=== PATIENT | male | born 1955 | race Caucasian/White ===

== ENCOUNTER 2018-09-27 06:50 | Outpatient (CLI) | payer MEDICARE, OTHER ==
--- NOTE | 2018-09-27 08:05 | ULT ---
BILATERAL RENAL ULTRASOUND: Date: 09/27/18 INDICATION: Right-sided flank pain and abdominal pain. FINDINGS: Right kidney measures 10.3 x 7.5 x 6.2 cm. There is mildly prominent extrarenal pelvis involving the right kidney. Left kidney measures 13.3 x 8.0 x 6.0 cm. There is a 3.0 cm cyst seen involving the lateral aspect of the inferior pole of left kidney. No hydronephrosis or solid renal lesion is evident. The pre-void bladder volume is 168 mL. IMPRESSION: 1. Left renal cyst. 2. Extrarenal pelvis of right kidney. POS: [facility]
== END 2018-09-27 06:51 | disposition home or self-care (01) ==
LOC: ULT 06:50
PROVIDERS: ATTEND Internal Medicine Endocrinology, Diabetes & Metabolism
DX: R10.9 Unspecified abdominal pain (principal); N28.1 Cyst of kidney, acquired
CPT/HCPCS: 76770

== ENCOUNTER 2018-10-12 14:29 | Emergency (ER) | payer MEDICARE, OTHER ==
[2018-10-12] MEDS ORDERED: Ondansetron PF 4 MG/2 ML Vial ONE (15:53)
[2018-10-12] MEDS ORDERED: Ketorolac Tromethamine 30 MG/ML VIAL ONE (15:53)
[2018-10-12 16:15] LABS: #Basophils 0.1 thou/uL (0.0-0.2); #Eosinphils 0.1 thou/uL (0.0-0.7); #Lymphocytes 1.6 thou/uL (1.20-3.40); #Monocytes 0.8 thou/uL (0.11-0.59); #Neutrophils 9.2 thou/uL (1.40-6.50); %Basophils 0.5 % (0.0-1.0); %Eosinophils 0.7 % (0.0-10.0); %Lymphocytes 13.9 % (21.0-51.0); %Monocytes 6.7 % (0.0-10.0); %Neutrophils 78.1 % (42.0-75.0); Hemoglobin 18.2 g/dL (14.0-18.0); Mean Corpuscular HGB CONC 34.5 g/dL (32.0-36.0); Mean Corpuscular Hemoglobin 33.1 pg (27.0-31.0); Mean Corpuscular Volume 95.8 fL (78.0-98.0); Mean Platelet Volume 9.2 fL (7.4-10.4); Platelet Count 270 thou/uL (130-400); RBC Distribution Width 11.7 % (11.5-14.5); Red Blood Cell (RBC) Count 5.52 mill/uL (4.70-6.10); White Blood Cell (WBC) Count 11.7 thou/uL (4.8-10.8)
[2018-10-12 17:01] LABS: Bilirubin Negative (Negative); Blood, Urine Negative (Negative); Clarity CLEAR (Clear); Glucose, Urine (Dipstick) 500 mg/dL (Negative); Leukocyte Negative (Negative); Nitrite Negative (Negative); Protein, Urine (Dipstick) Negative (Neg-Trace); Specific Gravity, Urine 1.035 (1.002-1.036); Urobilinogen 0.2 mg/dL (0.2-1.0); pH, Urine 5.5 (5.0-9.0)
[2018-10-12] MEDS ORDERED: Morphine 4 MG/ML VIAL ONE (17:09)
[2018-10-12 17:21] LABS: Calcium 9.7 mg/dL (7.8-10.44); Chloride 99 mmol/L (98-107); Potassium 4.1 mmol/L (3.5-5.1); Sodium 135 mmol/L (136-145)
[2018-10-12 17:22] LABS: Globulin 2.4 g/dL (2.4-3.5); Glucose 156 mg/dL (80-115); Protein, Total 6.4 g/dL (5.8-8.1)
[2018-10-12 17:23] LABS: Anion Gap 13 mmol/L (10-20); Carbon Dioxide 27 mmol/L (23-31)
[2018-10-12 17:24] LABS: Bilirubin, Total 1.1 mg/dL (0.2-1.2)
[2018-10-12 17:25] LABS: Alkaline Phosphatase 66 U/L (40-150); Calc. Creatinine Clearance 0 mL/min (70-130); Estimated GFR-MDRD Greater than 90
[2018-10-12 17:26] LABS: BUN (Urea Nitrogen) 16 mg/dL (8.4-25.7)
[2018-10-12 17:27] LABS: AST (SGOT) 14 U/L (5-34)
[2018-10-12 17:28] LABS: ALT (SGPT) 18 U/L (8-55); Lipase 12 U/L (8-78)
--- NOTE | 2018-10-12 17:32 | CT ---
CT ABDOMEN AND PELVIS WITHOUT CONTRAST 10/12/18 HISTORY: Back pain. FINDINGS: Absence of oral and IV contrast reduces the sensitivity of the exam particularly for evaluation of so lid organs and bowel. There is a 4 mm peripheral nodule at the right lung base. There is irregularity of the liver surface suspicious for cirrhosis. Heterogeneous lesions are seen in the liver, largest is in the left lobe measuring about 3.4 cm. There are adjacent 19 mm similar lesion is seen in the le ft lobe of the liver. No calcified gallstones are seen. No free air or free fluid is noted in the abd omen or pelvis. No calculi is seen in the kidneys, ureters or the urinary bladder. No hydroureteronephrosis seen. The prostate is enlarged. There is a 3.5 cm exophytic cyst arising from the left kidney. There is colonic diverticulosis. There is osteoarthritic lesions in the thoracolumbar spine and the p сергей. A soft tissue mass is seen in association with the destruction of the right transverse process extending to pedicle and body of L3 vertebra. A 4.5 cm soft tissue mass is seen along with destructi on of the posterior aspect of the right 9th rib. There is a fat containing right inguinal hernia. A n ormal appearing appendix is present. IMPRESSION: 1. No CT evidence of urinary tract calculi or obstruction. 2. Left renal cyst. 3. Colonic diverticulosis. 4. Prostatic enlargement. 5. Findings suspicious for metastatic disease involving the bones, liver, and lung. 6. Small hiatal hernia. POS: [facility]
== END 2018-10-12 18:14 | disposition home or self-care (01) ==
LOC: ERS 14:29
DX: M89.9 Disorder of bone, unspecified (principal); E11.9 Type 2 diabetes mellitus without complications; I10 Essential (primary) hypertension
CPT/HCPCS: 74176; 80053; 81003; 83690; 85025; 96361; 96374; 96375; J1885; J2270; J2405

== ENCOUNTER 2018-10-14 21:36 | Inpatient (IN) | payer MEDICARE, OTHER ==
[2018-10-14 23:07] LABS: #Eosinphils 0.1 thou/uL (0.0-0.7); #Lymphocytes 1.3 thou/uL (1.20-3.40); #Monocytes 0.9 thou/uL (0.11-0.59); #Neutrophils 10.3 thou/uL (1.40-6.50); %Basophils 0.3 % (0.0-1.0); %Eosinophils 0.6 % (0.0-10.0); %Monocytes 7.4 % (0.0-10.0); %Neutrophils 81.7 % (42.0-75.0); Mean Corpuscular HGB CONC 34.8 g/dL (32.0-36.0); Mean Corpuscular Hemoglobin 33.6 pg (27.0-31.0); Mean Corpuscular Volume 96.5 fL (78.0-98.0); Platelet Count 236 thou/uL (130-400); RBC Distribution Width 11.6 % (11.5-14.5); Red Blood Cell (RBC) Count 5.05 mill/uL (4.70-6.10); White Blood Cell (WBC) Count 12.6 thou/uL (4.8-10.8)
[2018-10-14] MEDS ORDERED: Morphine 2 MG/ML SYRINGE ONE (23:09)
[2018-10-14] MEDS ORDERED: Ketorolac Tromethamine 30 MG/ML VIAL ONE (23:10)
[2018-10-14] MEDS ORDERED: Ondansetron PF 4 MG/2 ML Vial ONE (23:10)
[2018-10-14 23:28] LABS: ALT (SGPT) 14 U/L (8-55); AST (SGOT) 15 U/L (5-34); Albumin 4.2 g/dL (3.4-4.8); Alkaline Phosphatase 70 U/L (40-150); Anion Gap 18 mmol/L (10-20); BUN (Urea Nitrogen) 16 mg/dL (8.4-25.7); Bilirubin, Total 1.2 mg/dL (0.2-1.2); Calc. Creatinine Clearance 0 mL/min (70-130); Calcium 10.5 mg/dL (7.8-10.44); Carbon Dioxide 23 mmol/L (23-31); Chloride 96 mmol/L (98-107); Estimated GFR-MDRD Greater than 90; Glucose 149 mg/dL (80-115); Lipase 15 U/L (8-78); Potassium 3.7 mmol/L (3.5-5.1); Protein, Total 6.2 g/dL (5.8-8.1); Sodium 133 mmol/L (136-145)
[2018-10-15] MEDS ORDERED: Morphine 2 MG/ML SYRINGE ONE ×3 (02:59→10:07)
[2018-10-15] MEDS ORDERED: Ondansetron PF 4 MG/2 ML Vial IVP PRN (08:46)
[2018-10-15] MEDS ORDERED: Acetaminophen 325 MG TAB PO PRN (08:46)
[2018-10-15] MEDS ORDERED: Zolpidem Tartrate 5 MG TAB PO PRN (08:46)
[2018-10-15] MEDS ORDERED: Enoxaparin Sodium 40 MG/0.4 ML SYRINGE SC SCH (09:00)
[2018-10-15] MEDS ORDERED: Dextrose 50% Abboject 50 ML SYRINGE SLOW IVP PRN (09:05)
[2018-10-15] MEDS ORDERED: Dextrose 5% in Water 1,000 ML IV PRN (09:05)
[2018-10-15] MEDS ORDERED: Enoxaparin Sodium 40 MG/0.4 ML SYRINGE ONE (09:06)
[2018-10-15] MEDS ORDERED: Famotidine 20 MG TAB ONE (09:07)
[2018-10-15] MEDS ORDERED: Morphine 4 MG/ML VIAL SLOW IVP PRN (09:30)
--- NOTE | 2018-10-15 09:55 | CT ---
CT CHEST WITH CONTRAST: Date: 10/15/18 COMPARISON: CT abdomen/pelvis dated 10/12/18. HISTORY: Evaluate lung lesion seen on prior CT. TECHNIQUE: Multiple contiguous axial images were obtained in a CT of the chest with contrast. Coronal reformats were performed. FINDINGS: There is a 2.4 cm mass in the right lower lobe. Other scattered smaller nodules are seen throughout t he right lung. Atelectasis is seen in both lung bases. No pneumothorax or pleural effusion seen. The heart is normal in size without focal cardiac abnormality. No hilar or mediastinal lymphadenopath y seen. There are calcified hilar and mediastinal lymph nodes. There is a 4.2 cm mass involving the right posterior 9th rib. A similar mass measuring 3.0 cm in size involves the anterior 4th rib on the right. A destructive mass is seen in the left apex measuring 6. 0 cm in size involving the 2nd rib. There is a heterogeneous area in the left lobe of the liver measuring approximately 3.2 cm in size, w hich does not meet criteria for a hemangioma and could represent a metastatic lesion. No other liver lesions are seen. The other visualized subdiaphragmatic structures are unremarkable. The chest wall s oft tissues are unremarkable. IMPRESSION: 1. Multifocal pulmonary metastases in the right lung. 2. Multiple osseous lesions are suspicious for osseous metastatic disease. 3. Lesion in the liver does not meet criteria for hemangioma and may represent a metastatic lesion t o the liver. POS: [facility]
[2018-10-15] MEDS: Famotidine 20 MG TAB PO SCH ×3 (10:10→20:17)
[2018-10-15] MEDS: Lisinopril/Hydrochlorothiazide 10 mg/12.5 mg Tablet PO SCH ×2 (10:10→12:03)
[2018-10-15] MEDS ORDERED: Morphine 4 MG/ML VIAL ONE (10:16)
[2018-10-15] MEDS ORDERED: Iopamidol 370 76% 100 ML VIAL ONE (12:42)
--- NOTE | 2018-10-15 13:59 | HP ---
HISTORY OF PRESENT ILLNESS: This is a 63-year-old white male, who presents with intractable pain. The patient was first seen on September 25, with a 5-week history of back pain. 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 At that time, he was given pain medications and muscle relaxers; however, he continued to have back pain. He was seen again on October 10, and renal ultrasound and chest x-ray were ordered. Renal ultrasound was found to be unremarkable for any renal lesions. The chest x-ray is still pending. However, the patient was complaining of increasing pain. No nausea or vomiting. He has been on pain medicines, complaining of constipation. He has had no weight change. His appetite has been normal. He presented to this emergency room, where a CAT scan was ordered where he was found to have soft tissue lesions, one on the right L3 transverse process as well as a lung lesion and multiple small liver lesions. PAST MEDICAL HISTORY: Includes history of kidney stones, prostatitis, hypertension, hyperlipidemia, and diabetes, followed by Dr. Thomason. PAST SURGICAL HISTORY: Herniated disk repair, lumbar surgery in 2000; left hernia surgery by Dr. Proctor in 1997; recent colonoscopy by Dr. Keller. FAMILY HISTORY: Father with diabetes, mother with hypertension, sisters with diabetes, paternal grandmother with diabetes, maternal grandfather with some unknown cancer, and maternal grandmother with diabetes. SOCIAL HISTORY: He is . He has never smoked. 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 He has one son, one daughter Irena with 3 children. MEDICATIONS: Medications include: 1. Lisinopril/hydrochlorothiazide daily. 2. Metformin 500 b.i.d. 3. Forxiga 10 daily. ALLERGIES: NONE. REVIEW OF SYSTEMS: As above. PHYSICAL EXAMINATION: VITAL SIGNS: Stable, afebrile. GENERAL: Presently with some back pain. HEENT: Clear. No lymphadenopathy noted. HEART: Regular rate and rhythm without murmur. LUNGS: Clear. ABDOMEN: Soft. Nontender. EXTREMITIES: No inguinal lymphadenopathy noted. No edema was present. LABORATORY DATA: White count 12.6, H and H 17 platelets 236. Sodium 133, potassium 3.7, creatinine 0.69, BUN 16, glucose 149, CRP 2.4, AST 13, and ALT 14. CT scan, as above. ASSESSMENT: 1. Intractable back pain. 2. Right L3 spinal lesion, which may be responsible for his back pain. 3. Liver and lung lesions, rule out metastatic disease. 4. Constipation. 5. Hypertension. 6. Hyperlipidemia. 7. Diabetes. PLAN: 1. We will consult Neurosurgery for the right L3 spinal lesion. This may be responsible for most of his pain. 2. Consult GI and Pulmonary for the liver and lung lesions. I am unsure about the approach to making the diagnosis. Probably, we would attempt to biopsy the most easily accessible lesion. 3. We will do a soapsuds enema for constipation. 4. We will order a CT of the chest with and without contrast. 5. I had a long discussion with the patient, his , and his daughter Irena. Job ID: [id number]
[2018-10-15] MEDS ORDERED: GoLYTELY 4,000 ml Bottle PO SCH (15:00)
[2018-10-15] MEDS ORDERED: Morphine 2 MG/ML SYRINGE SLOW IVP PRN (15:01)
[2018-10-15] MEDS ORDERED: Ketorolac Tromethamine 30 MG/ML VIAL ONE (15:26)
[2018-10-15 15:41] VITALS: BMI 29.0
[2018-10-15] MEDS: Morphine 4 MG/ML VIAL SLOW IVP PRN ×2 (17:38→20:41)
--- NOTE | 2018-10-15 21:15 | CON ---
DATE OF CONSULTATION: 10/15/2018 GI INPATIENT CONSULTATION NOTE REASON FOR CONSULTATION: Metastatic disease and liver lesion. HISTORY OF PRESENT ILLNESS: Reinier Leone is a 63-year-old gentleman being admitted for workup for what appear to be diffuse metastatic disease. He has a history significant only for diabetes, hypertension, and a bilateral inguinal hernia repair. He saw my partner, Dr. Tommy Ruth back in July 2017 for a positive Cologuard test and he had a colonoscopy at that time, which showed only 2 small polyps, 1 was hyperplastic and the other was an adenoma. They were both removed and Dr. Ruth recommended a 5-year followup colonoscopy interval. Mr. Leone reports that about 6 weeks ago, he started developing pain in his back, this has been slowly worsening. He started to get some knots in the ribs on his sides. The pain has been a bit migratory from one side of the back to the other, but now significantly debilitating. He was started on muscle relaxers and pain medications and with this, he has had a bit of constipation. His last bowel movement was about a week ago. There is no significant nausea or vomiting. His bowel habits were normal prior to getting started on the pain medications. He had a CT scan of the abdomen and pelvis last week, which was concerning for metastatic disease. CT of the chest was performed earlier today and this also demonstrates a 2.4 cm mass in the right lower lobe of the lung with other nodules in that area. He has several lesions to the ribs and a 3.2 cm lesion in the left lobe of the liver, all consistent with multifocal metastatic disease. A primary lesion is not clearly evident. REVIEW OF SYSTEMS: Full review of systems including constitutional, head, eyes, ears, nose, throat, GI, , cardiovascular, respiratory, musculoskeletal, and neurologic systems is negative except as noted in the HPI. PAST MEDICAL HISTORY: 1. Tubular adenoma of the colon, removed in July 2017. 2. Diabetes. 3. Hypertension. 4. Bilateral inguinal hernia repair. 5. Metastatic disease, unknown etiology, diagnosed within the past couple of weeks. ALLERGIES: NO KNOWN DRUG ALLERGIES. OUTPATIENT MEDICATIONS: 1. Lisinopril/hydrochlorothiazide. 2. Metformin. 3. Tylenol with Codeine. 4. Flexeril. SOCIAL HISTORY: No smoking, alcohol, or drug use. FAMILY HISTORY: A nephew had colon polyps. PHYSICAL EXAMINATION: VITAL SIGNS: Pulse 91, blood pressure 131/75, temperature 98.5, and 96% oxygen saturation on room air. GENERAL: A 63-year-old man, lying in bed, in no acute distress, in [id number] chronic pain. SKIN: No jaundice. No rashes were palpable. EYES: No scleral icterus. Extraocular movements intact. ENT: Mucous membranes are moist. No oral lesions. LYMPH: No submandibular or supraclavicular lymphadenopathy. THYROID: Nontender to palpation. HEART: Regular rate and rhythm. LUNGS: Clear to auscultation bilaterally. ABDOMEN: Bowel sounds hypoactive, but present. Soft and nontender to palpation throughout. EXTREMITIES: No peripheral edema. VESSELS: Radial pulses 2+ bilaterally. NEUROLOGIC: Cranial nerves 2 through 12 intact bilaterally. No focal deficits. LABORATORY STUDIES: WBC 12.6, hemoglobin 17, platelets 236. Sodium 133, potassium 3.7, BUN 16, creatinine 0.69, calcium 10.5. Lipase 15. LFTs all normal with total bilirubin 1.2, alkaline phosphatase 70, AST 15, ALT 14, albumin 4.2, lipase 15, and CRP is 2.48. IMAGING STUDIES: CT of the abdomen and pelvis from October 12 was performed, this was a noncontrast exam. It showed findings suspicious for metastatic disease to bone, liver, and lung. CT of the chest performed earlier today, 10/15/2018, showed a 2.4 cm mass in the right lower lobe of the lung, with other regional lung nodules. There is a 4.2 cm mass in the 9th ninth rib. There is a 3 cm lesion in the right 4th rib, and there is a 6 cm lesion in the 2nd rib. There is a 3.2 cm left liver mass on this exam. Liver appeared more heterogeneous on the prior scan. ASSESSMENT AND PLAN: 1. Metastatic disease to bone, lung, and liver, unknown primary. 2. A 4.2 cm right liver lesion. 3. Constipation, likely secondary to recent opioid and muscle relaxer use. I discussed with the patient that his imaging findings are certainly concerning for metastatic malignancy. Primary source is unclear. I feel colonic lesion would be less likely given that he had a colonoscopy just 1 year ago; however, there is a possibility of fast growing new lesion or missed lesion. Also, consider upper GI primary. For our part, we will plan on bowel preparation this evening with EGD and colonoscopy tomorrow. We will also order tumor markers including AFP, CEA, and CA 19-9 levels. I agree with Oncology and Pulmonary consultation as well. Thank you for the consultation. Please call at any time with questions or concerns. Job ID: [id number]
[2018-10-15] MEDS: Ketorolac Tromethamine 30 MG/ML VIAL IVP PRN (23:21)
[2018-10-16] MEDS: Morphine 4 MG/ML VIAL SLOW IVP PRN ×3 (01:08→14:44)
[2018-10-16] MEDS: 1/2 NS w/KCL 20 mEq 1,000 ML IV SCH ×2 (01:23→09:08)
--- NOTE | 2018-10-16 01:26 | CON ---
DATE OF CONSULTATION: REASON FOR CONSULTATION: Metastatic cancer. HISTORY OF PRESENT ILLNESS: A 63-year-old male presenting with worsening back pain. 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 He had tried some pain medicines and muscle relaxers that did not help. He was seen again on October 10, 2018, and had a renal ultrasound and chest x-ray that were unremarkable. However, along with worsening pain, he had a CT of the abdomen and pelvis on October 12, 2018, that showed heterogeneous lesions in the liver, the largest in the left lobe measuring 3.4 cm. He also had a 4.5 cm soft tissue mass along the 9th right rib. CT also showed a soft tissue mass in association with destruction of the right transverse process extending to the pedicle and body of L3 vertebra. The patient states that his pain has been in the upper back, lower back bilaterally and constantly moves around. He denies any pain in the abdomen or the chest. Denies any nausea, vomiting, or diarrhea. He has some constipation since starting pain medicines. Denies any fevers, night sweats or weight loss or poor appetite. He states that he overall feels pretty well other than the pain. The patient smoked a few cigarettes for 2 or 3 years in the 70s, but has not smoked since and does not drink any alcohol. He denies any extensive history of cancer, but stated his mother had lung cancer and he thinks his maternal grandmother had some type of cancer. REVIEW OF SYSTEMS: A 10-point review of systems is negative except as per HPI. PAST MEDICAL HISTORY: Kidney stones, prostatitis, hypertension, hyperlipidemia and diabetes. PAST SURGICAL HISTORY: Herniated disk repair, lumbar surgery in 2000. Left hernia surgery by Dr. Proctor in 1997. FAMILY HISTORY: Father with diabetes. Mother with hypertension. Sister with diabetes. Paternal grandmother with diabetes. Maternal grandfather with some unknown cancer. Maternal grandmother with diabetes and mother with lung cancer. SOCIAL HISTORY: . Former smoker of a few cigarettes a day for 2 to 3 years in the 1970s and has not smoked since. No alcohol. MEDICATIONS: Reviewed. ALLERGIES: NONE. PHYSICAL EXAMINATION: VITAL SIGNS: Temperature 97.6, pulse 84, respirations 18, saturating 95% on room air, and blood pressure 155/91. GENERAL APPEARANCE: The patient is lying in bed, in no acute distress. HEENT: Normocephalic, atraumatic. Anicteric sclerae. CARDIOVASCULAR: S1 and S2. Regular rate and rhythm. RESPIRATIONS: Clear to auscultation bilaterally. ABDOMEN: Soft, nondistended, and nontender with positive bowel sounds. EXTREMITIES: No edema. LYMPH: No lymphadenopathy palpable. NEUROLOGIC: Cranial nerves 2 through 12 grossly intact and otherwise nonfocal and moves all extremities. PSYCHIATRIC: Awake, alert, and oriented x3. LABORATORY DATA: White blood cells 12.6, hemoglobin 17.0, platelets of 236. Sodium 133, potassium 3.7, chloride 96, carbon dioxide 23, BUN 16, creatinine 0.69, glucose 149. Calcium 10.5. Albumin 4.2. CRP 2.48. IMAGING DATA: CTA of the abdomen and pelvis without contrast shows soft tissue mass around L3 and a 4.5 cm soft tissue mass in the right 9th rib along with heterogeneous lesions in the liver, largest in the left lobe measuring 3.4 cm and adjacent 19 mm similar lesion in the left lobe of the liver. This exam was limited due to lack of IV or oral contrast. CTA of the chest with contrast on October 15, shows a 2.4 cm mass in the right lower lobe of the lung and other scattered smaller nodules throughout the right lung. No hilar or mediastinal lymphadenopathy. There is a 4.2 cm mass involving the right posterior 9th rib, similar mass 3 cm in size involving the anterior 4th rib on the right, destructive mass seen on the left apex measuring 6 cm in size involving the second rib and heterogeneous area in the left lobe of the liver measuring 3.2 cm in size. No other liver lesions are seen on the CT of the chest. ASSESSMENT AND PLAN: A 63-year-old male presenting with worsening back pain and found to have multiple suspicious lesions for metastatic disease throughout the right lung, the liver, and bones. Other than pain, the patient is asymptomatic and overall feels well. He has a very limited smoking history and quit smoking over 40 years ago. He had a recent colonoscopy within the last year with removal of couple polyps. There is no other localizing symptoms other than back pain, which is likely from this osseous lesion seen on imaging. He has been seen by Dr. Varner, and is scheduled for EGD and colonoscopy tomorrow by Dr. Ruth. Dr. Reyes has been consulted for evaluation of possible lung biopsy. After looking at the scan, I believe the lung may be the most easily accessible and at least invasive for a biopsy as I do not see any peripheral lymph nodes for sampling. Due to liver lesions, AFT, CEA, CA-19-9 are currently pending. We would also recommend repeating a CT of the abdomen and pelvis with oral and IV contrast, which can be done after his endoscopies tomorrow as he is currently drinking his bowel prep. We would also recommend a bone scan for further evaluation. I have discussed the possibilities of different types of cancer with the patient, his and his daughter, and we will continue to follow along this patient with you. Thank you for this consult. Job ID: [id number]
--- NOTE | 2018-10-16 01:58 | CON ---
DATE OF CONSULTATION: 10/15/2018 SERVICE: Pulmonary Medicine. REASON FOR CONSULT: Pulmonary nodules. HISTORY OF PRESENT ILLNESS: The patient is a 63-year-old white male with past medical history significant for absolutely nothing. He does have a family history of dermatofibromas and have undergone excision on multiple occasions. That being said, this runs in his family. He has never had any significant issues with it and it has never caused any discomfort to him. He was in his usual state of health until about 6 weeks ago when he started having onset of back discomfort. It seemed to be severe in one location for a couple of days and then stop hurting him. It would then go to a different location and so on and so forth. These pains migrated for a period of time. After about 3 weeks of that, he underwent a CT of the back, which was abnormal. This prompted him to have a CT of the chest, abdomen, and pelvis. There were multiple lesions scattered throughout bilateral lungs. There were multiple osseous metastases that were identified. Ultimately, he was put in the hospital to expedite a workup. They are also managing his intractable pain at this point. PAST MEDICAL HISTORY: 1. Hypertension. 2. Dyslipidemia. 3. Type 2 diabetes mellitus. 4. History of nephrolithiasis. PAST SURGICAL HISTORY: 1. Herniated disk repair. 2. Lumbar surgery. 3. Herniorrhaphy. 4. Colonoscopy. 5. Excision of dermatofibromas. FAMILY HISTORY: Noncontributory. As previously noted, multiple family members have these skin lesions that required excision from time to time. SOCIAL HISTORY: He is . He is a lifelong nonsmoker. He has no exposure to chemicals, dust, asbestos, or tuberculosis. He denies any alcohol or illicit drugs. ALLERGIES: NO KNOWN DRUG ALLERGIES. MEDICATIONS: List of his inpatient medications was reviewed. No specific updates were made at this time. REVIEW OF SYSTEMS: General, head, ears, eyes, nose, throat, cardiovascular, respiratory, genitourinary, musculoskeletal, neurologic, and skin are negative except as mentioned in the HPI. PHYSICAL EXAMINATION: VITAL SIGNS: Afebrile, pulse 84, blood pressure 155/91, respirations 18, saturation 95% on room air. GENERAL: The patient is awake, alert, in no apparent distress. LUNGS: Excellent air entry with no prolonged expiratory phase, wheezing, rhonchi, or crackles. HEART: Normal rate, regular. ABDOMEN: Soft, nontender, nondistended. Bowel sounds are positive. MUSCULOSKELETAL: No cyanosis or clubbing. There is no pitting in the bilateral lower extremities. NEUROLOGIC: Grossly nonfocal. LABORATORY DATA: WBC 12.6, hemoglobin 17.0, platelets 236,000. Basic metabolic profile and liver function studies were essentially unremarkable other than a calcium of 10.5. CRP 2.48. IMAGIN. CT of the chest demonstrates multiple scattered bilateral pulmonary nodules. Most of these appeared to be pleural-based. There is soft tissue and osseous destruction present. 2. A CT of the abdomen and pelvis demonstrates renal cyst. Colonic diverticulosis. Prostate enlargement. Small hiatal hernia. ASSESSMENT: 1. Widely metastatic process, underlying etiology unknown. 2. Pulmonary nodules. 3. Pleural-based nodules. 4. Calcified mediastinal lymph nodes without diagnostic criteria for lymphadenopathy. DISCUSSION AND PLAN: Our differential remains wide. It could be a neoplastic process, inflammatory process, or infectious process. At this point, tissue was required to make this diagnosis. He is already set up for an EGD/colonoscopy for tomorrow. If there is nothing of note to biopsy, we can expedite an IR-guided biopsy of the right posterior thoracic lesion that is destroying the rib. Pulmonary will continue to follow along for the time being. I will suspend the Lovenox until the biopsy is complete. 70 minutes have been devoted to this patient in various activities. I personally reviewed all imaging studies and laboratory data noted within this document. For fifty percent of this time, I was interacting with the patient at the bedside or coordinating care with the care team. For the remainder of the time I was immediately available to the patient in the hospital unit. Job ID: [id number] [facility]
[2018-10-16 06:26] LABS: #Basophils 0.1 thou/uL (0.0-0.2); #Eosinphils 0.1 thou/uL (0.0-0.7); #Lymphocytes 1.5 thou/uL (1.20-3.40); #Monocytes 0.8 thou/uL (0.11-0.59); %Basophils 0.8 % (0.0-1.0); %Eosinophils 1.5 % (0.0-10.0); %Lymphocytes 19.6 % (21.0-51.0); %Monocytes 10.9 % (0.0-10.0); %Neutrophils 67.2 % (42.0-75.0); Mean Corpuscular HGB CONC 35.1 g/dL (32.0-36.0); Mean Corpuscular Hemoglobin 33.4 pg (27.0-31.0); Mean Corpuscular Volume 95.3 fL (78.0-98.0); Mean Platelet Volume 7.6 fL (7.4-10.4); Platelet Count 229 thou/uL (130-400); RBC Distribution Width 11.3 % (11.5-14.5); Red Blood Cell (RBC) Count 4.78 mill/uL (4.70-6.10); White Blood Cell (WBC) Count 7.5 thou/uL (4.8-10.8)
[2018-10-16 06:38] LABS: Anion Gap 14 mmol/L (10-20); BUN (Urea Nitrogen) 13 mg/dL (8.4-25.7); Calc. Creatinine Clearance 164 mL/min (70-130); Calcium 9.6 mg/dL (7.8-10.44); Carbon Dioxide 27 mmol/L (23-31); Chloride 101 mmol/L (98-107); Estimated GFR-MDRD Greater than 90; Glucose 135 mg/dL (80-115); Potassium 3.3 mmol/L (3.5-5.1); Sodium 139 mmol/L (136-145)
[2018-10-16] MEDS ORDERED: Morphine 4 MG/ML VIAL ONE (07:13)
[2018-10-16] MEDS ORDERED: Ketorolac Tromethamine 30 MG/ML VIAL ONE (09:20)
[2018-10-16] MEDS: Ketorolac Tromethamine 30 MG/ML VIAL IVP PRN ×3 (09:26→23:32)
[2018-10-16] MEDS ORDERED: Promethazine HCl 25 MG/ML VIAL IM PRN (12:44)
[2018-10-16] MEDS ORDERED: Ondansetron HCl/PF 4 MG/2 ML Vial IVP PRN (12:44)
[2018-10-16] MEDS ORDERED: Promethazine HCl 25 MG/ML VIAL SLOW IVP PRN (12:44)
--- NOTE | 2018-10-16 14:21 | CON ---
DATE OF CONSULTATION: 10/16/2018 SUBJECTIVE: The patient remains in good spirits, however, still has back pain. No nausea, vomiting, or chest pain. OBJECTIVE: VITAL SIGNS: Temperature 97.8, pulse 91, respirations 16, pulse ox 95, blood pressure 135/85. HEART: Regular rate and rhythm. LUNGS: Clear. ABDOMEN: Soft. LABORATORY DATA: White count 7.5, H and H 16 and 45. Potassium 3.3, creatinine 0.6. Blood sugar 150, 153, 135. CA 2.68. ASSESSMENT: 1. Intractable back pain. 2. Right L3 spinal lesion, which may be responsible for his back pain. 3. Liver, lung, and bone lesions. Rule out cancer. 4. Constipation, improved. 5. Hypertension. 6. Hyperlipidemia. 7. Diabetes. PLAN: 1. EGD and colonoscopy per Dr. Ruth today. 2. Based on GI findings, the patient may undergo a bronchoscopy with possible biopsy by Dr. Reyes. 3. Repeat CT of the abdomen and pelvis with oral and IV contrast after the procedures. 4. Discussed the case with the patient and his daughter, Irena. Job ID: [id number]
[2018-10-16] MEDS: Famotidine 20 MG TAB PO SCH ×2 (14:22→19:35)
[2018-10-16 14:24] LABS: INR-International Normal Ratio 1.1; PTT 30.5 SEC (22.9-36.1); Prothrombin Time 14.5 SEC (12.0-14.7)
[2018-10-16] MEDS ORDERED: Sodium Bicarbonate 2.5 MEQ/5 ML VIAL ONE (14:45)
[2018-10-16] MEDS ORDERED: PROPOFOL 200 MG/20 ML VIAL ONE (15:47)
[2018-10-16] MEDS ORDERED: Lidocaine 1% PF 5 ML VIAL ONE (15:47)
--- NOTE | 2018-10-16 16:16 | PRG ---
DATE OF SERVICE: 10/16/2018 SERVICE: Pulmonary Medicine INTERVAL HISTORY: The patient is breathing comfortably from a respiratory standpoint. Denies any current chest pain, fevers, chills, nausea, or vomiting. Otherwise, there has been no notable change to his condition. His pain is currently under good control. He is not having any respiratory difficulties. PHYSICAL EXAMINATION: VITAL SIGNS: Afebrile, pulse 77, blood pressure 154/85, respirations 16, saturation 98% on room air. GENERAL: The patient is awake, alert, in no apparent distress. LUNGS: Decent air entry. There is no prolonged expiratory phase or wheezing. HEART: Normal rate and regular. ABDOMEN: Soft, nontender, and nondistended. Bowel sounds are positive. MUSCULOSKELETAL: No cyanosis or clubbing. There is no pitting in the bilateral lower extremities. NEUROLOGIC: Grossly nonfocal. ASSESSMENT: 1. Widely metastatic process, underlying etiology unknown. 2. Pulmonary nodules. 3. Pleural-based nodules. 4. Calcified mediastinal lymph nodes without diagnostic criteria for lymphadenopathy. DISCUSSION AND PLAN: If there is nothing of note that is biopsied on the colonoscopy or EGD, we can proceed with an IR-guided biopsy of the left posterior rib destroying lesion. There is no role for bronchoscopy at this time as the yield will be quite low. Pulmonary will continue to follow until we have a clear course of action moving forward. Job ID: [id number]
[2018-10-16] MEDS: Lisinopril/Hydrochlorothiazide 10 mg/12.5 mg Tablet PO SCH (16:42)
--- NOTE | 2018-10-16 16:58 | ULT ---
ULTRASOUND GUIDED BIOPSY OF A RIGHT POSTERIOR PARASPINAL/RIB MASS 10/16/18 COMPARISON: None. CORRELATION: Chest CT 10/15/18. FINDINGS: Successful right posterior paraspinal soft tissue mass/rib mass with ultrasound guidance. A total of four 18 gauge core biopsy samples were obtained. Lesional tissue is present. Final pathologic diagnos is is pending. Incidental echogenic focus in the right back, superior to the iliac crest is noted and may represent a lipoma measuring 1.8 cm. TECHNIQUE: Consent obtained to perform a biopsy of a soft tissue mass in the posterior right paraspinal region i nvolving a right 9th rib. The skin was prepped and draped in the sterile fashion. 1% lidocaine buffer ed with sodium bicarbonate used for local anesthesia. Under ultrasound guidance, a total of four 18 g auge core biopsy samples were obtained. Lesional tissue is present. Sample was placed RPMI as well as formalin. Final pathologic diagnosis is pending. IMPRESSION: Successful right soft tissue mass biopsy with ultrasound guidance. POS: [facility]
--- NOTE | 2018-10-16 17:08 | RAD ---
UPRIGHT INSPIRATORY AND EXPIRATORY CHEST RADIOGRAPH: 10/16/18 HISTORY: Right sided soft tissue biopsy. FINDINGS: Upright inspiratory and expiratory chest radiograph demonstrate chronic changes of the lung parenchym a. No pneumothorax. Normal cardiac silhouette. There are destructive changes involving the posterior right 5th rib. IMPRESSION: No pneumothorax. POS: [facility]
--- NOTE | 2018-10-16 18:44 | RAD ---
INSPIRATORY EXPIRATORY CHEST: 10/16/18 HISTORY: Patient is status post biopsy of a right posterior 9th rib lesion. Evaluate for pneumothorax. Some linear atelectatic change in the left base. There is some minimal subsegmental atelectasis in th e right base. There is no signs of pneumothorax. IMPRESSION: No evidence of pneumothorax post biopsy. POS: [facility]
[2018-10-17] MEDS: Morphine 4 MG/ML VIAL SLOW IVP PRN ×7 (00:28→19:55)
[2018-10-17] MEDS: Ketorolac Tromethamine 30 MG/ML VIAL IVP PRN ×3 (05:55→19:49)
[2018-10-17] MEDS: Famotidine 20 MG TAB PO SCH (08:45)
[2018-10-17] MEDS: Lisinopril/Hydrochlorothiazide 10 mg/12.5 mg Tablet PO SCH (08:45)
--- NOTE | 2018-10-17 12:23 | CT ---
CT ABDOMEN AND PELVIS WITH IV AND ORAL CONTRAST: History: Metastatic cancer. Back pain. Comparison: 10-12-18 FINDINGS: Small amount of pleural fluid is present at the partially visualized lung bases. The expansile mass i nvolving the posterior aspect of the right 9th rib is again demonstrated. A large destructive lytic l esion also involves the T11 vertebral body. Destructive masses involving the right side of the L3 and the right pelvis are similar in appearance to the prior study. Liver demonstrates a nodular contour. Within the left liver lobe, there is heterogeneous enhancement in the area of abnormality on previous noncontrast study. Centrally, some increased contrast accumula tion is present on the portal venous phase imaging. The increased contrast is surrounded by an ill-de fined area of decreased density. The overall abnormality is approximately 4.1 cm greatest oblique marcelo meter on the coronal reformatted images. No other liver masses are reliably demonstrated. Cysts arise from the cortex of the left kidney. Calcification within the arterial structures. Prostate gland is enlarged. Urinary bladder is unremarkable. IMPRESSION: 1. Back pain is likely related to the destructive osseous lesions of the right 9th rib, T11 and L3 ve rtebrae. 2. Liver lesion in left liver lobe is confirmed. It has an unusual appearance as detailed above. Like ly not a hemangioma. For further evaluation of the liver mass, please consider radionuclide PET scan or MRI of the liver. 3. Interval appearance of small bilateral pleural effusions. 4. Atherosclerosis. POS: [facility]
--- NOTE | 2018-10-17 12:37 | CON ---
DATE OF CONSULTATION: 10/17/2018 SUBJECTIVE: The patient remains stable, does have persistent right flank pain, still has moderate pain with movement and getting out of bed. OBJECTIVE: VITAL SIGNS: Temperature 97.9, pulse 75, respirations 20, pulse ox 96, blood pressure 138/87. GENERAL: Stable. HEART: Regular rate and rhythm. LUNGS: Clear. ABDOMEN: Soft. EXTREMITIES: No edema. LABORATORY DATA: None. ASSESSMENT: 1. Postoperative day #1, status post rib biopsy by Radiology. 2. Intractable back pain. 3. Right L3 spinal lesion, probably responsible for back pain. 4. Liver, lung, and bone lesions. 5. Constipation, resolved. 6. Hypertension. 7. Hyperlipidemia. 8. Diabetes. PLAN: 1. CT of the abdomen with IV and oral contrast today. 2. Bone scan today. 3. We will begin fentanyl 25 mcg patch and titrate upwards. 4. We will discuss the case with Dr. Oneill. 5. Awaiting results of the biopsy. 6. We will have to address the right flank pain and see if Neurosurgery needs further evaluation. 7. I talked with the family. Once treatment begins, possibilities of the lesions will shrink and will relieve the pressure off the back so that the patient may not need a back procedure. Job ID: [id number]
--- NOTE | 2018-10-17 16:50 | NM ---
WHOLE BODY BONE SCAN: 10/17/18 COMPARISON: CT abdomen/pelvis 10/17/18. HISTORY: Metastatic cancer. Evaluate extent of osseous metastatic disease. TECHNIQUE: A whole body bone scan was performed after the administration of 33 millicuries of technetium 99m MDP . FINDINGS: There is abnormal increased uptake of the radiopharmaceutical in multiple ribs and surrounding both s houlders. No increased uptake is seen in the spine. There is an area of decreased uptake in a right p osterior rib surrounding by increased uptake. This appears to be in the 9th rib and corresponds to th e abnormality seen on CT in the right posterior rib. The soft tissues are unremarkable without soft tissue abnormality. IMPRESSION: Multifocal areas of abnormal uptake of radiopharmaceutical in the ribs and surrounding the shoulders. This likely represents reactive bone formation surrounding the lytic metastases seen on CT. Evaluati on for lytic metastases is limited with bone scan and is only a result of healing or adjacent normal bone being stimulated adjacent to the lytic metastases. POS: [facility]
--- NOTE | 2018-10-17 23:23 | PRG ---
DATE OF SERVICE: 10/17/2018 SERVICE: Pulmonary Medicine. INTERVAL HISTORY: The patient is actually doing well from a respiratory standpoint. He denies having any cough. He is not having any fevers, chills, nausea, or vomiting. He is tolerating p.o. We are awaiting the results of some of the biopsies. The other biopsy results have come back. I shared the results of the biopsy and the CT of the abdomen and pelvis with the patient. We are still awaiting the results of the chest wall biopsy. PHYSICAL EXAMINATION: VITAL SIGNS: Afebrile. Pulse 76, blood pressure 164/94, respirations 18, and saturation 95% on room air. GENERAL: The patient is awake, alert, in no apparent distress. LUNGS: Excellent air entry. No prolonged expiratory phase, wheezing, rhonchi, or crackles. HEART: Normal rate and regular. ABDOMEN: Soft, nontender and nondistended. Bowel sounds are positive. MUSCULOSKELETAL: No cyanosis or clubbing. No pitting in the bilateral lower extremities noted. NEUROLOGIC: Grossly nonfocal. IMAGING: CT of the abdomen and pelvis re-demonstrates the liver lesion, which is not consistent with a hemangioma. Multiple osseous lesions are present in the right 9th rib, T11, and L3 vertebra. Bilateral pleural effusions are quite small. Bone scan demonstrates multifocal areas of abnormal uptake in the ribs, surrounding shoulders. ASSESSMENT: 1. Pulmonary nodules. 2. Pleural-based nodules. 3. Widely metastatic process, underlying etiology not currently known. DISCUSSION AND PLAN: We are awaiting the results of biopsy of the left chest wall lesion. Pulmonary will continue to follow along. We are still making an attempt to achieve pain control. Fentanyl patch has been initiated. Hopefully, the patient will have significant relief from this device. Job ID: [id number]
[2018-10-18] MEDS: Morphine 4 MG/ML VIAL SLOW IVP PRN ×6 (00:26→20:14)
[2018-10-18] MEDS: Ketorolac Tromethamine 30 MG/ML VIAL IVP PRN ×3 (03:24→20:12)
--- NOTE | 2018-10-18 06:25 | OP ---
DATE OF PROCEDURE: 10/16/2018 PROCEDURES PERFORMED: Esophagogastroduodenoscopy with biopsy and colonoscopy with snare polypectomy. PREOPERATIVE DIAGNOSES: Abnormal CT scan of the liver and chest showing metastatic disease of unknown primary. DESCRIPTION OF PROCEDURE: Informed consent was obtained from the patient. He was sedated with total intravenous anesthesia. The bite block was placed, and the endoscope was advanced easily to the second portion of the duodenum and retroflexion was performed in the stomach. The esophagus had grade B erosive esophagitis in the distal esophagus. The stomach had nonerosive erythematous gastritis in the body and antrum. Retroflex views in the stomach were unremarkable. First portion of the duodenum had erosive duodenitis and the second portion of the duodenum was normal. Biopsies were obtained from the stomach to rule out H. Pylori. The patient was turned around. Rectal exam was performed and was normal. The colonoscope was advanced to the cecum, where the ileocecal valve and appendiceal orifice were clearly identified. The preparation quality was fair at best. The procedure was not adequate for identifying [id number] lesions. There were no tumors or masses to explain the metastatic disease in the colon. The colon was extensively irrigated. There was diverticulosis throughout the colon. Retroflex views in the rectum were unremarkable. There was a 5 mm polyp removed by cold snare polypectomy from the rectum. IMPRESSION: 1. Erosive esophagitis, gastritis, and erosive duodenitis likely secondary to the Aleve, which he has been taking for pain. Biopsies were obtained from the stomach to rule out H. Pylori. 2. Small polyp removed from the rectum by cold snare polypectomy. 3. Diverticulosis throughout the colon. RECOMMENDATIONS: 1. Follow through with Interventional Radiology with biopsy of the lytic lesion. 2. CT scan of the abdomen and pelvis. Job ID: [id number]
[2018-10-18] MEDS ORDERED: Dexamethasone 10 MG/ML VIAL SLOW IVP ONE (08:09)
[2018-10-18] MEDS ORDERED: Dexamethasone 10 MG/ML VIAL SLOW IVP SCH (09:00)
[2018-10-18] MEDS ORDERED: Amlodipine 5 MG TAB PO SCH (09:00)
[2018-10-18] MEDS ORDERED: fentaNYL 50 mcg/hour Patch TD SCH (09:00)
[2018-10-18] MEDS: Lisinopril/Hydrochlorothiazide 20/25 mg Tablet PO SCH (09:16)
[2018-10-18] MEDS: Gabapentin 100 MG CAP PO SCH ×3 (09:17→20:07)
[2018-10-18] MEDS: Enoxaparin Sodium 40 MG/0.4 ML SYRINGE SC SCH (09:17)
[2018-10-18] MEDS: Polyethylene Glycol 3350 17 GM Packet PO SCH ×2 (09:22→12:31)
[2018-10-18] MEDS ORDERED: Metoprolol Tartrate 25 MG TAB PO SCH (12:00)
[2018-10-18] MEDS: Insulin Regular 300 UNITS/3 ML VIAL SC PRN ×2 (12:26→17:10)
--- NOTE | 2018-10-18 14:46 | CON ---
DATE OF CONSULTATION: 10/18/2018 SUBJECTIVE: The patient with chronic back pain. Presently, receiving fentanyl 25 patch. Still with moderate pain, requiring occasional IV morphine. OBJECTIVE: VITAL SIGNS: Temperature 98.0, pulse 72, respiration 16, pulse ox 95%, blood pressure 173/90. HEART: Regular rate and rhythm. LUNGS: Clear. ABDOMEN: Soft. LABORATORY DATA: Stomach and colon biopsy is benign. ASSESSMENT: 1. Chronic back pain secondary to T11 and L3 spinal lesions. 2. Postoperative day #2, status post T9 rib biopsy. 3. Liver, lung, and bone lesions. 4. Constipation. 5. Hypertension. 6. Hyperlipidemia. 7. Diabetes. PLAN: 1. I talked with Neurosurgery. They are presently talking with patient. No surgical intervention at this time. 2. Hopefully, biopsy results of the rib will be back today. Then, Dr. Oneill, can make decisions on treatment plan. 3. Increase fentanyl to 50 transdermal patch q.3 days. 4. Initiate Neurontin 100 t.i.d. 5. Physical Therapy to assist with ambulation. 6. MiraLax daily for constipation. 7. I talked at length again with multiple family members including the . 8. Consider Social Service assistance. Job ID: [id number]
[2018-10-18] MEDS: Metoprolol Tartrate 25 MG TAB PO SCH (20:07)
[2018-10-18] MEDS: Amlodipine 5 MG TAB PO SCH (20:08)
[2018-10-18] MEDS: Dexamethasone 4 mg/ml Vial SLOW IVP SCH (20:10)
[2018-10-19] MEDS: Insulin Regular 300 UNITS/3 ML VIAL SC PRN ×4 (05:38→20:24)
[2018-10-19] MEDS: Morphine 4 MG/ML VIAL SLOW IVP PRN ×3 (06:42→20:05)
[2018-10-19] MEDS: Ketorolac Tromethamine 30 MG/ML VIAL IVP PRN ×2 (06:47→10:36)
[2018-10-19] MEDS: Lisinopril/Hydrochlorothiazide 20/25 mg Tablet PO SCH (08:17)
[2018-10-19] MEDS: Dexamethasone 4 mg/ml Vial SLOW IVP SCH ×2 (08:18→20:06)
[2018-10-19] MEDS: Metoprolol Tartrate 25 MG TAB PO SCH ×2 (08:18→20:05)
[2018-10-19] MEDS: Polyethylene Glycol 3350 17 GM Packet PO SCH (08:18)
[2018-10-19] MEDS: Enoxaparin Sodium 40 MG/0.4 ML SYRINGE SC SCH (08:18)
[2018-10-19] MEDS: Gabapentin 100 MG CAP PO SCH ×2 (09:31→15:06)
--- NOTE | 2018-10-19 10:08 | PRG ---
DATE OF SERVICE: 10/18/2018 SERVICE: Pulmonary Medicine. INTERVAL HISTORY: The patient is breathing comfortably. He has no complaints of cough, fevers, chills, nausea, or vomiting. His strength is actually little bit better. His pain is under slightly better control. Otherwise, there has been no interval change to his condition. PHYSICAL EXAMINATION: VITAL SIGNS: Afebrile, pulse 82, blood pressure 178/98, respirations 12, and saturation 96% on room air. GENERAL: The patient is awake, alert, in no apparent distress. LUNGS: Excellent air entry without prolonged expiratory phase or wheezing. HEART: Normal rate, regular. ABDOMEN: Soft, nontender, nondistended. Bowel sounds are positive. MUSCULOSKELETAL: No cyanosis or clubbing. EXTREMITIES: There is no pitting in the bilateral lower extremities. NEUROLOGIC: Grossly nonfocal. LABORATORY DATA: Pathology of the gastric biopsy was unremarkable. It showed some gastritis. An adenoma was removed from the colon. Poorly differentiated spindle cell malignancy is present, suspicious for sarcoma. This was the soft tissue biopsy, which was ultrasound-guided. ASSESSMENT: 1. Spindle cell carcinoma, suspecting sarcoma, widely metastatic. 2. Intractable pain. DISCUSSION AND PLAN: At this point, the patient no longer has requirements for Pulmonary Critical Care opinion. As such, I will sign off. Unfortunately, the prognosis for this is likely quite poor. If I can be of any additional service, please give me a phone call. Job ID: [id number]
[2018-10-19] MEDS ORDERED: HYDROcodone/Acetaminophen 10/325 mg Tablet PO PRN (16:09)
[2018-10-19] MEDS: Amlodipine 5 MG TAB PO SCH (20:06)
[2018-10-19] MEDS: Gabapentin 300 MG CAP PO SCH (20:06)
[2018-10-19] MEDS: HYDROcodone/Acetaminophen 10/325 mg Tablet PO PRN (21:27)
--- NOTE | 2018-10-19 21:53 | CON ---
DATE OF CONSULTATION: 10/19/2018 REASON FOR CONSULTATION: Mr. 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 I was asked to see him for consideration of palliative radiation therapy. This is a stage IV lesion. HISTORY OF PRESENT ILLNESS: Mr. Leone states that about 6 weeks ago, he began experiencing some pains in the back. 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 When the pain did not improve, he saw his family physician, who tried steroids and muscle relaxers. This did not result in any improvement. Eventually, he was seen in the emergency room and again this was felt to be musculoskeletal in nature, and he was given pain medications. However, the pain progressed and he had trouble standing and moving because of the pain, and he subsequently was brought by ambulance back to [place] where he was admitted for workup and evaluation. He has had CT scans of the chest, abdomen, and pelvis. This showed multiple areas consistent with bone metastasis. There was also a lesion in the liver and there were multiple lung lesions all concerning for metastatic disease. He did undergo an EGD and colonoscopy, which showed no evidence of primary site. He therefore underwent an ultrasound-guided biopsy of the 4 cm lesion involving the soft tissue and rib of the 9th posterior rib. Pathology from that returned as poorly differentiated spindle cell malignancy with suspicion for sarcoma. The pathology has been sent to [facility] for further evaluation and characterization. I have been asked to see the patient to discuss possible palliative radiation therapy. His pain is doing a little better as they try to control it with fentanyl patches, Neurontin, and morphine for breakthrough. He has been able to use a walker and ambulate some. His biggest reason for not being able to ambulate is because of the pain in the back. He denied any leg weakness or numbness. He has no recent weight loss. He has no difficulty with urination. He has had some constipation since doing the pain medication. He denies any headaches. He voices no other complaints. PAST MEDICAL HISTORY: 1. Diabetes. 2. Hypertension. 3. Hypercholesterolemia. 4. History of kidney stones. 5. History of prostatitis. 6. Status post herniated disk with back injections in the past. 7. Status post left hernia repair. MEDICATIONS: 1. Dexamethasone. 2. Norvasc. 3. Lovenox. 4. Fentanyl. 5. Neurontin. 6. Toradol. 7. Lisinopril/hydrochlorothiazide. 8. Metoprolol. 9. Protonix. 10. MiraLax. 11. Ambien p.r.n. ALLERGIES: NO KNOWN MEDICAL ALLERGIES. SOCIAL HISTORY: He is , and his and daughter are with him today. He briefly smoked for 2 years when he was young, but has not smoked cigarettes for many years. He denies any alcohol use. 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 FAMILY HISTORY: His mother at age 80 from lung cancer. His father at age 84 from complications of diabetes and heart disease. He had a paternal grandmother, who had cancer and at age 80. He also had a paternal uncle who had cancer, the type of which is unknown to him. There is no other family history of malignancy. REVIEW OF SYSTEMS: A 12-system review of systems is otherwise negative. PHYSICAL EXAMINATION: VITAL SIGNS: Height 5 feet 11 inches, weight is 208 pounds, blood pressure is 137/89, pulse is 76, respirations 18, temperature is 97.8, O2 saturation is 96%. GENERAL: He is alert and oriented and actually looks fairly comfortable, lying flat in bed. Karnofsky Performance Status is 70%. HEENT: Eyes; pupils are equal, round, and reactive to light. Extraocular movements are intact. ENT; oral cavity and oropharynx, no oral infection, no lesion or erythema. Palate elevates symmetrically. Gingiva is intact. NECK: Supple without cervical or supraclavicular adenopathy. No thyromegaly. Larynx midline. LUNGS: Breathing non-labored. Clear to auscultation and percussion, both anteriorly and posteriorly. HEART: Regular rate and rhythm without murmur. No lower extremity edema. BACK: No tenderness on percussion of his spine. The subjective area of tenderness is over the right flank region. LYMPHATIC: No axillary or inguinal adenopathy. ABDOMEN: Bowel sounds present. Soft, nontender, nondistended without mass or hepatosplenomegaly. Liver percusses its normal size. SKIN: Without rash or purpura. NEUROLOGIC: Cranial nerves 2 through 12 grossly intact. Motor strength is 5/5 in both upper and lower extremities and all muscle groups tested. Reflexes are diminished, but symmetrical. Gait was not tested. LABORATORY DATA: Pathology here was interpreted as a poorly differentiated spindle cell malignancy favoring sarcoma. Immunostains were felt to exclude lymphoma and melanoma. It was strongly positive for vimentin and pankeratin. It was felt the immunostains supported either a sarcoma or a sarcomatoid carcinoma. Radiologic: CT scan of the chest, abdomen, and pelvis and bone scan were all personally reviewed. He has multiple lesions in the lung and bone. He has a lesion involving the left lung apex and the 2nd rib laterally which measures about 6 cm. The right posterior 9th rib has a soft tissue mass/rib mass that is about 4 cm. He has a lytic lesion involving the T11 vertebral body. He has a lesion involving the L3 vertebral body on the right, likely coming from the bone that is at the neural foramina. There was no evidence of canal encroachment by any of the lesions in the spine. He has a mass in the liver. He also has several other small bone metastases. ASSESSMENT: Mr. 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 I think a primary sarcoma is unlikely given that he does not have a significant soft tissue or retroperitoneal mass. The soft tissue mass in the 9th rib is clearly coming from the rib and extending into the soft tissue. PLAN: I had a long discussion with Mr. Leone and his and daughter regarding his diagnosis, prognosis, prognostic factors and treatment options. His pain control has improved, although he is still limited in motion by his pain. He has no evidence of spinal cord compression nor does have any evidence of impending spinal cord compression. Mostly, he has difficulty in a standing position because of the pain, which I think is likely coming from the lesion involving the 9th rib on the right. A component of this could be coming from lytic lesion involving the L3 vertebral body causing some radiculopathy, but I think most likely the patient is coming from the lesion on the 9th rib. Pathology has been sent to [facility], and we discussed the potential possibilities of the pathology. I agree with the [facility] review. I explained that this specific pathology is probably going to more impact his systemic therapy/chemotherapy than it is my recommendation for radiation therapy. I made the recommendation that we treat the lesion in the rib as well as the L3 lesion with radiation therapy. The logistics of radiation as well as the benefits and risk of treatment were discussed. The simulation procedure was discussed. Side effects would include, but not be limited to skin reaction, fatigue, lower blood counts, nausea, vomiting, small risk of radiation pneumonitis, small risk of damage to his intestines or kidneys, and rarely other unforeseen side effects from his radiation therapy. He is extensively agreeable to proceed at this time. We will make arrangements for him to undergo simulation on Monday. I explained that we will need to get his pain under control with medications as he likely will not experience significant pain relief for several weeks from the radiation therapy. He actually looks fairly comfortable at the present, but is having more pain with movement. Hopefully, with some slight adjustments of his pain medication as is being done, we can get him comfortable enough that he can be discharged home. The radiation therapy can be given as an outpatient. Time was taken to answer all other questions and they are agreeable to proceed with radiation therapy. They are contemplating to get into second opinion at [facility], which I supported if they so desired. Thank you for this interesting consultation. Job ID: [id number]
--- NOTE | 2018-10-19 22:42 | PRG ---
DATE OF SERVICE: 10/19/2018 SUBJECTIVE: The patient's main complaint is back pain and inability to maneuver without significant pain. OBJECTIVE: VITAL SIGNS: Temperature 97.8, pulse 65, respiration 18, pulse ox 96%, and blood pressure 137/89. GENERAL: In moderate pain from his back. HEENT: Clear. HEART: Regular rate and rhythm. LUNGS: Clear. ABDOMEN: Soft. EXTREMITIES: No edema. LABORATORY DATA: Blood sugar 206, 245, and 288. ASSESSMENT: 1. Chronic back pain secondary to the T11 and L3 spinal lesion. 2. Postoperative day #3 status post T9 rib biopsy. 3. Liver, lung, and bone lesions. 4. Constipation. 5. Hypertension. 6. Hyperlipidemia. 7. Diabetes. PLAN: 1. I talked with Dr. Mason Nguyen. Probable, no neurosurgery intervention at this time. 2. I did talk with Pathology and they suspect a sarcoma or sarcoma-related carcinoma. 3. I talked with Dr. Elkins, who plans to see the patient today. The patient will probably require radiation treatment for pain control and possibly referral to [facility]. 4. Continue pain control with fentanyl and morphine. Job ID: [id number]
[2018-10-20] MEDS: HYDROcodone/Acetaminophen 10/325 mg Tablet PO PRN ×4 (02:31→16:34)
[2018-10-20] MEDS: Insulin Regular 300 UNITS/3 ML VIAL SC PRN ×3 (06:31→20:32)
[2018-10-20] MEDS: Gabapentin 300 MG CAP PO SCH ×3 (08:47→20:17)
[2018-10-20] MEDS: Lisinopril/Hydrochlorothiazide 20/25 mg Tablet PO SCH (08:47)
[2018-10-20] MEDS: Metoprolol Tartrate 25 MG TAB PO SCH ×2 (08:47→20:19)
[2018-10-20] MEDS: Polyethylene Glycol 3350 17 GM Packet PO SCH (08:47)
[2018-10-20] MEDS: Dexamethasone 4 mg/ml Vial SLOW IVP SCH (08:47)
[2018-10-20] MEDS: Enoxaparin Sodium 40 MG/0.4 ML SYRINGE SC SCH (08:48)
[2018-10-20] MEDS ORDERED: Insulin Glargine 14 UNITS in Pre-Filled Syringe 1 EACH SC SCH (10:45)
[2018-10-20] MEDS: fentaNYL 75 mcg/hour Patch TD SCH (13:58)
--- NOTE | 2018-10-20 18:34 | CON ---
DATE OF CONSULTATION: 10/20/2018 This is a hospital followup for pain management. The patient was initially seen yesterday. SUBJECTIVE: The patient reports pain is improved with Fentanyl 50 mcg, Duragesic and use of hydrocodone 10/325 mg tablets one to two q.4 to 6 hours for breakthrough pain started yesterday. He has required one dose of IV morphine through the evening and no Toradol. He reports ambulating this morning in the [place] and tolerating a bath with assist from his family as well as improved tolerance to activity with the new pain medication regimen. He continues to still report 5/10 with activities however. He denies any adverse reaction to the current medications other than continued constipation with no BM yet. The first dose of Movantik was given this a.m. He continues to have good appetite and take fluids and orals as well. He does express concern for having uncontrolled pain once he is discharged home from the hospital. REVIEW OF SYSTEMS: Negative except for above noted in subjective. PHYSICAL EXAMINATION: VITAL SIGNS: Stable. Blood pressure 164/93, heart rate 63, respirations 16, he is saturating 98% on room air. GENERAL: The patient appears well. He is resting in bed, no distress, visiting with family, appears to be comfortable and conversational. HEENT: He is normocephalic and atraumatic. CARDIOVASCULAR: Regular rate and rhythm with no peripheral edema appreciated in extremities. LUNGS: Clear bilaterally to auscultation. No distress or labored breathing. No supplemental oxygen required. ABDOMEN: Soft. Nontender. MUSCULOSKELETAL: Cervical range of motion remains full with bilateral upper extremity strength 5/5; DTR bilateral +2 throughout upper extremities. No cervical vertebral spine tenderness or paraspinal musculature spasm appreciated. Thoracic spine with only mild tenderness with palpation in the thoracic T10-T11 region, no deformity appreciated. He does have [id number] sharp pain with palpation in the right intercostal margin region. Thoracic range of motion is full. Lumbar spine with no vertebral spine tenderness with palpation. Bilateral lower extremity strength remains 5/5 with negative bilateral straight leg raise. Bilateral dorsiflexion as well as plantar flexion remains 5/5 with DTR +2 bilaterally. Bilateral SI joints without tenderness on exam. NEUROLOGIC: Neurologically, he remains alert and oriented x3, appropriate, no clonus. ASSESSMENT AND PLAN: 1. 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 We will plan to discontinue his Fentanyl 50 mcg and increase it to Fentanyl 75 mcg q.72 hours for improved constant pain relief with continued use of hydrocodone 10/325 mg tablet as needed every 4 to 6 hours. The patient will likely require less oral hydrocodone with increase of fentanyl today. Continue gabapentin 300 mg tablet t.i.d. We will re-evaluate in a.m. for pain management, with goal to discharge the patient home with pain regimen effective for home. We will discuss possible intercostal blocks for the right intercostal pain with Dr. Ramos on Monday. The patient will need to follow up in clinic for medication followup in 3 weeks. I have given all of his information to the family today. 2. Opioid-induced constipation, plan to continue the Movantik 25 mg tablet 1 p.o. daily adding some colace 100 mg 1 p.o., b.i.d. and MiraLax 17 g and liquid titrated for BM. Job ID: [id number]
[2018-10-20] MEDS: Dexamethasone 4 MG TAB PO SCH (20:17)
[2018-10-20] MEDS: Docusate 100 MG CAP PO SCH (20:18)
[2018-10-20] MEDS: Amlodipine 5 MG TAB PO SCH (20:19)
--- NOTE | 2018-10-20 23:25 | PRG ---
DATE OF SERVICE: 10/20/2018 HISTORY OF PRESENT ILLNESS: The patient states his pain is somewhat better with fentanyl and hydrocodone. 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 The patient normally takes metformin and prior Farxiga for blood glucoses, currently approximately 16 years of insulin with worsening blood sugars on steroids. The patient initiated on Lantus this morning. OBJECTIVE: VITAL SIGNS: Review of vital signs; temperature of 97.9, pulse was 66, respiratory rate of 16, oxygen saturation of 98% on room air, and blood pressure 138/78. GENERAL: The patient is alert and oriented, in no acute distress, pleasant. HEENT: Head is normocephalic and atraumatic. Extraocular movements are intact. Sclerae white. Oral mucosa is moist. NECK: Supple. HEART: Regular rate and rhythm. No murmurs are auscultated. LUNGS: Clear to auscultation bilaterally. No rubs or wheezes. The patient has pain along spine and ribs with palpation and range of motion. MUSCULOSKELETAL: Lower extremities without cyanosis or edema. NEUROLOGIC: The patient is alert and oriented x3. No focal deficits. LABORATORY DATA: Blood glucose range in the last 12 hours; 197 to 281. Last creatinine check on 10/16/2018 was 0.6. ASSESSMENT AND PLAN: Apparent sarcoma. Treatment plan per Radiation Oncology and Hematology/Oncology. Pain control per Interventional Pain Management, Dr. Ramos. We will continue to titrate insulin requirements on a 24-hour basis. Continue sliding scale insulin while inpatient. The patient is to be continued on [place], fentanyl, Neurontin, and steroids. Continue to follow. Deep venous thrombosis prophylaxis with 40 mg of Lovenox. Job ID: [id number]
[2018-10-21] MEDS: HYDROcodone/Acetaminophen 10/325 mg Tablet PO PRN ×6 (01:01→21:54)
[2018-10-21] MEDS: Morphine 4 MG/ML VIAL SLOW IVP PRN ×2 (03:48→20:16)
[2018-10-21] MEDS: Insulin Regular 300 UNITS/3 ML VIAL SC PRN ×3 (05:11→17:51)
[2018-10-21] MEDS ORDERED: Insulin Glargine 14 UNITS in Pre-Filled Syringe 1 EACH SC SCH (09:00)
[2018-10-21] MEDS ORDERED: GoLYTELY 4,000 ml Bottle PO SCH (09:30)
[2018-10-21] MEDS: Polyethylene Glycol 3350 17 GM Packet PO SCH (09:34)
[2018-10-21] MEDS: Lisinopril/Hydrochlorothiazide 20/25 mg Tablet PO SCH (09:37)
[2018-10-21] MEDS: Enoxaparin Sodium 40 MG/0.4 ML SYRINGE SC SCH (09:37)
[2018-10-21] MEDS: Docusate 100 MG CAP PO SCH ×2 (09:37→20:44)
[2018-10-21] MEDS: Gabapentin 300 MG CAP PO SCH ×3 (09:38→20:43)
[2018-10-21] MEDS: Dexamethasone 4 MG TAB PO SCH ×2 (09:38→20:43)
[2018-10-21] MEDS: Metoprolol Tartrate 25 MG TAB PO SCH ×2 (09:38→20:43)
[2018-10-21] MEDS ORDERED: Insulin Glargine 20 UNITS in Pre-Filled Syringe 1 EACH SC SCH (11:45)
[2018-10-21] MEDS: tiZANidine HCl 4 MG TAB PO PRN (17:58)
[2018-10-21] MEDS: Amlodipine 5 MG TAB PO SCH (20:43)
--- NOTE | 2018-10-21 21:42 | CON ---
DATE OF CONSULTATION: 10/19/2018 REASON FOR CONSULTATION: Intractable back pain secondary to metastatic cancer. HISTORY OF PRESENT ILLNESS: Mr. Leone is a 63-year-old male, who presented to the emergency room with intractable back pain and rib pain that he reports have been present for 5 to 6 weeks. He was evaluated by Dr. 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 He was treated with oral steroids and muscle relaxants with no notable improvement of his pain. He was reevaluated and further diagnostic imaging was completed, which has ultimately shown since his admission to the hospital on 10/14/2018, multiple lesions notable for metastatic disease throughout the right lung, liver, and bones. 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 He has been evaluated by Radiation Oncology and is scheduled to start radiation therapy next week on lesions in the right rib and spine. CT of the chest indicates a 2.4 cm mass in the right lower lobe. CT of the abdomen and pelvis indicate lesions in the liver, largest in the left lobe as well as soft-tissue mass along the 9th right rib with an another mass involving the anterior 4th rib on the right. Mass seen in left apex involving the second rib as well. CT also indicated soft-tissue mass with association of destruction of the right transverse process extending to the pedicle and vertebral body of the L3 as well as an osseous lesion at T11. The patient does desire to discharge home prior to radiation therapy if able to control his pain and work with therapy and perform ADLs. Mr. Leone reports the pain is 6/10 at rest currently to the mid to low back that radiates to the right flank region. The patient is 10/10 with activity, he was not able to do PT today. It is aggravated with standing, activity, and mobility. He denies any lower extremity weakness or radicular pain down either lower extremities. He describes the pain is sharp, stabbing, and radiating to the right hip region intermittently. He denies any bowel or bladder dysfunction or incontinence and in fact reports constipation for the past several days. He is tolerating p.o. diet well and fluid intake. He is using rolling walker for assist with gait for balance and stability that is limited secondary to his back pain. On occasion, he feels right-sided chest wall pain, however, this is not limiting function and is tolerable for him currently. His current pain medications include fentanyl 50 mcg Duragesic which was recently increased from 25 mcg in the last 24 hours only, with morphine 4 mg IV push for breakthrough pain and Toradol 30 mg IV push for breakthrough pain. He denies any adverse reactions from the current medication regimen other than it is not effective with pain control. He has received morphine for breakthrough pain and Toradol one time in the past 9 hours. The patient is opioid naive. REVIEW OF SYSTEMS: Full review of systems completed and is negative other than noted in the HPI. PAST MEDICAL HISTORY: Includes kidney stones, hypertension, hyperlipidemia, diabetes mellitus type 2, previous lumbar epidural steroid injections back in 2008 with resolution of his radiating back pain. PAST SURGICAL HISTORY: Includes bilateral inguinal hernia repair. FAMILY HISTORY: Significant for diabetes, hypertension, mother with lung cancer, paternal grandmother with cancer of unknown type. ALLERGIES: NO KNOWN DRUG ALLERGIES. SOCIAL HISTORY: The patient is with 2 children. History of smoking in the past for 2 to 3 years over 30 years ago, has not smoked since then. Denies EtOH. MEDICATIONS: Reviewed with the current MAR. PHYSICAL EXAMINATION: VITAL SIGNS: Stable. Blood pressure 137/89, temperature is 97.8, heart rate 76, respirations 18, 96% on room air. GENERAL APPEARANCE: The patient is lying in bed, visiting with family, appears to be comfortable. Pain with repositioning himself in bed. No acute distress noted. HEENT: Normocephalic and atraumatic. CARDIOVASCULAR: Regular rate and rhythm. No peripheral edema appreciated in the extremities. LUNGS: Clear bilaterally to auscultation, no distress or labored breathing. ABDOMEN: Soft and nontender. MUSCULOSKELETAL: Cervical range of motion is full with bilateral upper extremity strength 5/5, deep tendon reflexes bilateral +2 throughout upper extremities. No cervical vertebral spine tenderness or paraspinal musculature spasms. Thoracic spine with moderate tenderness with palpation in the T10-T11 region, no deformity appreciated. Thoracic range of motion is limited secondary to pain while in bed. Lumbar spine with vertebral body tenderness in the L2-3 region with palpation that is [id number]. Bilateral lower extremity strength is 5/5 with a positive straight leg raise from the supine at 90 degrees on the left, with pain in the mid back. Bilateral dorsiflexion as well as plantar flexion is 5/5 with deep tendon reflexes +2 bilaterally. Bilateral SI joints without tenderness on exam. NEUROLOGIC: He is alert and oriented x3, appropriate, cranial nerves 2 through 12 intact, no clonus, negative Babinski. IMAGING DATA: As noted in HPI. ASSESSMENT AND PLAN: 1. Intractable back pain secondary to metastatic disease that is throughout the right lung, liver, and bones, stemming from the T11 and L3 spinal lesions noted on CT consistent with exam today. Planning to undergo radiation therapy next week with Radiation Oncology, however, unable to tolerate physical activity, therapy, or mobility secondary to his pain currently. Recommendation to continue his fentanyl 50 mcg Duragesic for the next 24 hours and add oral hydrocodone 10/325 mg tablet one to two p.o. q.4 to 6 for breakthrough pain, limiting his IV medications, including morphine and Toradol for transition to oral medications to facilitate discharge. Also plan to increase his neuropathic medication, gabapentin to 300 mg tablet p.o. t.i.d. Upon re-evaluation in 24 hours, we will consider increasing to fentanyl 75 mcg if added oral hydrocodone is not effective for breakthrough pain. Hopeful radiation therapy will improve pain in combination with oral medications. Likely not a candidate for lumbar or thoracic interventional pain procedures. 2. Right rib pain. It is secondary to his metastatic bone disease, planning to undergo radiation therapy at this location as well. Consider possible intercostal blocks with Dr. Ramos if pain persist following radiation therapy and oral medications management. 3. Opioid-induced constipation. Encouraged hydration, add Movantik 25 mg one p.o. daily. Continue MiraLax and titrate to bowel movement. 4. Metastatic disease to bone, liver, and lung, unknown primary. Job ID: [id number]
--- NOTE | 2018-10-22 00:06 | PRG ---
DATE OF SERVICE: 10/21/2018 HISTORY OF PRESENT ILLNESS: The patient states he has not had a bowel movements since increasing narcotics for pain control. He is still having breakthrough pain with increasing Fentanyl and continuation of hydrocodone for breakthrough pain. States he may possibly have ablation therapy with Dr. Ramos's Team, may start radiation on Monday with Radiation Oncology. The patient's blood sugars have been increased with steroids. The patient is tolerating Lantus and sliding scale insulin. OBJECTIVE: VITAL SIGNS: Review of vital signs; temperature of 97.6, heart rate of 69, and blood pressure of 110/62. GENERAL: The patient is alert and oriented, in no acute distress. HEENT: Head is normocephalic and atraumatic. Extraocular movements are intact. Sclerae are white. NECK: Supple. HEART: Regular rate and rhythm. No murmurs auscultated. LUNGS: Clear to auscultation bilaterally. ABDOMEN: Protuberant, soft, mild left lower quadrant tenderness. No rebound or guarding. EXTREMITIES: Lower extremities without cyanosis or edema. ASSESSMENT AND PLAN: Metastatic sarcoma, diabetes type 2, constipation, intractable pain. Continue pain management and radiation/hematology/oncology services. Titrate Lantus on a 24-hour basis adjusting; currently at 20 units of Lantus. The patient has failed approximately 1 liter of GoLYTELY, MiraLax, and docusate sodium to relieve constipation, has flatus however. He is not having any emesis. We will handoff to Dr. Calin Seymour in the morning. Job ID: [id number] [facility]
--- NOTE | 2018-10-22 00:10 | PRG ---
DATE OF SERVICE: 10/21/2018 This is a hospital followup. SUBJECTIVE: Pain has improved with fentanyl 75 mcg Duragesic; however, the patient continues to require hydrocodone 10/325 mg tablet 2 tablets p.o. q.4 to 6 hours for breakthrough pain. He continues to deny any adverse reactions to the current medication regimen at this time. He was able to tolerate more mobility today as well as improved independent transfers and toileting due to improved pain relief. Mr. Leone still reports sharp, stabbing pain at the right costal margin with certain movements and activity. The pain accelerates to 10/10 with activity at times, returns to a dull, achy 2/3 over 10 at rest, almost 0/10 pain with no movement or activity at all. The patient still reports no bowel movement, he has been up to the toilet several times today, however, no results. He is currently working on a bowel prep now for bowel movement. Family is at the bedside, visiting with the patient. REVIEW OF SYSTEMS: Negative except for above in subjective. PHYSICAL EXAMINATION: VITAL SIGNS: Stable with blood pressure of 166/88, heart rate 71, respirations 16, he is 97% on room air. GENERAL: He is resting in bed, no apparent distress, visiting with his family. He does appear to be comfortable and appropriate. Does have occasional discomfort when repositioning in the bed with physical exam. HEENT: He is normocephalic and atraumatic. CARDIOVASCULAR: Regular rate and rhythm, no peripheral edema appreciated in extremities. LUNGS: No distress or labored breathing. ABDOMEN: Soft and is nontender. MUSCULOSKELETAL: Cervical range of motion remains full with bilateral upper extremity strength 5/5. He has no cervical vertebral spine tenderness or paraspinal musculature spasm noted. He does have moderate to severe localized tenderness on the right intercostal margin with palpation in the right 9th to 11th rib region. Thoracic spine, he has only mild tenderness with palpation in the T11 region, no deformity appreciated, his thoracic range of motion is full. Lumbar spine, no vertebral tenderness with palpation. Bilateral lower extremity strength remains 5/5 with negative bilateral straight leg raise. Bilateral dorsiflexion and plantar flexion remain 5/5. Bilateral SI joints without tenderness on exam. NEUROLOGIC: The patient remains alert and oriented x3, with no clonus. ASSESSMENT AND PLAN: 1. Chronic pain secondary to metastatic disease, sarcoma. Plan to continue fentanyl 75 mcg Duragesic and hydrocodone for breakthrough pain at this time. We will add tizanidine 4 mg tablet one p.o. q.6 to 8 hours as needed for reported spasm like pain to the right rib region with activity. Continue neuropathic medication. If the patient continues to require max dose of hydrocodone in the next 12 hours for breakthrough pain with fentanyl 75 mcg, we will discuss intercostal interventional block in the morning to assist with pain control with combination of current medication regimen. 2. Opioid-induced constipation. Continue current medications for opioid-induced constipation including Movantik 25 mg tablet daily. The patient is current working with bowel prep solution for results of bowel movement, per primary care. Job ID: [id number]
[2018-10-22] MEDS: Morphine 4 MG/ML VIAL SLOW IVP PRN ×3 (01:07→16:35)
[2018-10-22] MEDS: HYDROcodone/Acetaminophen 10/325 mg Tablet PO PRN ×5 (02:10→20:35)
[2018-10-22] MEDS: tiZANidine HCl 4 MG TAB PO PRN ×2 (02:48→20:36)
[2018-10-22] MEDS: Enoxaparin Sodium 40 MG/0.4 ML SYRINGE SC SCH (08:31)
[2018-10-22] MEDS: Lidocaine 5% Patch TD SCH (08:31)
[2018-10-22] MEDS: Docusate 100 MG CAP PO SCH ×2 (08:32→20:36)
[2018-10-22] MEDS: Metoprolol Tartrate 25 MG TAB PO SCH ×2 (08:32→20:35)
[2018-10-22] MEDS: Gabapentin 300 MG CAP PO SCH ×3 (08:32→20:36)
[2018-10-22] MEDS: Insulin Glargine 20 UNITS in Pre-Filled Syringe 1 EACH SC SCH (08:32)
[2018-10-22] MEDS: Dexamethasone 4 MG TAB PO SCH ×2 (08:32→20:36)
[2018-10-22] MEDS: Lisinopril/Hydrochlorothiazide 20/25 mg Tablet PO SCH (08:34)
[2018-10-22] MEDS: Insulin Regular 300 UNITS/3 ML VIAL SC PRN (14:02)
--- NOTE | 2018-10-22 14:04 | CON ---
DATE OF CONSULTATION: 10/22/2018 SUBJECTIVE: The patient's back pain has improved since he was admitted. He is still in moderate pain; however, he is more ambulatory. He is under relative control with his fentanyl 75 patch q.3 days, Neurontin 300 t.i.d., and morphine. OBJECTIVE: VITAL SIGNS: Temperature 97.6, pulse 69, respiration 16, blood pressure 110/62. HEART: Regular rate and rhythm. LUNGS: Clear. ABDOMEN: Soft, nontender. ASSESSMENT: 1. Chronic back pain secondary to T11 and L3 spinal lesion, improving. 2. Postop status post T9 rib biopsy. 3. Liver, lung, and bone lesions. 4. Constipation, resolved this morning with a large bowel movement after 1 liter of [place]. 5. Hypertension. 6. Hyperlipidemia. 7. Diabetes exacerbations due to Decadron, presently on Lantus. PLAN: 1. Consult case management for financial assistance. 2. Schedule today for radiation evaluation by Dr. Lu. 3. Continue fentanyl, Neurontin, and morphine. 4. Continue to titrate Lantus for blood sugar control. 5. Discharge planning. Job ID: [id number]
[2018-10-22] MEDS: Amlodipine 5 MG TAB PO SCH (20:35)
[2018-10-22] MEDS: Lidocaine Patch Removal 1 EACH TOP SCH (20:37)
[2018-10-23] MEDS: HYDROcodone/Acetaminophen 10/325 mg Tablet PO PRN ×5 (02:32→19:13)
[2018-10-23] MEDS: Morphine 4 MG/ML VIAL SLOW IVP PRN (06:54)
--- NOTE | 2018-10-23 07:55 | CON ---
DATE OF CONSULTATION: 10/18/2018 HISTORY OF PRESENT ILLNESS: Mr. Leone is a 63-year-old male, who was admitted for severe intractable back pain, but upon CT examination of the abdomen and pelvis, he was found to have what appears to be multiple metastatic lesions, one centered around the right transverse process of L3 and then to a lesser extent at T11. Biopsies were taken of these tissues and results are pending at this point. From a neurosurgical perspective, no surgical recommendation is advised as he does not have any neurologic deficits, he has full strength in the bilateral lower extremities, but does have significant back pain upon sitting, which has limited his mobility to a point where he has been bed-bound, essentially since his admission. Dr. Seymour has started him on gabapentin as of today, our recommendation would be to add Decadron and then defer to Oncology and Pain Management for treatment going forward. If he does develop neurologic re-consultation. Job ID: [id number]
[2018-10-23] MEDS: Metoprolol Tartrate 25 MG TAB PO SCH ×2 (08:07→20:38)
[2018-10-23] MEDS: Docusate 100 MG CAP PO SCH ×2 (08:07→20:39)
[2018-10-23] MEDS: Insulin Glargine 20 UNITS in Pre-Filled Syringe 1 EACH SC SCH ×2 (08:07→08:08)
[2018-10-23] MEDS: Gabapentin 300 MG CAP PO SCH ×3 (08:07→20:38)
[2018-10-23] MEDS: Lisinopril/Hydrochlorothiazide 20/25 mg Tablet PO SCH (08:07)
[2018-10-23] MEDS: Dexamethasone 4 MG TAB PO SCH ×2 (08:07→20:39)
[2018-10-23] MEDS: Lidocaine 5% Patch TD SCH (08:08)
[2018-10-23] MEDS: Enoxaparin Sodium 40 MG/0.4 ML SYRINGE SC SCH (08:08)
[2018-10-23] MEDS: Insulin Regular 300 UNITS/3 ML VIAL SC PRN (11:23)
[2018-10-23] MEDS: fentaNYL 75 mcg/hour Patch TD SCH (13:33)
--- NOTE | 2018-10-23 13:40 | PRG ---
DATE OF SERVICE: FOLLOWUP NOTE SUBJECTIVE: The patient is doing better on 75 mcg Duragesic patch, hydrocodone for breakthrough, and gabapentin 300 t.i.d. He will start a Lidoderm patch today. Still frustrated by his persistent pain, but it has improved. It is in the right posterior chest wall primarily, and this would correspond with the lesion noted there on CT. He has been to see Dr. Lu and pending beginning radiation therapy. Significant opioid-induced constipation appears to be improving with Movantik. PHYSICAL EXAMINATION: GENERAL: The patient is alert and oriented and pleasant, non-somnolent. He is in no distress. MUSCULOSKELETAL: Right posterior chest wall palpable tenderness. NEUROLOGIC: No neurologic deficits. IMPRESSION: Metastatic disease, right posterior chest wall, multiple sites. This is the most painful area. We can perform intercostal ablations using radiofrequency. The patient is beginning radiation therapy, and we will see if this is efficacious before considering ablation. I have discussed with Dr. Lu. We will manage his medications and hold on any interventional techniques until radiation therapy can be assessed for efficacy. Job ID: [id number]
[2018-10-23] MEDS: tiZANidine HCl 4 MG TAB PO PRN ×2 (14:33→22:48)
[2018-10-23] MEDS: Morphine 10 MG/ML VIAL SLOW IVP PRN ×2 (16:09→22:47)
--- NOTE | 2018-10-23 16:10 | PRG ---
DATE OF SERVICE: 10/23/2018 SUBJECTIVE: The patient's pain appears to be under relative control. He is somewhat more active. He is presently receiving the fentanyl patch as well as Neurontin and IV morphine. OBJECTIVE: VITAL SIGNS: Temperature 97.6, pulse 65, pulse ox 97, respirations 16, and blood pressure 158/72. HEART: Regular rate and rhythm. LUNGS: Clear. ABDOMEN: Soft. EXTREMITIES: No edema. LABORATORY DATA: Blood sugar 212, 175, and 179. Final pathology report pending [facility] review. ASSESSMENT: 1. Chronic back pain secondary to T11 and L3 spinal lesion, improving. 2. Postop status post T9 rib biopsy. 3. Liver, lung, and bone lesions with preliminary diagnosis of sarcoma or sarcoma type lesion. 4. Constipation, stable. 5. Hypertension. 6. Hyperlipidemia. 7. Diabetes exacerbated due to Decadron. PLAN: 1. I had a long conversation with the patient and with Dr. Elkins present. 2. Today, the patient will receive radiation for a possible 10-day round. 3. Continue fentanyl, Neurontin, and morphine. 4. Consider tapering off Decadron. 5. We will continue to follow blood sugars. 6. Hopefully can discharge home tomorrow. Job ID: [id number]
[2018-10-23] MEDS: Amlodipine 5 MG TAB PO SCH (20:38)
[2018-10-23] MEDS: Lidocaine Patch Removal 1 EACH TOP SCH (21:11)
[2018-10-24] MEDS: HYDROcodone/Acetaminophen 10/325 mg Tablet PO PRN ×3 (00:04→09:49)
[2018-10-24] MEDS: Morphine 10 MG/ML VIAL SLOW IVP PRN (03:04)
[2018-10-24] MEDS: Lidocaine 5% Patch TD SCH (10:00)
[2018-10-24] MEDS: Dexamethasone 1 MG TAB PO SCH ×2 (10:00→16:05)
[2018-10-24] MEDS: Lisinopril/Hydrochlorothiazide 20/25 mg Tablet PO SCH (10:01)
[2018-10-24] MEDS: Gabapentin 300 MG CAP PO SCH ×3 (10:01→20:48)
[2018-10-24] MEDS: Metoprolol Tartrate 25 MG TAB PO SCH ×2 (10:01→20:48)
[2018-10-24] MEDS: Docusate 100 MG CAP PO SCH ×2 (10:01→20:48)
[2018-10-24] MEDS: Enoxaparin Sodium 40 MG/0.4 ML SYRINGE SC SCH (10:02)
[2018-10-24] MEDS: Insulin Glargine 20 UNITS in Pre-Filled Syringe 1 EACH SC SCH (10:03)
[2018-10-24] MEDS ORDERED: Morphine IR Tab 15 MG TAB PO PRN ×2 (10:44→16:36)
[2018-10-24] MEDS: Insulin Regular 300 UNITS/3 ML VIAL SC PRN ×2 (11:26→16:06)
--- NOTE | 2018-10-24 12:12 | PRG ---
DATE OF SERVICE: 10/24/2018 SUBJECTIVE: The patient is still in severe pain. Unable to ambulate. Very difficult for him to even go to radiation treatment. Requiring a bed transportation. Wheelchair is extremely painful. Yesterday, he received his first course of radiation. Second round is scheduled for this afternoon. OBJECTIVE: VITAL SIGNS: Temperature 97.4, pulse 70, respirations 18, pulse ox 96, and blood pressure 107/67. HEART: Regular rate and rhythm. LUNGS: Clear. ABDOMEN: Soft. ASSESSMENT: 1. Intractable back pain secondary to T11 and L3 spinal lesion. 2. Postop status post T9 rib biopsy. 3. 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 4. Constipation, waxing and waning. 5. Hypertension. 6. Hyperlipidemia. 7. Diabetes. PLAN: 1. Wean off Decadron. Decrease to 2 mg b.i.d. 2. Round 2 of radiation today. 3. Change IV morphine to p.o. morphine today if okay with Dr. Ramos. 4. The plan for today is that if we are able to arrange outpatient transportation to radiation, we will plan to discharge today. Otherwise, the patient will tentatively be discharged home tomorrow. Family unable to manage him physically. Job ID: [id number]
[2018-10-24] MEDS: tiZANidine HCl 4 MG TAB PO PRN (14:48)
[2018-10-24] MEDS: Morphine IR Tab 15 MG TAB PO PRN ×4 (14:52→23:04)
[2018-10-24] MEDS: Morphine 4 MG/ML VIAL SLOW IVP PRN (17:24)
[2018-10-24] MEDS: Lidocaine Patch Removal 1 EACH TOP SCH (20:48)
[2018-10-25] MEDS: Morphine IR Tab 15 MG TAB PO PRN ×5 (03:28→20:46)
[2018-10-25] MEDS: tiZANidine HCl 4 MG TAB PO PRN ×2 (07:09→15:11)
[2018-10-25] MEDS: Metoprolol Tartrate 25 MG TAB PO SCH ×2 (10:05→20:55)
[2018-10-25] MEDS: Gabapentin 300 MG CAP PO SCH ×3 (10:05→20:46)
[2018-10-25] MEDS: Docusate 100 MG CAP PO SCH ×2 (10:05→20:46)
[2018-10-25] MEDS: Insulin Glargine 20 UNITS in Pre-Filled Syringe 1 EACH SC SCH (10:06)
[2018-10-25] MEDS: Dexamethasone 1 MG TAB PO SCH ×2 (10:06→16:55)
[2018-10-25] MEDS: Lidocaine 5% Patch TD SCH (10:06)
[2018-10-25] MEDS: Lisinopril/Hydrochlorothiazide 20/25 mg Tablet PO SCH (10:06)
[2018-10-25] MEDS: Enoxaparin Sodium 40 MG/0.4 ML SYRINGE SC SCH (10:06)
[2018-10-25] MEDS: Insulin Regular 300 UNITS/3 ML VIAL SC PRN ×2 (12:07→16:55)
[2018-10-25] MEDS ORDERED: Morphine IR Tab 15 MG TAB PO PRN (13:49)
--- NOTE | 2018-10-25 15:47 | DIS ---
DATE OF ADMISSION: 10/17/2018 DATE OF DISCHARGE: 10/25/2018 DISCHARGE DIAGNOSES: 1. Intractable back pain secondary to T11 and L3 spinal lesions. 2. Non-ambulatory secondary to #1. 3. Status post T9 rib biopsy. 4. 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 5. Constipation, waxes and wanes. 6. Hypertension. 7. Hyperlipidemia. 8. Diabetes. FOLLOWUP: 1. Follow up Dr. Calin Seymour. 2. Follow up Dr. Elkins. 3. Follow up Dr. Ramos. DISCHARGE MEDICATIONS: 1. Fentanyl 75 q.3 days, #7. 2. Morphine IR 30 mg one p.o. q.4 p.r.n., #60. 3. Neurontin 300 t.i.d., #90. 4. Lidoderm 5% patch, #21, everyday. 5. Lisinopril-hydrochlorothiazide 20-25 q.a.m. 6. Metoprolol 25 p.o. b.i.d. 7. Movantik 25 daily, #30. 8. Tizanidine 4 mg t.i.d. p.r.n., #60. 9. Metformin 1000 one p.o. b.i.d. 10. Colace 100 p.o. b.i.d., #60. BRIEF HISTORY: This is a 63-year-old white male, who presents with intractable back pain. The patient was first seen on September 25 with a 5-week history of back pain. 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 He was given pain medications and muscle relaxers at that time; however, he continued to have back pain. He was again seen on October 10, and a renal ultrasound and chest x-ray were ordered. The renal ultrasound was unremarkable. The chest x-ray was pending. However, the pain continued to become increasingly worse. There was no nausea or vomiting. He had been on pain medications and was complaining of constipation. He has had no weight changes. His appetite has been normal. He then presented to the emergency room, where a CAT scan was ordered and where he was found to have soft tissue lesions and a L3 transverse process lesion as well as lung and liver lesions. He was admitted for further evaluation. Dr. Reyes, Dr. Oneill, Dr. Varner, and Dr. Raghav Nguyen were all consulted, and it was decided to do a biopsy. Radiology was consulted to do a T9 rib biopsy. A chest CT revealed multiple pulmonary metastatic lesions in the right lung as well as multiple bone lesions as well as a liver lesion. A 4.2 cm mass was noted in the right posterior ninth rib. A 3 cm mass was noted on the anterior fourth rib on the right. A destructive lesion was noted on the left measuring 6 cm in size involving the second rib. There was a 3.2 cm in the left lobe of the liver. A bone scan was obtained, which revealed multiple areas of abnormal uptake in the ribs surrounding shoulders. Abdominal and pelvic CT showed the right ninth rib lesion as well as the T11 destructive lytic lesion of the vertebral body. There were also a right-sided L3 lesion and a right pelvic lesion. Dr. Lu was consulted and the patient thus far has received 2 rounds of radiation treatment. He will receive his third round today. The plan is to receive a total of [address] Ramos has initiated pain medications to include Neurontin, Lidoderm, morphine IR tabs as well as fentanyl. The patient's pathology revealed a possible sarcoma-type lesion. The definitive diagnosis is pending. The slides have been sent to the [facility] and should be back within another week. In the meantime, the patient will continue to receive radiation treatment. A family meeting is scheduled for Monday at 11 a.[address] to talk with Dr. Elkins and discuss a course of action. Throughout the hospital stay, many discussions were made between the patient, the , the two daughters and [id number]. We will continue to follow. ADDENDUM: The patient will be transported home this evening after radiation treatment. A wheelchair, bathtub bench, and a toilet chair have all been ordered for the patient. The patient is not able to ambulate at all. The patient will need wheelchair assistance in the home as well as to all activities. The patient is unable to ambulate due to the intractable pain and lesions involving his spine. For the time being, the patient will be wheelchair-bound. Job ID: [id number]
[2018-10-25] MEDS: Morphine 4 MG/ML VIAL SLOW IVP PRN (16:44)
[2018-10-25] MEDS: Lidocaine Patch Removal 1 EACH TOP SCH (20:54)
[2018-10-26] MEDS: Morphine IR Tab 15 MG TAB PO PRN ×4 (00:44→13:34)
[2018-10-26 04:58] VITALS: TEMP 97.8
[2018-10-26 09:07] VITALS: BP 134/77
[2018-10-26] MEDS: Enoxaparin Sodium 40 MG/0.4 ML SYRINGE SC SCH (09:13)
[2018-10-26] MEDS: Lidocaine 5% Patch TD SCH (09:13)
[2018-10-26] MEDS: Dexamethasone 1 MG TAB PO SCH (09:14)
[2018-10-26] MEDS: Lisinopril/Hydrochlorothiazide 20/25 mg Tablet PO SCH (09:16)
[2018-10-26] MEDS: Docusate 100 MG CAP PO SCH (09:16)
[2018-10-26] MEDS: Insulin Glargine 20 UNITS in Pre-Filled Syringe 1 EACH SC SCH (09:16)
[2018-10-26] MEDS: Gabapentin 300 MG CAP PO SCH (09:16)
[2018-10-26] MEDS: Metoprolol Tartrate 25 MG TAB PO SCH (09:23)
[2018-10-26] MEDS: fentaNYL 75 mcg/hour Patch TD SCH (13:36)
== END 2018-10-26 14:53 | disposition home or self-care (01) | DRG 478 ==
LOC: ERS 21:36 → ERHOLD 23:27 → ONC 10-15 14:04 → OBSVTOIN 10-17 18:24
PROVIDERS: ADMIT Family Medicine; ATTEND Family Medicine
PROC: 0PB13ZX Excision of 1 to 2 Ribs, Percutaneous Approach, Diagnostic (ICD-10-PCS; principal; 2018-10-16)
PROC: 0DB68ZX Excision of Stomach, Via Natural or Artificial Opening Endoscopic, Diagnostic (ICD-10-PCS; 2018-10-17)
PROC: 0DBP8ZZ Excision of Rectum, Via Natural or Artificial Opening Endoscopic (ICD-10-PCS; 2018-10-17)
DX: C79.51 Secondary malignant neoplasm of bone (principal); C78.7 Secondary malignant neoplasm of liver and intrahepatic bile duct; C78.00 Secondary malignant neoplasm of unspecified lung; K22.10 Ulcer of esophagus without bleeding; I10 Essential (primary) hypertension; E78.5 Hyperlipidemia, unspecified; E11.9 Type 2 diabetes mellitus without complications; K59.03 Drug induced constipation; T40.2X5A Adverse effect of other opioids, initial encounter; K57.30 Diverticulosis of large intestine without perforation or abscess without bleeding; K62.1 Rectal polyp
CPT/HCPCS: 36415; 36416; 71045; 71260; 74177; 76999; 77014; 77290; 77334; 77412; 77417; 78306; 80048; 80053; 82105; 82378; 83690; 85025; 85610; 85730; 86140; 86301; 88305; 88312; 88333; 88334; 88341; 88342; 96374; 96375; 96376; A9503; G8978-GP-CK; G8979-GP-CI; J1100; J1650; J1815; J1885; J2001; J2270; J2405; J2704; J3480; J8540

== ENCOUNTER 2018-11-21 16:13 | Outpatient (CLI) | payer MEDICARE, OTHER ==
[~2018-11-21 16:13] MED LIST: Gadobenate Dimeglumine 529 MG/1 ML (20ML VIAL) ONE
--- NOTE | 2018-11-22 09:09 | MRI ---
MRI BRAIN WITH AND WITHOUT CONTRAST: Technique: Multiplanar, multisequence MRI images were obtained of the brain. Indications: Malignancy neoplasm of lung with metastasis. FINDINGS: The ventricles have normal size and position. No evidence of restricted diffusion. There is no eviden ce of mass or edema. No white matter abnormality. No abnormal enhancement. Cerebral arteries show exp ected flow voids. Calvarium unremarkable. IMPRESSION: No evidence of metastatic lesion. No other acute process. POS: [facility]
== END 2018-11-21 16:14 | disposition home or self-care (01) ==
LOC: MRI 16:13
PROVIDERS: ATTEND Internal Medicine Hematology & Oncology
DX: C34.90 Malignant neoplasm of unspecified part of unspecified bronchus or lung (principal); C79.51 Secondary malignant neoplasm of bone
CPT/HCPCS: 70553; A9579

== ENCOUNTER 2018-11-22 09:47 | Outpatient (CLI) | payer MEDICARE, OTHER ==
--- NOTE | 2018-11-22 15:24 | PET ---
PET CT FROM SKULL BASE TO MID THIGH: INDICATION: History of lung cancer with metastatic disease to the bone. RADIOPHARMACEUTICAL: 12.3 mCi F18-FDG IV. TECHNIQUE: PET CT from the skull to mid thighs were obtained following the intravenous administration of the rad iopharmaceutical. CT images were obtained for attenuation correction purposes only. Comparison made with CT evaluation dated 10/15/08 of the chest and of the abdomen/pelvis on 10/17/08. FINDINGS: The biodistribution for the examination appears acceptable. There is some muscular activity seen invo lving the right upper extremity which may be related to muscular contraction. Head/Neck: No hypermetabolic head/neck soft tissue mass or lymphadenopathy is grossly evident. Thorax: There is a mildly hypermetabolic right lower lobe pulmonary nodule with a peak SUV value of 3.21 and a mean activity of 2.56. The lesion measures approximately 2.8 cm and is slightly larger in size than seen on the comparison CT of 10/15/18. There is an additional 1.0 cm pulmonary nodule within the rig ht lower lobe with no associated hypermetabolic uptake. There is an additional subcentimeter pulmonar y nodule within the right lower lobe on axial CT image 112 with no associated activity. Additional chavez bcentimeter pulmonary nodule within the right lower lobe is seen on image 112. A small subcentimeter pulmonary nodule is seen within the right upper lobe which is sub-4.0 mm in size. There is some subse gmental volume loss involving both lung bases. There are calcified lymph nodes within the mediastinum and hilar regions. Abdomen/Pelvis: There is a 5.8 cm hypodense mildly hypermetabolic mass within the liver. There is a cirrhotic morphol ogy to the liver. The peak SUV activity associated with the liver lesion is 3.77 with a mean activity of 3.3. The background activity within the liver has a maximum SUV uptake of 2.11. There is some enteric and renal collecting system activity seen within the background. No hypermetabo lic lymphadenopathy or ascites is evident. Background activity is seen within the level of the bladde r. There is a fat-containing right inguinal hernia. Skin/Osseous Structures: There are numerous scattered osteolytic hypermetabolic lesions involving the skeletal structures. Ind ex lesion within the right iliac wing is best seen on axial CT image 224 with a mean uptake of 4.25 a nd peak uptake of 5.39. There is a prominent destructive lytic lesion involving the right L3 pedicle extending into the transverse process and right aspect of the vertebral body with a peak SUV uptake o f 5.53 and mean uptake of 5.0. There is a prominent destructive pathologic fracture involving T11 wit h moderate loss of height of the T11 vertebral body with peak uptake of 4.29 and mean uptake of 3.39. There are numerous expansile lytic lesions involving the ribs bilaterally. Index lesion involving th e right fourth rib has a mean uptake of 3.62 and peak uptake of 5.39. There are also lytic lesions in volving the proximal left humerus, as well as the left pubic root. There is also some mild background activity seen at the level of the sternal body which may reflect a small amount of background metast atic disease. IMPRESSION: Abnormal PET scan: 1. There is a cirrhotic morphology to the liver with a mildly hypermetabolic large hypodense mass wi thin the left hepatic lobe measuring up to 5.8 cm with a peak SUV of 3.77. Findings may be related to metastatic disease; however, a primary hepatic malignancy, especially with high grade HCC, is known to have increased FDG uptake beyond the level of the background liver. The background liver activity had a peak activity of 2.11. Consideration for ultrasound guided or CT biopsy may be helpful. 2. Many of the pulmonary nodules within the right lower lobe demonstrate no associated hypermetaboli c activity. The largest within the right lower lobe measuring up to 2.8 cm does demonstrate some mild associated hypermetabolic activity up to 3.21. Overall findings are suspicious for pulmonary metasta tic disease. 3. Numerous osteolytic mildly hypermetabolic lesions seen scattered through the axial and appendicul ar skeleton consistent with osseous metastatic disease. There is a pathologic compression fracture of T11 and prominent abnormality involving the right pedicle at L3. There are numerous bilateral rib le sions which are expansile with associated hypermetabolic activity. There is a prominent lytic lesion involving the proximal metaphysis of the left proximal humerus whic h may predispose this patient to pathologic fracture of the left upper extremity. Would recommend con sideration for orthopedic consultation for this lesion itself, as well as the neurosurgical consultat ion for a T11 spinal lesion. CODE T. POS: [facility]
== END 2018-11-22 09:48 | disposition home or self-care (01) ==
LOC: PET 09:47
PROVIDERS: ATTEND Internal Medicine Hematology & Oncology
DX: C34.90 Malignant neoplasm of unspecified part of unspecified bronchus or lung (principal); C79.51 Secondary malignant neoplasm of bone; R16.0 Hepatomegaly, not elsewhere classified; R91.8 Other nonspecific abnormal finding of lung field; K74.60 Unspecified cirrhosis of liver; M89.9 Disorder of bone, unspecified; M48.54XA Collapsed vertebra, not elsewhere classified, thoracic region, initial encounter for fracture; R94.8 Abnormal results of function studies of other organs and systems; R93.7 Abnormal findings on diagnostic imaging of other parts of musculoskeletal system
CPT/HCPCS: 78815; A9552

== ENCOUNTER 2018-11-26 15:53 | Outpatient (CLI) | payer MEDICARE, OTHER ==
--- NOTE | 2018-11-26 16:45 | RAD ---
LEFT SHOULDER TWO VIEWS WITH INTERNALLY ROTATED AND SCAPULAR Y VIEWS PROVIDED: FINDINGS: As noted on the PET CT examination on 11/22/2018, there is a lytic lesion seen within the proximal le ft humeral metadiaphysis, which extends into the humeral head and neck junction. This measures appro ximately 5.1 cm in maximal dimensions. There is also increased density seen overlying the left lung apex, which appears to be associated wit h the posterolateral left 2nd rib, and there is also evidence of a lytic lesion and soft tissue mass in this region on PET CT exam. No additional lytic lesion is seen on limited views of the left shoul keny. IMPRESSION: Osseous metastatic disease with a large lytic lesion in the proximal left humerus, as well as a lesio n involving the left posterolateral 2nd rib. POS: [facility]
--- NOTE | 2018-11-27 09:08 | RAD ---
LEFT HUMERUS 2 VIEWS:: Date: 11/26/18 HISTORY: Secondary malignant neoplasm of the bone. COMPARISON: None. CORRELATION: Left shoulder radiograph series dated 11/26/18 at 1607 hours. FINDINGS: There is a lytic lesion involving the proximal medial neck and head of the left humerus. Bone destruc tion is suspected. Lesion is worrisome for a potential pathologic fracture. IMPRESSION: Redemonstration of a lytic lesion involving the proximal left humerus. POS: [facility]
== END 2018-11-26 15:54 | disposition home or self-care (01) ==
LOC: BICRAD 15:53
PROVIDERS: ATTEND Internal Medicine Hematology & Oncology
DX: M25.512 Pain in left shoulder (principal); C79.51 Secondary malignant neoplasm of bone; C34.90 Malignant neoplasm of unspecified part of unspecified bronchus or lung; M89.9 Disorder of bone, unspecified

== ENCOUNTER 2018-11-28 11:29 | Outpatient (CLI) | payer MEDICARE, OTHER ==
--- NOTE | 2018-11-30 20:49 | EKG ---
Test Reason : Blood Pressure : / mmHG Vent. Rate : 112 BPM Atrial Rate : 112 BPM P-R Int : 132 ms QRS Dur : 090 ms QT Int : 334 ms P-R-T Axes : -02 125 032 degrees QTc Int : 455 ms Poor data quality, interpretation may be adversely affected Sinus tachycardia Left posterior fascicular block Cannot rule out Anterior infarct , age undetermined Abnormal ECG No previous ECGs available Confirmed by Jairo HUNTER ([id number]) on 11/30/2018 8:49:14 PM Referred By: DEANGELO Confirmed By:Jairo HUNTER
== END 2018-11-28 11:30 | disposition home or self-care (01) ==
LOC: LABBT 11:29
PROVIDERS: ATTEND Specialist
DX: Z01.818 Encounter for other preprocedural examination (principal)
CPT/HCPCS: 93005; 93010

== ENCOUNTER 2018-11-30 10:32 | Day surgery (SDC) | payer MEDICARE, OTHER ==
[2018-11-28 11:34] VITALS: BMI 26.0
[2018-11-30] MEDS ORDERED: CEFAZOLIN 2 GM/50 ML BAG ONE (11:10)
[2018-11-30] MEDS ORDERED: Ketorolac Tromethamine 30 MG/ML VIAL ONE (11:10)
[2018-11-30 11:19] LABS: #Basophils 0.1 thou/uL (0.0-0.2); #Eosinphils 0.1 thou/uL (0.0-0.7); #Lymphocytes 1.9 thou/uL (1.20-3.40); #Monocytes 0.8 thou/uL (0.11-0.59); #Neutrophils 5.8 thou/uL (1.40-6.50); %Basophils 0.7 % (0.0-1.0); %Eosinophils 1.5 % (0.0-10.0); %Lymphocytes 22.1 % (21.0-51.0); %Monocytes 8.9 % (0.0-10.0); %Neutrophils 66.8 % (42.0-75.0); Hemoglobin 13.1 g/dL (14.0-18.0); Mean Corpuscular HGB CONC 34.2 g/dL (32.0-36.0); Mean Corpuscular Hemoglobin 32.4 pg (27.0-31.0); Mean Corpuscular Volume 94.7 fL (78.0-98.0); Mean Platelet Volume 6.7 fL (7.4-10.4); Platelet Count 210 thou/uL (130-400); RBC Distribution Width 14.6 % (11.5-14.5); Red Blood Cell (RBC) Count 4.06 mill/uL (4.70-6.10); White Blood Cell (WBC) Count 8.7 thou/uL (4.8-10.8)
[2018-11-30 11:41] LABS: Anion Gap 14 mmol/L (10-20); BUN (Urea Nitrogen) 10 mg/dL (8.4-25.7); Calc. Creatinine Clearance 188 mL/min (70-130); Calcium 8.9 mg/dL (7.8-10.44); Carbon Dioxide 24 mmol/L (23-31); Chloride 103 mmol/L (98-107); Estimated GFR-MDRD Greater than 90; Glucose 117 mg/dL (80-115); Sodium 137 mmol/L (136-145)
[2018-11-30] MEDS ORDERED: Lidocaine 1% (PF) 30 ML VIAL ONE (12:50)
[2018-11-30] MEDS ORDERED: Bupivacaine/Epinephrine 0.25% 30 ML VIAL ONE (12:50)
[2018-11-30] MEDS ORDERED: Heparin 5,000 UNITS/ML VIAL ONE (12:50)
[2018-11-30] MEDS ORDERED: Midazolam HCl 2 mg/2 ml Vial ONE (12:54)
[2018-11-30] MEDS ORDERED: Fentanyl 100 MCG/2 ML VIAL ONE (12:54)
[2018-11-30] MEDS ORDERED: Propofol 500 MG/50 ML VIAL ONE (12:55)
[2018-11-30] MEDS ORDERED: KETAMINE 100 MG/ML (5ML VIAL) ONE (12:55)
[2018-11-30] MEDS ORDERED: PHENYLEPHRINE-NS 100 MCG/ML 10 ML SYRINGE ONE ×2 (13:43→16:12)
--- NOTE | 2018-11-30 15:41 | RAD ---
FRONTAL VIEW CHEST: 11/30/18 COMPARISON: 10/16/18 INDICATION: Mediport placement. FINDINGS: There is a left venous chest port with tip overlying the SVC region. No postprocedure pneumothorax. There is prominence of the cardiac silhouette and pulmonary vasculature. No effusion. IMPRESSION: 1. Left chest port without postprocedural pneumothorax. 2. Prominent bilateral perihilar vasculature which may relate to venous engorgement. POS: [facility]
[2018-11-30] MEDS ORDERED: PROPOFOL 200 MG/20 ML VIAL ONE (16:12)
--- NOTE | 2018-12-01 17:24 | OP ---
DATE OF PROCEDURE: 11/30/2018 PREOPERATIVE DIAGNOSIS: Metastatic sarcoma, etiology uncertain. POSTOPERATIVE DIAGNOSIS: Metastatic sarcoma, etiology uncertain. PROCEDURE PERFORMED: Placement of a left subclavian standard-sized power compatible MediPort. ANESTHESIA: Total intravenous anesthesia with local using 0.25% Marcaine with epinephrine. INDICATIONS: The patient is a 63-year-old white male. He requires chemotherapy and treatment of his newly diagnosed cancer. MediPort is placed for this purpose. DESCRIPTION OF PROCEDURE: Informed consent was obtained. The patient was taken to the operating room where total intravenous anesthesia was obtained with the patient in supine position. Left periclavicular area was prepped with ChloraPrep and draped in sterile fashion. Local anesthetic was infiltrated and a large-gauge needle was passed under the clavicle in the subclavian vein. Guidewire was passed through the needle and fluoroscopically confirmed to enter the superior vena cava. Additional local anesthetic was infiltrated and transverse incision was created based on needle insertion site. A subcutaneous pocket was dissected inferiorly. Introducer dilator was passed over the guidewire under fluoroscopic guidance. The guidewire and dilator were removed, and the catheter was passed through the introducer. The tip of the catheter was positioned at the atriocaval junction and the catheter was trimmed to the appropriate length and secured to the locking hub of the MediPort. The port was then placed in the subcutaneous pocket where it was secured to the pectoral fascia with 2 interrupted sutures of 3-0 Prolene. The incision was then closed in layers with 3-0 and 4-0 Monocryl. Additional local anesthetic was infiltrated. The port was cannulated with a Pearce needle and it aspirated blood freely and was flushed with heparinized saline. Dermabond was placed externally on the skin incision. There were no complications and essentially no blood loss. The patient tolerated the procedure well and was taken to recovery room in stable condition. FINDINGS: A standard-sized power compatible MediPort was placed into his left subclavian vein. His anatomy was typical both externally and internally. Job ID: [id number]
== END 2018-11-30 15:10 | disposition home or self-care (01) ==
LOC: SDC 10:32
PROVIDERS: ATTEND Specialist
PROC: 02HV33Z Insertion of Infusion Device into Superior Vena Cava, Percutaneous Approach (ICD-10-PCS; principal; 2018-11-30)
DX: C79.89 Secondary malignant neoplasm of other specified sites (principal); C34.90 Malignant neoplasm of unspecified part of unspecified bronchus or lung; C79.51 Secondary malignant neoplasm of bone; I10 Essential (primary) hypertension; E78.5 Hyperlipidemia, unspecified; Z79.84 Long term (current) use of oral hypoglycemic drugs; Z79.891 Long term (current) use of opiate analgesic; Z79.899 Other long term (current) drug therapy
CPT/HCPCS: 36561; 71045; 80048; 85025; C1788; J0131; J1642; J1644; J1885; J2001; J2250; J2704; J3010

== ENCOUNTER 2019-01-10 08:18 | Outpatient (CLI) | payer MEDICARE, OTHER ==
--- NOTE | 2019-01-10 11:48 | PET ---
PET WITH CT SKULL TO MID THIGH: COMPARISON: 11/22/18. CLINICAL INDICATION: Lung cancer with history of bone metastasis. RADIOPHARMACEUTICAL: 11.9 mCi F18-FDG intermixed with 10 mL 0.9% sodium chloride. FINDINGS: Referencing the prior PET CT, 11/22/18, there has been significant interval improvement with regard t o osseous metastases. The prior multifocal hypermetabolic osseous lesions have essentially resolved w ith mild residual underlying metabolic activity seen. No new hypermetabolic lesions are present. Ther e has been interval decrease in volume of prior pulmonary nodules, with mild reticulonodular opacitie s remaining. The previously noted hypodense lesion of the left hepatic lobe has decreased in volume a nd there is no associated hypermetabolic activity visualized. The previously noted lytic lesion of th e proximal left humerus is redemonstrated. Pathologic compression of the T11 level is redemonstrated with interval resolution of prior hypermetabolic activity. IMPRESSION: Significant interval response to therapy, with significant interval improvement with regard to multip le prior hypermetabolic metastatic foci which involved the osseous structures, pulmonary parenchyma, and the liver. No new hypermetabolic lesions are present. POS: [facility]
== END 2019-01-10 08:19 | disposition home or self-care (01) ==
LOC: PET 08:18
PROVIDERS: ATTEND Internal Medicine Hematology & Oncology
DX: C34.90 Malignant neoplasm of unspecified part of unspecified bronchus or lung (principal); C79.51 Secondary malignant neoplasm of bone
CPT/HCPCS: 78815; A9552

== ENCOUNTER 2019-02-12 06:05 | Observation (INO) | payer MEDICARE, OTHER ==
[2019-02-11 12:28] VITALS: BMI 23.7
[2019-02-12] MEDS ORDERED: Fentanyl 100 MCG/2 ML VIAL ONE ×3 (06:43→09:34)
[2019-02-12] MEDS ORDERED: Midazolam HCl 2 mg/2 ml Vial ONE (06:43)
[2019-02-12] MEDS ORDERED: PROPOFOL 0 ML ONE (06:44)
[2019-02-12] MEDS ORDERED: Propofol 500 MG/50 ML VIAL ONE (06:44)
[2019-02-12] MEDS ORDERED: Sodium Chloride For Inhalation 0.9% 3 ML NEB ONE (06:45)
[2019-02-12] MEDS ORDERED: Bupivacaine/Epinephrine 0.25% 30 ML VIAL ONE (06:50)
[2019-02-12] MEDS ORDERED: Bupivacaine HCl 0.5%/Epinephrine 1:200,000/PF 30 ml Vial ONE (06:51)
[2019-02-12] MEDS ORDERED: Sodium Chloride 0.9% 100 ML ONE (07:11)
[2019-02-12] MEDS ORDERED: CEFAZOLIN 1 GM VIAL ONE (07:11)
[2019-02-12] MEDS ORDERED: Famotidine/PF 20 mg/2ml Vial ONE (07:20)
[2019-02-12] MEDS ORDERED: Ondansetron PF 4 MG/2 ML Vial ONE ×2 (07:21→13:14)
[2019-02-12] MEDS ORDERED: Ondansetron HCl/PF 4 MG/2 ML Vial IVP PRN ×2 (08:17→09:54)
[2019-02-12] MEDS ORDERED: MORPHINE ONE (08:41)
[2019-02-12] MEDS ORDERED: Meperidine HCl/PF 25 MG/ML VIAL SLOW IVP PRN (08:52)
[2019-02-12] MEDS ORDERED: HYDROmorphone 2 MG/ML VIAL ONE (09:42)
[2019-02-12] MEDS ORDERED: HYDROmorphone 2 MG/ML VIAL SLOW IVP PRN (09:54)
[2019-02-12] MEDS ORDERED: Non-Formulary Medication 1 EACH PO PRN (09:54)
[2019-02-12] MEDS ORDERED: Promethazine HCl 25 MG/ML VIAL IM/IV PRN (09:54)
--- NOTE | 2019-02-12 10:15 | RAD ---
F2 views lumbar spine: 02/12/2019 COMPARISON: None HISTORY: Catheter placement, internal pain pump FINDINGS: 2 frontal radiographs of the lumbar spine provided. A pain pump generator overlies the left lower quadrant laterally. There is a faint linear segment of catheter tubing between the pump and th e left lateral aspect of the lumbar spine at the L3-4 level. The associated catheter cannot be discretely visualized over the lumbar spine and thus location of di stal tip is uncertain. CT would be the study of choice to evaluate location of catheter. IMPRESSION: Suboptimal visualization of catheter associated with pain pump.
--- NOTE | 2019-02-12 10:17 | RAD ---
FFrontal radiograph thoracic spine: 02/12/2019 COMPARISON: None HISTORY: Check catheter placement FINDINGS: Frontal radiograph of the thoracic spine provided. Catheter tubing cannot be visualized on this exam. CT injectable Port-A-Cath present. There is lytic irregularity involving T11 vertebral bod y suggesting a lytic bone lesion on the basis of malignancy. Question lytic change involving the medi al aspect of right ninth rib. IMPRESSION: Catheter tubing cannot be visualized on this exam. CT suggested. Osseous lytic lesions chavez spicious for metastatic disease.
[2019-02-12] MEDS ORDERED: HYDROcodone/Acetaminophen 10/325 mg Tablet PO PRN ×2 (10:57)
[2019-02-12] MEDS ORDERED: Ondansetron PF 4 MG/2 ML Vial IVP PRN (10:58)
[2019-02-12] MEDS ORDERED: Tamsulosin HCl 0.4 MG CAP PO SCH (11:00)
[2019-02-12] MEDS ORDERED: Succinylcholine Chloride 20 MG/ML 10 ml SYRINGE FS ONE (13:14)
[2019-02-12] MEDS ORDERED: Dexamethasone 20 MG/5 ML VIAL ONE (13:14)
[2019-02-12] MEDS ORDERED: Lidocaine 1% PF 5 ML VIAL ONE (13:14)
[2019-02-12] MEDS ORDERED: PHENYLEPHRINE-NS 100 MCG/ML 10 ML SYRINGE ONE (13:14)
[2019-02-12] MEDS ORDERED: ePHEDrine 50 MG/ML VIAL ONE (13:14)
[2019-02-12] MEDS ORDERED: PROPOFOL 200 MG/20 ML VIAL ONE (13:14)
[2019-02-12] MEDS ORDERED: Metoclopramide HCl 10 MG/2 ML VIAL ONE (13:14)
--- NOTE | 2019-02-12 13:50 | OP ---
DATE OF PROCEDURE: 02/12/2019 PREOPERATIVE DIAGNOSIS: Sarcoma of spine. PROCEDURE PERFORMED: Implanting of an implantable programable intrathecal pain pump. INDICATIONS: A 63-year-old male, who has a sarcoma that is eroding into the spine with severe chronic pain. He had a trial that was successful. FINDINGS: It was placed in the left lower quadrant. DESCRIPTION OF PROCEDURE: After an informed consent was obtained, the patient was taken to the operating room. He was placed in the right lateral decubitus position. His flank, abdomen, and back were prepped and draped in usual fashion. Dr. Ramos performed the insertion of the intrathecal catheter. Once that was confirmed to be in place, a local anesthesia was infiltrated subcutaneously and deep. A transverse left lower quadrant abdominal incision was performed. Subcu divided sharply and a pocket was created on the fascia utilizing electrocautery to create an area for the pump. Hemostasis was achieved with electrocautery. Four 2-0 Prolene sutures were placed as anchors. The tunneling device was then used to connect the abdominal incision to the back incision. The catheter was threaded through the tunneler into the anterior incision. The CSF flow was confirmed. Then, approximately 1 inch or 3 cm of catheter was removed as the clamps had been placed on that distal portion of the catheter. This was recorded by the [employer] rep. The connecting catheter was connected to the intrathecal catheter and locked. Then, this was connected to the pain pump and locked. Again, CSF was confirmed through the pain pump itself. The pain pump had been primed and filled with the Duramorph. The catheter was rolled and held posteriorly as the pain pump was secured with the 4 sutures to the anterior abdominal wall in the pocket. Then, the subcu was reapproximated with interrupted 2-0 Vicryl. The skin was closed with a running subcuticular 4-0 Monocryl. Steri-Strips were applied. Sterile bandage applied. Then, the [employer] rep programed the pump. The patient tolerated the procedure well, transferred to Recovery in good condition. Sponge and needle count verified as correct x2. Job ID: [id number]
--- NOTE | 2019-02-12 15:32 | OP ---
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 PROCEDURES PERFORMED: 1. Implantation of programmable Medtronic drug delivery system by Dr. Claros. 2. Implantation of the indwelling intrathecal catheter for drug delivery by Dr. Ramos. SUMMARY: Risks and benefits have been discussed with the patient and family including but not limited to bleeding, infection, nerve damage, worsening of the pain, no relief of pain. He was taken to the OR, placed in the right lateral decubitus position, and positioned in place using a beam bag. Prior to positioning, adequate satisfactory general anesthesia was obtained. Standard prep and drape with Hibiclens using standard landmarks to L3-L4 interspace was easily identified. Incision was made over the spinous processes from L2 through L4. Blunt dissection using the Metzenbaum and Bovie for hemostasis, supplied Entefy. Subarachnoid needle was advanced using a paramedian approach at L3-L4, one pass, clear CSF. Catheter was then advanced under fluoroscopic guidance with the tip at T8. The needle and stylet were removed intact from the catheter. Catheter was noted to have clear CSF free flow. The remainder of the procedure with respect to the pumping plan was dictated by Dr. Juancarlos Claros. The posterior incision was closed after anchoring and anchoring was accomplished with two 2-0 silk sutures and closure was accomplished with Vicryl in layers and the skin closed with a running subcuticular 3-0 Rapide. Dressing was with Mastisol, Steri-Strips, and 4x4 dressing. Prior to closure, all counts were correct x2. Again, note that the implantation of the intrathecal pump would be as per Dr. Claros's dictation. Job ID: [id number]
[2019-02-12] MEDS ORDERED: metFORMIN 500 MG TAB PO SCH ×2 (17:00→17:30)
[2019-02-12] MEDS: Gabapentin 300 MG CAP PO SCH ×2 (17:41→20:03)
[2019-02-12 19:18] VITALS: TEMP 98.1
--- NOTE | 2019-02-13 00:03 | PRG ---
DATE OF SERVICE: SUBJECTIVE: The patient is now 6-1/2 hours post intrathecal morphine bolus and continuos infusion. His pain level is reported at 1/10. This was a marked improvement. He was able to urinate with Flomax. No reversal or narcotic was required. OBJECTIVE: He is alert, oriented, in good spirit, feels well. He has expected postoperative pain in the left upper quadrant at the site of the 20 mL programmable Medtronic pump implant. ASSESSMENT AND PLAN: We will continue observation overnight. Continue current intrathecal dose at 1 mg per day. Expect discharge in the morning. The patient was able to urinate. Further titration in dosage adjustments will be made as an outpatient. He will discontinue his methadone and use only hydrocodone for breakthrough pain. Gabapentin will also be continued at 300 mg t.i.d. Job ID: [id number]
[2019-02-13] MEDS ORDERED: metFORMIN 500 MG TAB PO SCH (08:00)
[2019-02-13] MEDS: Gabapentin 300 MG CAP PO SCH (08:27)
[2019-02-13] MEDS ORDERED: Tamsulosin HCl 0.4 MG CAP PO SCH (09:00)
[2019-02-13] MEDS ORDERED: Naloxone HCl 0.4 mg/ml Vial IV SCH (09:15)
[2019-02-13 10:06] VITALS: BP 119/65
--- NOTE | 2019-02-13 12:48 | PRG ---
DATE OF SERVICE: SUBJECTIVE: The patient had a difficult night with pruritus and urinary retention. Despite the fact that he was able to urinate spontaneously yesterday evening, he had urinary retention over the night requiring an I and O cath. As stated, he has significant pruritus. He does have good pain control with his pain level at 0/10 at present. OBJECTIVE: GENERAL: The patient is alert and oriented. He is cheerful. He has less sensation of needing to urinate. LUNGS: Clear. HEART: Regular. ABDOMEN: Soft. Tenderness only over the incision, where the pump is placed. Incisions are clean and dry. IMPRESSION AND PLAN: The patient with intrathecal drug delivery system postop day 2, currently with 1 mg per day of morphine infused. Significant pruritus and urinary retention. We will reduce his dose to 0.8 mg per day. We will trial Narcan 0.1 mg IV to reverse his pruritus and urinary retention. We will also compound at [facility], naltrexone to be taken orally as an outpatient 5 to 6 mg everyday or every other day to help with urinary retention in short term as his dose reduction begins to reach efficacy. He will continue the Flomax. Planned to discharge home today. Job ID: [id number]
--- NOTE | 2019-02-14 05:34 | DIS ---
DATE OF ADMISSION: 02/12/2019 DATE OF DISCHARGE: 02/13/2019 REASON FOR ADMISSION: Implantation of intrathecal drug delivery system, programmable [employer]. SURGEONS: Dr. Juancarlos Claros and Dr. Alan Ramos. PROCEDURES: Implantation of intrathecal catheter, connected to a Medtronic programmable drug delivery system infusing morphine intrathecal for pain control. DISCHARGE MEDICATIONS: 1. Gabapentin 300 mg t.i.d. 2. Hydrocodone 10/325 one q.4 p.r.n. 3. Metformin 1000 mg one to two p.o. b.i.d. 4. Zofran 4 mg p.o. q.6 hours p.r.n. 5. Docusate 100 mg daily. 6. Lodine 500 mg p.o. b.i.d. p.r.n. pain. 7. Naltrexone compounded at 1 mg per 1 mL, the patient to take 5 mg daily or every other day for urinary retention. 8. Flomax 0.4 mg daily. SUMMARY: Mr. 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 He has persistent pain despite an exhaustive list of oral medication trials and interventional treatment, subsequently requiring intrathecal narcotic infusion. This has been very successful alleviating his pain, and his current pain level is 0/10 to 1/10. He is having narcotic side effects such as pruritis and urinary retention at 1 mg of morphine per day. His dose was reduced to 0.8 mg per day. A Narcan trial of 0.1 mg IV was provided to the patient, and he was able to urinate and have a bowel movement and this also reversed his pruritis. Prior to discharge, I reduced his dose to 0.8 mg of morphine infused over 24 hours intrathecal. We will also compound naltrexone 1 mg per 1 mL, to take 5 mL or 5 mg daily to counteract narcotic side effects. He will also continue Flomax 0.4 mg daily. As his dose reduction takes effect with less side effects, we should be able to decrease the naltrexone or eliminate the naltrexone in the future. Job ID: [id number]
== END 2019-02-13 11:49 | disposition home or self-care (01) ==
LOC: SDC 06:05 → ONC 07:40
PROVIDERS: ADMIT Anesthesiology Pain Medicine; ATTEND Specialist
PROC: 0JH83VZ Insertion of Infusion Pump into Abdomen Subcutaneous Tissue and Fascia, Percutaneous Approach (ICD-10-PCS; principal; 2019-02-12)
PROC: 00HU33Z Insertion of Infusion Device into Spinal Canal, Percutaneous Approach (ICD-10-PCS; 2019-02-12)
DX: C79.51 Secondary malignant neoplasm of bone (principal); I10 Essential (primary) hypertension; E11.9 Type 2 diabetes mellitus without complications; E78.5 Hyperlipidemia, unspecified; C80.1 Malignant (primary) neoplasm, unspecified; Z79.84 Long term (current) use of oral hypoglycemic drugs; Z79.899 Other long term (current) drug therapy
CPT/HCPCS: 51701; 62350; 62362; 72020 ×2; 76000; 82962; 96374; 96375; C1772; G0378; 36416; J0670; J0690; J1100; J1170; J2001; J2250; J2310; J2405; J2704; J2765; J3010; J3490; J7050; S0028

== ENCOUNTER 2019-03-05 09:10 | Outpatient (CLI) | payer MEDICARE, OTHER ==
[2019-03-05] MEDS ORDERED: Gadobenate Dimeglumine 529 MG/1 ML (20ML VIAL) ONE (10:35)
--- NOTE | 2019-03-05 12:06 | MRI ---
MRI THORACIC SPINE WITH AND WITHOUT CONTRAST: INDICATIONS: Lung cancer with bone metastases. Back pain. CORRELATION: Recent CT thoracic spine, dated 02/26/2019. TECHNIQUE: Multiplanar, multisequential imaging of the thoracic spine obtained. Post contrast images were obtai palmer after administering IV MultiHance. FINDINGS: There is abnormal signal in the T11 vertebra with central compression, consistent with metastatic inv olvement, as noted on recent CT. There is mild diffuse disk bulge at T10-T11, abutting the anterior cord. There is slight retropulsion of the posterior cortex of T11, effacing the anterior subarachnoi d space. Minimal bulge at T11-T12 effaces the anterior subarachnoid space. There is evidence of pos terior element involvement at this T11 vertebra with bilateral pedicle involvement. There is abnormal signal seen at the posterior-inferior aspect of the T9 vertebra. This appears to b e associated with an inferior endplate deformity and probably represents an acute Schmorl's node rath er than a metastatic lesion. It is seen on the recent CT. Metastatic involvement at this site canno t be completely excluded. There is abnormal signal involving the posterior right 9th rib and 4th rib, consistent with metastati c involvement. These rib findings were noted on recent CT. No other vertebral body abnormality identified. No other evidence of significant disk bulge or protr usion seen in the thoracic spine. Thoracic cord signal appears normally maintained. IMPRESSION: 1. Abnormal signal with central compression and slight retropulsion of the T11 vertebra, consistent with metastatic involvement, as noted on recent CT. 2. Abnormal signal enhancement involving the posterior-inferior aspect of the T9 vertebra. This is associated with an inferior endplate deformity and may represent an acute Schmorl's node. Metastatic lesion is not completely excluded; however, Schmorl's node is favored. 3. Abnormal signal involving the posterior right 9th and 4th ribs noted, as described on recent CT. POS: [facility]
== END 2019-03-05 09:11 | disposition home or self-care (01) ==
LOC: MRI 09:10
PROVIDERS: ATTEND Surgery
DX: M84.48XA Pathological fracture, other site, initial encounter for fracture (principal); M54.6 Pain in thoracic spine; M43.9 Deforming dorsopathy, unspecified
CPT/HCPCS: 72157

== ENCOUNTER 2019-03-07 06:06 | Inpatient (IN) | payer MEDICARE, OTHER ==
[2019-03-06 16:55] VITALS: BMI 22.6
[2019-03-07] MEDS ORDERED: Thrombin 5000 UNITS/5 ML VIAL ONE (06:25)
[2019-03-07] MEDS ORDERED: Bacitracin Zinc Ointment 30 gm TUBE ONE (06:25)
[2019-03-07] MEDS ORDERED: Sodium Chloride 0.9% 10 ML ONE (06:25)
[2019-03-07] MEDS ORDERED: Promethazine HCl 25 MG/ML VIAL ONE (06:46)
[2019-03-07] MEDS ORDERED: Ondansetron PF 4 MG/2 ML Vial ONE ×3 (06:46→13:27)
[2019-03-07] MEDS ORDERED: Famotidine/PF 20 mg/2ml Vial ONE (06:46)
[2019-03-07 06:54] LABS: Mean Corpuscular HGB CONC 34.1 g/dL (32.0-36.0); Mean Corpuscular Hemoglobin 34.2 pg (27.0-31.0); Mean Platelet Volume 6.4 fL (7.4-10.4); Platelet Count 254 thou/uL (130-400); RBC Distribution Width 12.6 % (11.5-14.5); Red Blood Cell (RBC) Count 3.81 mill/uL (4.70-6.10); White Blood Cell (WBC) Count 4.1 thou/uL (4.8-10.8)
[2019-03-07] MEDS ORDERED: Albumin 5% 500 ML ONE (06:59)
[2019-03-07] MEDS ORDERED: Fentanyl 250 MCG/5 ML VIAL ONE (06:59)
[2019-03-07 07:01] LABS: PTT 25.9 SEC (22.9-36.1); Prothrombin Time 12.9 SEC (12.0-14.7)
[2019-03-07] MEDS ORDERED: Ketamine 50 MG/ML (10ML VIAL) ONE (07:29)
[2019-03-07] MEDS ORDERED: Midazolam HCl 2 mg/2 ml Vial ONE (07:35)
[2019-03-07 07:39] LABS: Band 8 % (5-11); Eosinophils 1 % (0-10); Lymphocytes 27 % (21-51); MDiff Complete? YES; Monocytes 7 % (0-10); Neutrophil 57 % (42-75); RBC Morphology Normal
[2019-03-07] MEDS ORDERED: PHENYLEPHRINE-NS 100 MCG/ML 10 ML SYRINGE ONE ×2 (08:40→13:27)
[2019-03-07] MEDS ORDERED: Promethazine HCl 25 MG/ML VIAL IM PRN (10:40)
[2019-03-07] MEDS ORDERED: HYDROmorphone 2 MG/ML VIAL SLOW IVP PRN (10:40)
[2019-03-07] MEDS ORDERED: Meperidine HCl/PF 25 MG/ML VIAL SLOW IVP PRN (10:40)
[2019-03-07] MEDS ORDERED: Ondansetron HCl/PF 4 MG/2 ML Vial IVP PRN (10:40)
[2019-03-07] MEDS ORDERED: PACU-Morphine 4MG/ML VIAL SLOW IVP PRN (10:40)
[2019-03-07] MEDS ORDERED: Promethazine HCl 25 MG/ML VIAL SLOW IVP PRN (10:40)
[2019-03-07] MEDS ORDERED: Morphine Sulfate 2 MG/ML SYRINGE SLOW IVP PRN (10:40)
[2019-03-07] MEDS ORDERED: HYDROmorphone 2 MG/ML VIAL ONE ×2 (11:31→12:14)
[2019-03-07] MEDS ORDERED: Fleet Enema 133 ML BOT PR PRN (11:59)
[2019-03-07] MEDS ORDERED: Acetaminophen 325 MG TAB PO PRN (11:59)
[2019-03-07] MEDS ORDERED: Promethazine HCl 25 MG/ML VIAL IVPB PRN (11:59)
[2019-03-07] MEDS ORDERED: traMADol HCl 50 MG TAB PO PRN (11:59)
[2019-03-07] MEDS ORDERED: Morphine 2 MG/ML SYRINGE SLOW IVP PRN ×4 (11:59→19:01)
[2019-03-07] MEDS ORDERED: Mag-Al 1200 mg/1200 mg/30 ML UDCUP PO PRN (11:59)
[2019-03-07] MEDS ORDERED: Bisacodyl 10 MG SUPP PR PRN (11:59)
[2019-03-07] MEDS ORDERED: Milk Of Magnesia 30 ML UDCUP PO PRN (11:59)
[2019-03-07] MEDS ORDERED: Loperamide HCl 2 MG CAP PO PRN (12:01)
[2019-03-07] MEDS ORDERED: Fentanyl 100 MCG/2 ML VIAL ONE ×3 (12:07→13:38)
[2019-03-07] MEDS ORDERED: Prochlorperazine Maleate 5 MG TAB PO PRN (12:21)
[2019-03-07] MEDS ORDERED: Dexamethasone 20 MG/5 ML VIAL ONE (13:27)
[2019-03-07] MEDS ORDERED: Rocuronium Bromide 10 MG/ML (10ML VIAL) ONE (13:27)
[2019-03-07] MEDS ORDERED: Glycopyrrolate 0.2 MG/ML 5 ML SYRINGE ONE (13:27)
[2019-03-07] MEDS ORDERED: Lidocaine 1% PF 5 ML VIAL ONE (13:27)
[2019-03-07] MEDS ORDERED: PROPOFOL 200 MG/20 ML VIAL ONE (13:27)
[2019-03-07] MEDS ORDERED: Gabapentin 300 MG CAP PO SCH (15:00)
[2019-03-07] MEDS ORDERED: CEFAZOLIN 2 GM in Premix Bag 1 BAG IVPB SCH (15:00)
[2019-03-07] MEDS: tiZANidine HCl 4 MG TAB PO PRN (15:30)
[2019-03-07] MEDS: Sodium Chloride 0.9% 1,000 ML IV SCH ×2 (18:03→23:38)
[2019-03-07] MEDS: CEFAZOLIN 2 GM in Premix Bag 1 BAG IVPB SCH ×2 (18:08→23:38)
[2019-03-07] MEDS: Gabapentin 300 MG CAP PO SCH (21:32)
[2019-03-07] MEDS: HYDROcodone/Acetaminophen 7.5/325 mg Tablet PO PRN (23:38)
[2019-03-08] MEDS: HYDROcodone/Acetaminophen 7.5/325 mg Tablet PO PRN ×4 (03:41→21:45)
[2019-03-08] MEDS: Morphine 4 MG/ML VIAL SLOW IVP PRN ×3 (05:25→18:47)
[2019-03-08] MEDS: Ondansetron ODT 8 MG TAB PO PRN ×2 (05:35→13:38)
[2019-03-08] MEDS: Lisinopril/Hydrochlorothiazide 20/25 mg Tablet PO SCH (07:26)
[2019-03-08] MEDS: tiZANidine HCl 4 MG TAB PO PRN ×2 (07:28→21:45)
[2019-03-08] MEDS: metFORMIN 500 MG TAB PO SCH ×2 (07:28→18:35)
[2019-03-08] MEDS: Gabapentin 300 MG CAP PO SCH ×2 (07:28→21:46)
--- NOTE | 2019-03-08 08:19 | OP ---
DATE OF PROCEDURE: 03/07/2019 ASSEMBLER BICYCLE: Sathish Edmonds PA-C. WOUND CLASSIFICATION: Type 1 wound. PREPROCEDURE DIAGNOSIS: T11 pathologic fracture with carcinoma metastasis and with mechanical instability and threat of neurological decline. POSTPROCEDURE DIAGNOSIS: T11 pathologic fracture with carcinoma metastasis and with mechanical instability and threat of neurological decline. PROCEDURES PERFORMED: 1. T9, T10, T12, L1 posterior instrumented stabilization with screw yulisa construct. 2. T11 laminectomy for decompression of spinal cord. 3. Treat thoracic spine fracture with open reduction and internal fixation. DESCRIPTION OF PROCEDURE: After informed consent was obtained from the patient , the patient was brought to the OR. Proper patient, pause, and identification were carried out. He was positioned prone on the OR table and all appropriate points were padded. We identified the T11 pathologic fracture and used this as a localization. A linear jose guadalupe was drawn from T9 all [address] down to L1. Proper patient, pause, and identification were carried out. The wound was then opened with a combination of sharp, monopolar, and blunt dissection, and the T9, T10, T11, T12 and L1 dorsal spines and lamina were all exposed. Localization confirmed our area of interest. We then performed gross and fluoroscopic visualization, pedicle screw yulisa placement at T9, T10, T12 and L1. I did not place screws at T11, as it was infiltrated with tumor. We then turned our attention to placement of rods and final tightening occurred. We were satisfied at that time with our construct with both gross and fluoroscopic visualization. We then performed a T11 laminectomy to ensure decompression of the common dural tube and protection of spinal cord. Copious irrigation occurred throughout as did maximizing hemostasis, but when we placed the rods were able to internally reduce his kyphotic deformity and also his Da Silva angle deformity in the coronal plane to restore normal anatomic alignment. The wound was copiously irrigated. Hemostasis maximized. The wound was closed in anatomic layers following sprinkling of vancomycin powder. The patient then emerged from anesthesia. Job ID: [id number] [facility]
--- NOTE | 2019-03-08 11:53 | PRG ---
DATE OF SERVICE: 03/08/2019 SUBJECTIVE: Mr. Leone is postoperative day 1 from T9-L1 stabilization and T11 decompression with open reduction and internal fixation of T11 pathologic fracture deformity. He is doing well. Mr. Leone is moving all extremities to command. He is dealing with incisional pain, but otherwise is recovering well. I have let inpatient rehab know that he may be dismissed to inpatient rehab as early as tomorrow. He has had no diarrhea. We will remove his Darden catheter potentially today, if not tomorrow and again, he should have his brace on whenever he is out of bed. Job ID: [id number]
[2019-03-08] MEDS: Sodium Chloride 0.9% 1,000 ML IV SCH (15:46)
[2019-03-08] MEDS ORDERED: Bismuth Subs 17.5mg/mL Susp 120 ML BOT PO PRN (17:38)
[2019-03-09] MEDS: HYDROcodone/Acetaminophen 7.5/325 mg Tablet PO PRN ×3 (03:28→13:37)
[2019-03-09] MEDS: Sodium Chloride 0.9% 1,000 ML IV SCH (05:03)
[2019-03-09] MEDS: Ondansetron ODT 8 MG TAB PO PRN (06:47)
--- NOTE | 2019-03-09 08:03 | PRG ---
DATE OF SERVICE: 03/09/2019 SUBJECTIVE: The patient is a 63-year-old male, who underwent T11 laminectomy and T9-L1 fusion, following a T11 fracture. Following the surgery, he was transitioned to the Med/Surg floor. He has had some issues with pain control and thus been slow to mobilize. He is wearing a TLSO brace for any out-of-bed activities. The Darden catheter remains in place. He denies any weakness in the legs, numbness, tingling. He is not having any incisional drainage issues. He has remained afebrile throughout his course. OBJECTIVE: The patient is awake, alert, in no acute distress this morning. He has free active range of motion of all extremities. No focal motor weakness or reflex asymmetry. Sensation is intact to light touch. His incision is dry and intact. ASSESSMENT AND PLAN: We will plan to transition the patient to inpatient rehabilitation likely later today. We will follow up with Dr. Delvalle once dismissed from rehab. I have discussed this plan with the family, who is in agreement. Job ID: [id number]
[2019-03-09] MEDS: Gabapentin 300 MG CAP PO SCH (08:26)
[2019-03-09] MEDS: metFORMIN 500 MG TAB PO SCH (08:26)
[2019-03-09] MEDS: tiZANidine HCl 4 MG TAB PO PRN ×2 (08:26→16:26)
[2019-03-09 11:43] VITALS: BP 115/71; TEMP 98.6
[2019-03-09] MEDS: Lisinopril/Hydrochlorothiazide 20/25 mg Tablet PO SCH (11:48)
== END 2019-03-09 16:40 | DRG 519 ==
LOC: SURG A 06:06 → EDSTATUS 13:59 → SJJU 14:00
PROVIDERS: ADMIT Surgery; ATTEND Surgery
PROC: 0PS404Z Reposition Thoracic Vertebra with Internal Fixation Device, Open Approach (ICD-10-PCS; principal; 2019-03-07)
PROC: 01N80ZZ Release Thoracic Nerve, Open Approach (ICD-10-PCS; 2019-03-07)
DX: M84.58XA Pathological fracture in neoplastic disease, other specified site, initial encounter for fracture (principal); C79.51 Secondary malignant neoplasm of bone
CPT/HCPCS: 36415; 36416; 72157; 76000; 80053; 82248; 83615; 84100; 84550; 85025; 85610; 85730; 86850; 86900; 86901; A9577; C1713; J0131; J0690; J1170; J2250; J2270; J2405; J2550; J3010; J3370; J3490; P9045; S0028

== ENCOUNTER 2019-04-03 12:45 | Outpatient (CLI) | payer MEDICARE, OTHER ==
--- NOTE | 2019-04-03 15:47 | CT ---
CT thoracic spine noncontrast: DATE: 04/03/2019 HISTORY: 63-year-old male with thoracic spine pain due to spinal osseous metastatic disease from lung cancer. COMPARISON: Thoracic spine CT of 02/26/2019 FINDINGS: Again noted is the large osteolytic destructive lesion involving almost the entire T11 vertebral body , resulting in mild to moderate loss of height. Mild encroachment upon the anterior aspect of the spinal canal by the expansile osteolytic lesion, causing at least mild central spinal canal stenosis at T11. There has been interval placement of bilateral pedicle screws with connecting interlocking rods at T9 , T10, T12, and L1. The rest of the vertebral body heights are maintained. Focal sclerotic lesion at the posterior inferior corner of the T9 vertebral body could be a reactive change to Schmorl's nod e or a metastatic focus. Schmorl's node is slightly favored. Destructive moderate the large mixed osteolytic and osteoblastic lesion with associated pathologic fr acture deformity of posterior aspect of right ninth rib. Mixed osteolytic and osteoblastic deformity due to metastatic involvement of posterior aspect of righ t fourth rib. IMPRESSION: 1.) Large metastatic osteolytic lesion involving T11 vertebral body with loss of height representing pathologic compression fracture. 2) there has been interval stabilization by placement of pedicle screws and vertical interlocking yulisa s at 2 levels superior to this, and 2 levels inferior to this. 3) osseous metastatic lesions of posterior aspects of right fourth rib and right ninth rib (involved by pathologic fracture)
--- NOTE | 2019-04-03 16:02 | CT ---
CT lumbar spine noncontrast: DATE: 04/03/2019 HISTORY: 63-year-old male with lung cancer metastatic to bone, including lumbar spine. Severe right lumbar rad iculopathy since recent surgery. COMPARISON: CT of 02/26/2019. FINDINGS: Again noted is the pain pump catheter entering the spinal canal at L2-3, and extending superiorly int o the thoracic spinal canal. There are new bilateral pedicle screws at T12 and L1. Lumbar vertebral body heights are maintained. Again noted is the osteoblastic approximately 1 cm metastatic lesion with osteolytic centimeter, to t he right of midline at L1 vertebral body. Again noted is the large osteolytic lesion involving the right pedicle of L3, extending into right tr ansverse process and right pars interarticularis, with bone destruction and nondisplaced pathologic fracture lucencies. Again noted is the 1.5 cm lesion in the left iliac bone slightly lateral to the left SI joint at the S1 level, with osteolytic centimeter and osteoblastic lesion. At L4-5 there is severe left facet DJD and moderate to severe right facet DJD, ligamentum flavum thic kening, and mild grade 1 anterolisthesis of L4 on L5, all contributing to moderate thecal sac stenosis and moderate bilateral neural foraminal stenosis. At L5-S1 there is moderate disc space narrowing, severe right neural foraminal stenosis, and moderate to severe left neural foraminal stenosis, but no central stenosis. Moderate right facet DJD. No retroperitoneal hematoma. IMPRESSION: 1.) Interval placement of Pedicle screws at T12 and L1. 2) metastatic osseous lesions, including L1 body, right L3 pedicle and posterior elements, and left i liac bone. 3) high-grade facet osteoarthrosis bilaterally at L4-5. 4) no other interval change other than the pedicle screws
== END 2019-04-03 12:46 | disposition home or self-care (01) ==
LOC: BICCT 12:45
PROVIDERS: ATTEND Anesthesiology Pain Medicine
DX: M47.26 Other spondylosis with radiculopathy, lumbar region (principal); C49.9 Malignant neoplasm of connective and soft tissue, unspecified; C79.51 Secondary malignant neoplasm of bone; Z98.890 Other specified postprocedural states
CPT/HCPCS: 72128; 72131

== ENCOUNTER 2019-04-11 13:33 | Emergency (ER) | payer MEDICARE, OTHER ==
[2019-04-11 16:20] LABS: #Eosinphils 0.1 thou/uL (0.0-0.7); #Lymphocytes 1.1 thou/uL (1.20-3.40); #Monocytes 0.6 thou/uL (0.11-0.59); #Neutrophils 4.7 thou/uL (1.40-6.50); %Basophils 0.2 % (0.0-1.0); %Eosinophils 0.9 % (0.0-10.0); %Lymphocytes 16.8 % (21.0-51.0); %Neutrophils 73.2 % (42.0-75.0); Hemoglobin 13.5 g/dL (14.0-18.0); Mean Corpuscular HGB CONC 34.2 g/dL (32.0-36.0); Mean Corpuscular Hemoglobin 35.1 pg (27.0-31.0); Mean Platelet Volume 6.2 fL (7.4-10.4); Platelet Count 278 thou/uL (130-400); RBC Distribution Width 12.8 % (11.5-14.5); Red Blood Cell (RBC) Count 3.86 mill/uL (4.70-6.10); White Blood Cell (WBC) Count 6.5 thou/uL (4.8-10.8)
[2019-04-11] MEDS ORDERED: Ondansetron PF 4 MG/2 ML Vial ONE (16:35)
[2019-04-11] MEDS ORDERED: Lidocaine 1% w/Epinephrine 1:100K 20 ML VIAL ONE (16:40)
[2019-04-11] MEDS ORDERED: Morphine 2 MG/ML SYRINGE ONE (16:42)
[2019-04-11 16:46] LABS: Anion Gap 12 mmol/L (10-20); BUN (Urea Nitrogen) 13 mg/dL (8.4-25.7); Calc. Creatinine Clearance 0 mL/min (70-130); Calcium 10.3 mg/dL (7.8-10.44); Carbon Dioxide 31 mmol/L (23-31); Chloride 93 mmol/L (98-107); Estimated GFR-MDRD Greater than 90; Glucose 116 mg/dL (80-115); Potassium 3.5 mmol/L (3.5-5.1); Sodium 132 mmol/L (136-145)
--- NOTE | 2019-04-11 23:52 | HP ---
This is Sathish Edmonds PA-C dictating a report for Elgin Delvalle MD. This is a 30-minute initial patient evaluation of which greater than 50% of the exam was spent in counseling and coordinating the patient's care. Remainder of the exam was spent in review of patient's medical records and formulation of treatment plan. CHIEF COMPLAINT: Wound dehiscence status post multilevel thoracolumbar fusion in February 2019. HISTORY OF PRESENT ILLNESS: Mr. Leone is a 64-year-old male who is well known to our team as we at the end of February did a T9-L1 fusion for T11 pathologic fracture related to sarcoma. He was actually seen in our office yesterday and doing well with a very small amount of superficial wound dehiscence in the middle aspect of his incision. He did work with therapies, unfortunately with doing significant amount of stretching exercises, his wound dehisced further. He has not been running any fever, chills, and unfortunately has yet to start his antibiotics. He remains with overall generalized weakness, though he is stable from yesterday. He continues to wear a clamshell TLSO brace. He was recently given some Ancef and became nauseated, but otherwise he has been getting his appetite back. He is currently undergoing chemotherapy. PHYSICAL EXAMINATION: GENERAL: The patient is awake, alert, and appropriate. He has trace weakness throughout all the extremities, but this is stable from what his exam was yesterday. He is wearing a clamshell TLSO brace and when this was removed his incision is covered with clean dry gauze and tape dressing. When this was removed, there is dehiscence in the middle aspect of the incision down to the fascial layer, but this is intact. There I cannot express any drainage. There is no odor to the incision. Does not appear to be infected in any way, simply dehisced. There is no significant surrounding erythema to the incision and there is no significant tenderness to palpation at the area of dehiscence. IMPRESSION AND DIAGNOSIS: Status post multilevel thoracolumbar fusion in late February 2019, now with wound dehiscence. PLAN: Discussed the patient's case with Dr. Delvalle. At this time, I will reapproximate the incision with dissolvable Monocryl suture and Dermabond. The patient did have CBC and electrolytes. The CBC is back and it appears to be within normal limits, electrolytes are still pending. He will be given Ancef as well as morphine. Again, we will reapproximate the incision at the bedside. He will likely be dismissed later to go home with his and his is appreciative of our care as is the patient. I have updated the plan and he will keep his followup with our office as scheduled and will continue with Keflex as ordered yesterday outpatient. Job ID: [id number]
== END 2019-04-11 18:18 | disposition home or self-care (01) ==
LOC: ERS 13:33
DX: T81.31XA Disruption of external operation (surgical) wound, not elsewhere classified, initial encounter (principal); I10 Essential (primary) hypertension; E11.9 Type 2 diabetes mellitus without complications; Z87.442 Personal history of urinary calculi
CPT/HCPCS: 12001; 80048; 85025; 96365; 96375; J0690; J2001; J2270; J2405

== ENCOUNTER 2019-04-29 12:44 | Inpatient (IN) | payer MEDICARE, OTHER ==
[2019-04-29 17:08] VITALS: BMI 21.0
[2019-04-29] MEDS ORDERED: Dextrose 5% in Water 1,000 ML IV PRN (18:15)
[2019-04-29] MEDS ORDERED: HumaLOG 300 UNITS/3 ML VIAL SC PRN (18:15)
[2019-04-29] MEDS ORDERED: Dextrose 50% Abboject 50 ML SYRINGE SLOW IVP PRN (18:15)
[2019-04-29] MEDS ORDERED: Acetaminophen 325 MG TAB PO PRN (18:18)
[2019-04-29] MEDS ORDERED: Ondansetron PF 4 MG/2 ML Vial IVP PRN (18:18)
[2019-04-29] MEDS ORDERED: Ondansetron ODT 4 MG TAB PO PRN (18:18)
[2019-04-29] MEDS ORDERED: Acetaminophen 650 MG Suppository PR PRN (18:18)
[2019-04-29] MEDS ORDERED: tiZANidine HCl 4 MG TAB PO PRN (18:31)
[2019-04-29 19:01] LABS: #Lymphocytes 0.8 thou/uL (1.20-3.40); #Monocytes 0.4 thou/uL (0.11-0.59); #Neutrophils 2.1 thou/uL (1.40-6.50); %Basophils 0.3 % (0.0-1.0); %Eosinophils 1.1 % (0.0-10.0); %Lymphocytes 22.7 % (21.0-51.0); %Monocytes 12.6 % (0.0-10.0); %Neutrophils 63.3 % (42.0-75.0); Hemoglobin 12.2 g/dL (14.0-18.0); Mean Corpuscular HGB CONC 35.1 g/dL (32.0-36.0); Mean Corpuscular Hemoglobin 35.3 pg (27.0-31.0); Mean Platelet Volume 6.2 fL (7.4-10.4); Platelet Count 252 thou/uL (130-400); RBC Distribution Width 12.7 % (11.5-14.5); Red Blood Cell (RBC) Count 3.46 mill/uL (4.70-6.10); White Blood Cell (WBC) Count 3.4 thou/uL (4.8-10.8)
[2019-04-29 19:21] LABS: ALT (SGPT) 11 U/L (8-55); AST (SGOT) 13 U/L (5-34); Albumin 3.7 g/dL (3.4-4.8); Alkaline Phosphatase 44 U/L (40-150); Anion Gap 10 mmol/L (10-20); BUN (Urea Nitrogen) 17 mg/dL (8.4-25.7); Bilirubin, Total 0.5 mg/dL (0.2-1.2); Calc. Creatinine Clearance 126 mL/min (70-130); Calcium 9.1 mg/dL (7.8-10.44); Carbon Dioxide 26 mmol/L (23-31); Chloride 100 mmol/L (98-107); Estimated GFR-MDRD Greater than 90; Globulin 1.8 g/dL (2.4-3.5); Glucose 204 mg/dL (80-115); Potassium 3.6 mmol/L (3.5-5.1); Protein, Total 5.5 g/dL (5.8-8.1); Sodium 132 mmol/L (136-145)
[2019-04-29] MEDS: Sodium Chloride 0.9% 1,000 ML IV SCH (20:30)
[2019-04-29] MEDS: clonazePAM 0.5 MG TAB PO SCH (20:34)
[2019-04-29] MEDS: Dexamethasone 4 MG in Sodium Chloride 0.9% 50 ML IVPB SCH (20:34)
[2019-04-29] MEDS: Gabapentin 300 MG CAP PO SCH (20:34)
[2019-04-29] MEDS: Vancomycin HCl 1 GM in Premix Bag 1 BAG IVPB SCH (20:34)
[2019-04-29] MEDS: Famotidine/PF 20 mg/2ml Vial SLOW IVP SCH (20:34)
--- NOTE | 2019-04-29 20:47 | HP ---
CHIEF COMPLAINT: Right lower extremity numbness and weakness with back pain. HISTORY OF PRESENT ILLNESS: Mr. Leone is a pleasant 64-year-old man with a history of lung cancer with metastasis to the thoracic spine and lumbar spine as well as ribs. He is under the care of Dr. Elkins and immunotherapy. History of pathologic fracture at T11 due. Status post fusion of T9-L1 and laminectomy of T11 on . He presented to the ER with wound dehiscence of distal end due to physical therapy, per patient. Seen by Sathish MEDINA who re-sutured and placed him on empiric antibiotics. He presents with progressive weakness, numbness/burning sensation to the right lower extremity. Started dragging his right leg 2 weeks ago, and 1 week ago unable to stand on right leg. He obtained a wheelchair, currently not able to stand/pivot on right leg. Saw Dr. Elkins today and admitted for MRI under anesthesia due to pain lying flat. He has a pain pump. Reports burning sensation is relieved with his right leg his abducted and fully flexed at the knee. In the last week he has developed stool incontinence. He reports feeling as if he has to pass wind, and later realizes he had a bowel movement. Complains of saddle anesthesia. Denies having any urinary incontinence but has noted urinary retention, only able to urinate a small amount at a time. Post surgical CT T-Spine on 04/03/19, showed large metastatic osteolytic lesion involving T11 vertebral body with loss of height representing the pathologic compression fracture with interval stabilization by placement of pedicle screws and vertical interlocking rods. Also noted were osseous metastatic lesions of the posterior aspects of the right 4th rib and right 9th rib involved by pathologic fracture. Placement of pedicle screws noted at T12 and L1 with metastatic osseous lesions involving L1 body and right L3 pedicle and posterior elements and left iliac bone, high-grade facet osteoarthrosis bilaterally at L4-L5 with no other interval change other than the pedicle screws. He should be wearing a TLSO brace, but has not been doing so as he states it is uncomfortable. It is unclear how long he has been off the TLSO brace, but he did have it on when he was seen in the ER by Sathish the neurosurgery PA. REVIEW OF SYSTEMS: He denies having any fevers, chills, or sweats. Denies having any headaches or dizziness. He has been eating, but does admit to decreased fluid intake. Denies having any nausea or vomiting. No abdominal pain or cramping, but he does report loss of sensation along the right side of his abdomen ever since the pain pump was placed. He denies any hematuria, but does report decreased urinary output at times feels as if he needs to empty his bladder, but denies any suprapubic discomfort. States a very small amount of urine will dribble out at a time. He has not noted any lower leg swelling. No chest pain, palpitations, or shortness of breath. No weakness, numbness, or tingling involving the upper extremities. PAST MEDICAL HISTORY: 1. Metastatic lung cancer. 2. Diabetes. 3. Hypertension. 4. Hyperlipidemia. 5. History of prostatitis. 6. History of kidney stones. PAST SURGICAL HISTORY: 1. Herniated disk repair, lumbar surgery in 2000. 2. Left hernia surgery by Dr. Proctor in 1997. 3. Colonoscopy by Dr. Macias. 4. T9 through L1 fusion for T11 pathologic fracture with laminectomy of T11. 5. Pain pump. 6. Knqu-S-jainsdhi placement. ALLERGIES: REACTION TO PHENERGAN. CURRENT MEDICATIONS: 1. Clonazepam. 2. Hydrocodone. 3. Loperamide. 4. Metformin. 5. Ondansetron. 6. Keytruda (immunotherapy). 7. MiraLAX. 8. Compazine. 9. Zanaflex. 10. Gabapentin. 11. Lisinopril/hydrochlorothiazide. PHYSICAL EXAMINATION: GENERAL: The patient appears thin, well developed, in no acute distress. VITAL SIGNS: Temperature 97.9, pulse 74, respirations 18, O2 saturation 97% on room air, blood pressure 106/77. HEENT: Normocephalic and atraumatic. Pupils are equal, round, reactive to light. Sclerae without icterus. Extraocular movements intact. Oropharynx is clear. NECK: Supple without lymphadenopathy. No nuchal rigidity or cervical spine tenderness. LUNGS: Clear to auscultation bilaterally without wheezes, rales, or rhonchi. CARDIAC: Regular rate and rhythm. ABDOMEN: Soft, nontender, nondistended. Some reduced sensation along the right side of his abdomen. No suprapubic tenderness. No guarding or rigidity. EXTREMITIES: No lower leg swelling or edema. MUSCULOSKELETAL: Significantly reduced power in the right lower extremity, unable to straight leg raise passive or against resistance. Able to slightly plantar flex and extend, but no strength in the right foot. Plantar reflex is intact in the left foot with ability to flex and extend the left foot against resistance 2/4 power in the left lower extremity. Unable to straight leg raise, but able to flex at the knee on his own today, but able to flex at the knee. Reduced sensation involving the left lower extremity as well as but with a burning sensation in the right lower extremity and only able to find comfort with burning sensation in the right leg if he keeps with adduction of the right leg and knee flexed. SKIN: Without rash or jaundice. LABORATORY DATA: None. IMPRESSION AND PLAN: Mr. Leone is a pleasant 64-year-old man, who is being admitted for management of the following. 1. Cauda equina. The patient with severe weakness and numbness involving the right lower extremity with loss of use for the last 2 weeks. Previously able to drag his leg when using his walker and for the last week has been wheelchair bound and obtained a wheelchair himself. Seen by Dr. Elkins today and admitted for an MRI imaging under anesthesia, which has been scheduled for tomorrow morning. The patient will be kept n.p.o. tonight. No new spinal tenderness. No clinical evidence of infection, however, we will cover prophylactically with vancomycin. We will also start Decadron 10 mg q.6 hours. Consult has been placed to Neurosurgery. PET scan was done on April 26, 2019, showing no new PET avid metastases. The patient has been put to inpatient status following discussion with Dr. Aguilar. 2. Spinal incision. Clean and dry without any purulent discharge or bleeding or surrounding erythema. Again, we have started empiric antibiotics. Wound care consult has been placed for continued dressing changes. No evidence of wound dehiscence at this present time. 3. Urinary retention. The patient having dribbling of urine and unable to completely empty his bladder. A bladder scan has been requested and we will place Darden catheter if he is actively retaining urine. The patient states he has been drinking less fluids. We do not have any renal function at present, but we will provide IV hydration. 4. Diabetes. We will hold metformin and we will initiate insulin sliding scale. 5. Hypertension. We will resume home medications and monitor blood pressure. 6. Gastrointestinal prophylaxis. 7. Deep venous thrombosis prophylaxis with JUANCARLOS hose. We will hold on mechanical SCDs given the burning sensation he feels in the right leg and lack of sensation involving the left leg. We will hold on chemical prophylaxis until laboratory studies done to ensure there was no concern for renal failure. 8. Code status. The patient did request to be DNR. However, it appears this conversation has not been held before between himself and his family. Family seemed to be concerned about this and would like to talk things over. We will place Palliative Care consult in this regard and also for discussion of goals of therapy. The patient's case was discussed with Dr. Aguilar, who agrees with plan of care as described above. Job ID: [id number]
[2019-04-29 21:13] LABS: Lactic Acid 1.6 mmol/L (0.5-2.2)
[2019-04-29 22:10] LABS: Bilirubin Negative (Negative); Blood, Urine Negative (Negative); Clarity CLEAR (Clear); Glucose, Urine (Dipstick) Negative (Negative); Leukocyte Negative (Negative); Nitrite Negative (Negative); Protein, Urine (Dipstick) Negative (Neg-Trace); Specific Gravity, Urine 1.021 (1.002-1.036)
[2019-04-29 22:11] LABS: Bacteria/HPF None Seen HPF (None Seen); Hyaline Casts/LPF 0-3 HYALINE CAST LPF (0-3 Hyaline); RBC/HPF 0-3 HPF (0-3); Squamous Epithelial None Seen HPF (0-3); WBC/HPF None Seen HPF (0-3)
[2019-04-29 22:12] LABS: Urine Culture Reflex No No
[2019-04-29] MEDS: Ketorolac Tromethamine 30 MG/ML VIAL IVP SCH (23:17)
[2019-04-30] MEDS: HYDROcodone/Acetaminophen 10/325 mg Tablet PO PRN ×3 (01:07→21:12)
[2019-04-30] MEDS: Dexamethasone 4 MG in Sodium Chloride 0.9% 50 ML IVPB SCH (01:11)
[2019-04-30] MEDS: Ketorolac Tromethamine 30 MG/ML VIAL IVP SCH ×3 (05:40→16:52)
[2019-04-30 05:49] LABS: #Lymphocytes 0.6 thou/uL (1.20-3.40); #Monocytes 0.1 thou/uL (0.11-0.59); #Neutrophils 2.1 thou/uL (1.40-6.50); %Eosinophils 0.6 % (0.0-10.0); %Lymphocytes 19.5 % (21.0-51.0); %Monocytes 3.9 % (0.0-10.0); Mean Corpuscular HGB CONC 34.3 g/dL (32.0-36.0); Mean Corpuscular Hemoglobin 34.8 pg (27.0-31.0); Mean Platelet Volume 6.1 fL (7.4-10.4); Platelet Count 233 thou/uL (130-400); RBC Distribution Width 12.6 % (11.5-14.5); Red Blood Cell (RBC) Count 3.72 mill/uL (4.70-6.10); White Blood Cell (WBC) Count 2.8 thou/uL (4.8-10.8)
[2019-04-30 06:09] LABS: Anion Gap 10 mmol/L (10-20); BUN (Urea Nitrogen) 15 mg/dL (8.4-25.7); Calc. Creatinine Clearance 138 mL/min (70-130); Calcium 9.3 mg/dL (7.8-10.44); Carbon Dioxide 26 mmol/L (23-31); Chloride 102 mmol/L (98-107); Estimated GFR-MDRD Greater than 90; Glucose 172 mg/dL (80-115); Potassium 4.3 mmol/L (3.5-5.1); Sodium 134 mmol/L (136-145)
[2019-04-30] MEDS: Lisinopril/Hydrochlorothiazide 20/25 mg Tablet PO SCH (08:52)
[2019-04-30] MEDS: Famotidine/PF 20 mg/2ml Vial SLOW IVP SCH ×2 (08:53→21:08)
[2019-04-30] MEDS: Vancomycin HCl 1 GM in Premix Bag 1 BAG IVPB SCH ×2 (08:53→21:18)
[2019-04-30] MEDS: clonazePAM 0.5 MG TAB PO SCH ×2 (08:53→21:03)
[2019-04-30] MEDS: Dexamethasone 4 mg/ml Vial SLOW IVP SCH ×3 (08:53→21:07)
[2019-04-30] MEDS: Gabapentin 300 MG CAP PO SCH ×4 (09:12→21:27)
--- NOTE | 2019-04-30 10:26 | PDOC.PN ---
- Subjective Encounter Start Date: 04/30/19 Encounter Start Time: 09:00 -: old records requested/rev Patient seen and examined. No new complaints. No overnight events pt has right leg weakness and numbness, - Objective Resuscitation Status - Order Detail: 04/29/19 18:18 Resuscitation Status Routine Co-Sign Provider: Resuscitation Status: FULL: Full Resuscitation MAR Reviewed: Yes Vital Signs & Weight: Vital Signs (12 hours) Temp Pulse Resp BP Pulse Ox 04/30/19 08:52 92 04/30/19 07:54 97.5 F L 92 16 128/88 94 L 04/30/19 04:20 97.5 F L 89 14 115/79 98 04/30/19 00:08 98.5 F 76 16 106/69 94 L 04/29/19 22:47 94 L Weight Weight 151 lb I&O: 04/29/19 04/30/19 05/01/19 06:59 06:59 06:59 Intake Total 1340 Output Total 2600 Balance -1260 Result Diagrams: 04/30/19 05:26 04/30/19 05:26 Additional Labs: Accuchecks 04/30/19 04/29/19 04:24 23:17 POC Glucose 184 H 128 H Phys Exam - Physical Examination Constitutional: NAD HEENT: PERRLA, moist MMs, sclera anicteric Neck: no JVD, supple Respiratory: no wheezing, no rales, no rhonchi Cardiovascular: RRR, no significant murmur, no rub Gastrointestinal: soft, non-tender, no distention, positive bowel sounds Musculoskeletal: no edema, pulses present right leg weak and numb more than left Lymphatic: no nodes Psychiatric: normal affect, A&O x 3 Skin: no rash, normal turgor Dx/Plan (1) Cauda equina syndrome Code(s): G83.4 - CAUDA EQUINA SYNDROME Status: Acute (2) Leucopenia Code(s): D72.819 - DECREASED WHITE BLOOD CELL COUNT, UNSPECIFIED Status: Acute (3) Macrocytic anemia Code(s): D53.9 - NUTRITIONAL ANEMIA, UNSPECIFIED Status: Acute (4) Urinary retention Code(s): R33.9 - RETENTION OF URINE, UNSPECIFIED Status: Acute (5) Diabetes type 2, controlled Code(s): E11.9 - TYPE 2 DIABETES MELLITUS WITHOUT COMPLICATIONS Status: Chronic (6) Hypertension Code(s): I10 - ESSENTIAL (PRIMARY) HYPERTENSION Status: Chronic (7) Metastatic lung cancer (metastasis from lung to other site) Code(s): C34.90 - MALIGNANT NEOPLASM OF UNSP PART OF UNSP BRONCHUS OR LUNG Status: Chronic - Plan cont current plan of care, plan discussed w/ family * today MRI ordered under anesthesia * medication reviewed as below * symptomatic treatment. * will ask Dr Calin Tinsley if he wanted to continue taking care of his patient during this admission * oncology, Dr Gaitan,on case * resume metformin Review of Systems - Review of Systems ENT: negative: Ear Pain, Ear Discharge, Nose Pain, Nose Discharge, Nose Congestion, Mouth Pain, Mouth Swelling, Throat Pain, Throat Swelling, Other Respiratory: negative: Cough, Dry, Shortness of Breath, Hemoptysis, SOB with Excertion, Pleuritic Pain, Sputum, Wheezing Cardiovascular: negative: chest pain, palpitations, orthopnea, paroxysmal nocturnal dyspnea, edema, light headedness, other Gastrointestinal: negative: Nausea, Vomiting, Abdominal Pain, Diarrhea, Constipation, Melena, Hematochezia, Other Genitourinary: Retention. negative: Dysuria, Frequency, Incontinence, Hematuria , Other Musculoskeletal: negative: Neck Pain, Shoulder Pain, Arm Pain, Back Pain, Hand Pain, Leg Pain, Foot Pain, Other Neurological: Weakness, Numbness. negative: Incoordination, Change in Speech, Confusion, Seizures, Other - Medications/Allergies Allergies/Adverse Reactions: Allergies Allergy/AdvReac Type Severity Reaction Status Date / Time No Known Drug Allergies Allergy Verified 03/06/19 16:52 Medications: Current Medications Acetaminophen (Tylenol) 650 mg PO Q4H PRN PRN Reason: Headache/Fever/Mild Pain (1-3) Acetaminophen (Tylenol) 650 mg VT Q4H PRN PRN Reason: Headache/Fever/Mild Pain (1-3) Hydrocodone Bitart/Acetaminophen ([place] 10/325) 1 tab PO Q6HR PRN PRN Reason: Moderate Pain (4-6) Last Admin: 04/30/19 01:07 Dose: 1 tab Clonazepam (Klonopin) 0.5 mg PO BID PO[facility]A Last Admin: 04/30/19 08:53 Dose: 0.5 mg Dexamethasone (Decadron) 4 mg SLOW IVP 0200,0800,1400,2000 [facility] Last Admin: 04/30/19 08:53 Dose: 4 mg Dextrose/Water (Dextrose 50%) 25 gm SLOW IVP PRN PRN PRN Reason: Hypoglycemia Famotidine (Pepcid) 20 mg SLOW IVP Q12HR [facility] Last Admin: 04/30/19 08:53 Dose: 20 mg Gabapentin (Neurontin) 300 mg PO TID [facility] Last Admin: 04/30/19 09:12 Dose: 300 mg Glucagon (Glucagon) 1 mg IM PRN PRN PRN Reason: Hypoglycemia Lisinopril/HCTZ (Prinizide 20-25) 1 tab PO DAILY [facility] Last Admin: 04/30/19 08:52 Dose: 1 tab Dextrose/Water (D5w) 1,000 mls @ 0 mls/hr IV .Q0M PRN PRN Reason: Hypoglycemia Sodium Chloride (Normal Saline 0.9%) 1,000 mls @ 65 mls/hr IV .[id number] [facility] Last Admin: 04/29/19 20:30 Dose: 1,000 mls Vancomycin HCl 1 gm/ Device 200 mls @ 200 mls/hr IVPB Q12HR [facility] Last Admin: 04/30/19 08:53 Dose: 200 mls Insulin Human Lispro (Humalog) 0 units SC .MILD SLIDING SCALE PRN PRN Reason: Mild Correctional Scale Insulin Human Lispro (Humalog) 0 units SC .BEDTIME SLIDING SC PRN PRN Reason: Bedtime Correctional Scale Ketorolac Tromethamine (Toradol) 15 mg IVP Q6HR [facility] Stop: 05/04/19 23:59 Last Admin: 04/30/19 05:40 Dose: 15 mg Miscellaneous Medication (Pharmacy To Dose) 1 each IVPB PRN PRN PRN Reason: Pharmacy to dose Ondansetron HCl (Zofran Odt) 4 mg PO Q6H PRN PRN Reason: Nausea/Vomiting Ondansetron HCl (Zofran) 4 mg IVP Q6H PRN PRN Reason: Nausea/Vomiting Sodium Chloride (Flush - Normal Saline) 10 ml IVF Q12HR PRN PRN Reason: Saline Flush Sodium Chloride (Flush - Normal Saline) 10 ml IVF PRN PRN PRN Reason: Saline Flush Tizanidine HCl (Zanaflex) 4 mg PO TID PRN PRN Reason: Muscle Spasm
--- NOTE | 2019-04-30 12:27 | CON ---
DATE OF CONSULTATION: This is Sathish Edmonds PA-C dictating a report for Elgin Delvalle MD. This is a 30-minute initial patient evaluation of which greater than 50% of the exam was spent in counseling and coordinating the patient's care. Remainder of the exam was spent in review of patient's medical records and formulation of treatment plan on Reinier Leone. CHIEF COMPLAINT: Right lower extremity weakness with bilateral lower extremity paresthesias and pain. HISTORY OF PRESENT ILLNESS: Mr. Leone is a pleasant 64-year-old male, who has a history of lung cancer and is receiving weekly infusions of Keytruda. He is status post multilevel thoracolumbar fusion, having undergone fusion with T11 laminectomy for pathologic fracture with Dr. Delvalle on 03/07/2019. The patient states from roughly 2 weeks postop, he has began to experience paresthesias in the right lower extremity, which progressed to pain. He was seen by Dr. Ramos and has a morphine pain pump in place that is MRI compatible. In the past 1 to 2 weeks, he has noticed progressive weakness into the right lower extremity, so severe that he has had a few falls in the past week. He also notes pain into the anterior and posterior legs worse all the way into the feet, worse on the right than the left. He has no incisional pain and unfortunately had some wound dehiscence and the wound was oversewed 3 to 4 weeks ago with dissolvable Dermabond and Monocryl sutures. He states the main lower buttock area especially into the coccyx region as well causes him the most amount of pain and he does have much in the way of incisional thoracic pain. He has been wearing a clamshell TLSO brace. He has not had recent studies of the spine. He did undergo a PET scan that appeared to be negative. PHYSICAL EXAMINATION: The patient is awake, alert, and appropriate. He has good strength in the bilateral upper extremities and has good strength in the left lower extremity. In regard to the right lower extremity, he is antigravity. He does have [id number] strength of the right iliac psoas and quadriceps. He is able to dorsiflexion and plantar flexion. He has some strength in the calf. However, he has difficulty lifting the right leg off the bed. He has decreased sensation to the bilateral lower extremities. He has a Darden catheter in place, but has no difficulty feeling the catheter and denies saddle anesthesia. His thoracic incision is healing well with Monocryl still in place and it is covered with a clean and dry Tegaderm dressing. There is some scabbing throughout the incision, but there is no surrounding redness, swelling, or any signs of obvious infection. IMPRESSION AND DIAGNOSES: 1. Status post multilevel thoracolumbar fusion for T11 pathologic fracture. 2. History of lung cancer on Keytruda infusions. 3. Coccygeal pain with bilateral lower extremity paresthesias. 4. Right leg weakness. 5. Chronic pain managed by Dr. Ramos with morphine pain pump MRI compatible. PLAN: At this time, we need further imaging to determine the source of the patient's pain complaints and weakness. We have therefore ordered thoracic, lumbar, and pelvis MRIs with and without contrast to be done under general anesthesia. The patient's pain is so severe. This limits him lying on his back. We will follow up once these studies have been completed and plan for appropriate treatment once this has been determined. He is appreciative of the workup. We will keep his thoracolumbar incision covered. Please call with any changes in the patient's neurologic status. Otherwise, we will follow up on the studies once completed. Job ID: [id number]
[2019-04-30] MEDS ORDERED: Midazolam HCl 2 mg/2 ml Vial ONE (13:49)
[2019-04-30] MEDS ORDERED: Famotidine/PF 20 mg/2ml Vial ONE (13:50)
[2019-04-30] MEDS ORDERED: Fentanyl 100 MCG/2 ML VIAL ONE (13:50)
[2019-04-30] MEDS ORDERED: Ondansetron HCl/PF 4 MG/2 ML Vial IVP PRN (16:32)
[2019-04-30] MEDS ORDERED: Meperidine HCl/PF 25 MG/ML VIAL SLOW IVP PRN (16:32)
[2019-04-30] MEDS ORDERED: Promethazine HCl 25 MG/ML VIAL SLOW IVP PRN (16:32)
[2019-04-30] MEDS ORDERED: PACU-Morphine 4MG/ML VIAL SLOW IVP PRN (16:32)
[2019-04-30] MEDS ORDERED: Morphine Sulfate 2 MG/ML SYRINGE SLOW IVP PRN (16:32)
[2019-04-30] MEDS ORDERED: Promethazine HCl 25 MG/ML VIAL IM PRN (16:32)
[2019-04-30] MEDS ORDERED: HYDROmorphone 2 MG/ML VIAL SLOW IVP PRN (16:32)
[2019-04-30] MEDS: metFORMIN 500 MG TAB PO SCH (16:51)
[2019-04-30] MEDS: Sodium Chloride 0.9% 1,000 ML IV SCH (16:52)
--- NOTE | 2019-04-30 19:06 | MRI ---
MRI THORACIC SPINE WITH AND WITHOUT CONTRAST: 04/30/19 HISTORY: Metastatic lung cancer. Previously reported pathologic fracture at T11. Interval surgical fusion hard muro placement. COMPARISON: 03/05/19. FINDINGS/IMPRESSION: Limited evaluation of the thoracic vertebral body marrow signal from T9 through upper lumbar spine. R emaining thoracic vertebrae have appropriate signal intensity. There is persistent abnormal marrow si gnal intensity with associated STIR hyperintensity and enhancement at T11 compatible with a patholog ic fracture. There has been interval progression in terms of the loss of vertebral body height. There does appear to be persistent abnormal marrow signal intensity involving the posterior inferior end p late of T9. Visualized mediastinal structures, lung parenchyma are grossly unremarkable. Bilateral pl eural effusions are noted. The visualized solid organs are unremarkable. There is a laminectomy defect at the T11 level. There is abnormal T2 hyperintensity along the central aspect of the cord starting at approximately th e T6 level and extending inferiorly down to the level of the conus medullaris. There is subtle cord e xpansion. No evidence of obvious enhancement. 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 Long segment infarct is a second but less favored consideration. POS: OFF
--- NOTE | 2019-04-30 19:46 | MRI ---
MRI OF LUMBAR SPINE WITH AND WITHOUT CONTRAST 04/30/19 COMPARISON: None. HISTORY: Osseous metastases. Patient has a known lung cancer. FINDINGS: There is metallic susceptibility artifact secondary to transpedicular screws at L1. There is intrinsi c T1 marrow signal hypointensity with associated T2 and STIR hyperintensity and heterogeneous enhance ment involving the right pedicle and posterior vertebral body at L3. There is an intrinsic T1 hypoint ense, T2 hyperintense lesion at L4, compatible with an interosseous hemangioma. Appropriate signal intensity of the visualized paraspinal muscles. There is no abnormal enhancement within the thecal sac including the cauda equina and conus medullari s. There does not appear to be any significant clumping of the nerve roots along the course of the cauda equina. T2 hyperintensity in the left and right renal cortex compatible with cortical cysts. Conus medullaris terminates at the inferior aspect of L1. T11-T12: No significant central canal stenosis. Foramina are patent. L1-L2: No significant central canal stenosis or neural foraminal narrowing. L2-L3: NO significant central canal stenosis. There does appear to be a central/right subarticular an nular fissure with associated disc protrusion. Disc material abuts but does not obscure the traversi ng right L3 nerve root. Right neural foramen is moderately narrowed. Left neural foramen is patent. L3-L4: Adequate disc hydration. No significant central canal stenosis or foraminal narrowing. L4-L5: Adequate disc hydration. Generalized disc bulge with a central disc protrusion. Mild central c anal stenosis. Mild narrowing of the left subarticular zone. No obscuration of the traversing left L5 nerve root. There is bilateral facet hypertrophy with fluid in both facet joints. Mild right and mil d to moderate left foraminal narrowing. L5-S1: Severe loss of disc space height. There is a central/subarticular disc protrusion. Disc materi al abuts but does not obscure the traversing left S1 nerve root. Moderate to severe right and moderat e left foraminal narrowing. There is extensive hypertrophy involving the facets bilaterally at L5-S1. IMPRESSION: 1. Degenerative changes of the lumbar spine as detailed above. 2. Osseous metastases involving the right pedicle and posterior right vertebral body at L3. 1. POS: OFF
[2019-04-30] MEDS: Polyethylene Glycol 3350 17 GM Packet PO SCH (21:02)
[2019-05-01] MEDS: Ketorolac Tromethamine 30 MG/ML VIAL IVP SCH ×4 (00:56→17:06)
[2019-05-01] MEDS: Dexamethasone 4 mg/ml Vial SLOW IVP SCH ×3 (01:04→14:10)
--- NOTE | 2019-05-01 02:23 | CON ---
DATE OF CONSULTATION: 04/30/2019 REASON FOR CONSULTATION: Persistent back pain, inability to walk. 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 Delvalle and also a known lesion at L3. He has had a recent PET scan demonstrating no active cancer. Over the past 4 to 5 weeks, he has had progressive numbness, tingling, and weakness in the right greater than the left leg. He has band type anesthesia numbness-type sensation that would approximate the T6 level and weakness extending down the right leg. This began several weeks ago to a month ago, demonstrating initially as a right L5 radiculitis and now involves all dermatomes in the right leg and myotomes and beginning to affect the left leg as well. He does have some sensation of numbness in the perineum, but that is less marked. He is admitted by Oncology for progressive weakness for further workup. MRI scan has been attempted as an outpatient, but the patient is extremely claustrophobic. We will perform MRI scan in the hospital with Anesthesia consultation. Neurosurgery is also consulted. With respect to his pain management, he has had high dose narcotic analgesia attempting to control his thoracic, lumbar, and chest wall pain. This ultimately failed, and an intrathecal morphine pump was implanted, providing good analgesia with pain scores in the 3 to 5 range at 2 mg intrathecal morphine per day. Current pump concentration is intrathecal morphine with no other adjuvant at 10 mg/mL. PHYSICAL EXAMINATION: GENERAL: The patient is awake, alert, appropriate, in no distress. HEENT: Unremarkable. No nuchal rigidity. CHEST: Unremarkable. He has some mild chest wall tenderness in the right posterior chest, but it is less than I have seen in the past with this patient. ABDOMEN: Soft, nontender, nondistended. BACK: The previous incision is bandaged from the T11 fusion and decompression. I did not remove this. There was no obvious sign of infection around this region. Lumbar spine exam reveals minimal palpable tenderness with exception of the L3 that is noted in my previous examinations. NEUROLOGIC: He is alert, oriented, pleasant. Upper extremity exam reveals trace reflexes bilaterally. No upper extremity weakness or deficits are noted. No significant neck pain or posterior shoulder pain. Lower extremity neurologic exam reveals weakness in all muscle groups in the lower extremity on the right side, especially flexion, hip extensors. Hip flexors 2/5 right -3/5 left Dorsiflexion is absent on the right foot, plantar flexion also absent. Left foot, - 3/5 for both. Straight leg raise test is negative bilaterally. Ammy's exam is negative bilaterally. No significant SI tenderness. Temperature sensation is absent extending up to approximately T7 dermatome level, especially on the right side. Vibratory sensation was not tested. He does have loss of pinprick extending to T7 on examination. Complete sensory loss lower extremity right and partial left. Proprioception also loss bilateral. IMPRESSION: 1. The patient with progressive neurologic deterioration with sensory and motor loss affecting multiple dermatome and myotome levels. He appears to have a thoracic level of anesthesia at approximately T7. Rule out compressive lesion. MRI scan of the thoracic, lumbar, and pelvis has been ordered with Anesthesia consult. These will be with and without contrast. Nonobstructive myelitis is also a possibility. 2. History of sarcoma with lesions as outlined above. Recent PET scan was negative for active disease. 3. 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 4. Chronic pain. Recommend continue his current pump rate at 2 mg/mL. Medtronic programmable pump 20cc. MSO4 10mg/cc 5. History of urinary retention from narcotics, out of proportion what would be expected. The patient likely with prostate hypertrophy. Consider Urology consultation. That problem is stable at present. Job ID: [id number] MTDD
[2019-05-01 05:53] LABS: #Lymphocytes 0.5 thou/uL (1.20-3.40); #Monocytes 0.2 thou/uL (0.11-0.59); #Neutrophils 5.5 thou/uL (1.40-6.50); %Basophils 0.2 % (0.0-1.0); %Eosinophils 0.1 % (0.0-10.0); %Lymphocytes 7.5 % (21.0-51.0); %Monocytes 3.5 % (0.0-10.0); %Neutrophils 88.7 % (42.0-75.0); Hemoglobin 11.5 g/dL (14.0-18.0); Mean Corpuscular HGB CONC 34.1 g/dL (32.0-36.0); Mean Corpuscular Hemoglobin 34.7 pg (27.0-31.0); Mean Platelet Volume 6.5 fL (7.4-10.4); Platelet Count 241 thou/uL (130-400); RBC Distribution Width 12.7 % (11.5-14.5); White Blood Cell (WBC) Count 6.2 thou/uL (4.8-10.8)
[2019-05-01] MEDS: HYDROcodone/Acetaminophen 10/325 mg Tablet PO PRN (06:08)
[2019-05-01 06:11] LABS: Anion Gap 11 mmol/L (10-20); BUN (Urea Nitrogen) 22 mg/dL (8.4-25.7); Calc. Creatinine Clearance 126 mL/min (70-130); Carbon Dioxide 26 mmol/L (23-31); Chloride 101 mmol/L (98-107); Estimated GFR-MDRD Greater than 90; Glucose 153 mg/dL (80-115); Potassium 4.3 mmol/L (3.5-5.1); Sodium 134 mmol/L (136-145)
[2019-05-01] MEDS: Sodium Chloride 0.9% 1,000 ML IV SCH (06:11)
--- NOTE | 2019-05-01 09:50 | PRG ---
DATE OF SERVICE: 05/01/2019 Mr. Leone was admitted for progressive right lower extremity multi-myotomal weakness and difficulty with ambulation. He has also had pain into the right anterior and posterior thigh and also coccygeal pain. Review of thoracic and lumbar MRI demonstrates no evidence of compressive elements leading to his course, although he does have signal abnormality spanning T6 all the way down to the conus. 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 His sedimentation rate and CRP are normal and again there is no evidence of compressive issue here. He did have a gastrointestinal illness right before surgery, perhaps this triggered the transverse myelitis, oftentimes anti-Hu antibodies can be seen in this patient population, oftentimes as well can be very responsive to very high-dose steroid therapy and rehab. I am waiting the report of the MRI of the pelvis to be completed. Sometimes, it can spread from a myelitis down into the plexus, in particular in this patient a right lumbosacral plexus, which could explain his right lower extremity and coccygeal symptoms. I have discussed all of this with him this morning. His exam is as laid out by my colleague, Neida Grey. He is on Decadron, but again, I do not think this is an effective enough dose. He just got his last dose of Keytruda, which is immunomodulation agent for oncologic purposes on Monday and this is every three weeks. He needs a Neurology consultation for this evaluation. Job ID: [id number]
--- NOTE | 2019-05-01 09:53 | MRI ---
MRI PELVIS WITH AND WITHOUT CONTRAST: HISTORY: Coccyx pain. History of lung cancer. COMPARISON: PET CT from 04/26/2019. FINDINGS: Exam is limited due to poor fat saturation. BONES: Given the recent PET CT findings of no metastatic disease, there is sequela of healed metasta sis of the left pubic root, right ilium, left ilium, and right L3 pedicle. No abnormal foci of T1 ma rrow signal replacement to suggest osteomyelitis of the sacrum or of the coccyx. There is an indwelling Darden catheter. The ileocecal valve is markedly T2 hyperintense. There is mild edema of the gluteus musculature and adductor musculature, as well as obturator muscula ture. Flow voids are maintained. Throughout the examination, there is subtle narrowing of the rectosigmoid junction, which has not florecita nged through the entirety of the exam. IMPRESSION: 1. Evidence of healed metastatic disease, given recent PET CT findings. 2. Possibly a mucocele of the terminal ileum/ileocecal valve. Given the recent negative PET CT find ings, this is unlikely a malignant process. 3. Edema throughout the musculature may be post treatment in nature versus third-spacing from cardia c dysfunction. 4. No evidence for osteomyelitis. 5. No evidence for stress fracture. POS: [facility]
[2019-05-01] MEDS: Gabapentin 300 MG CAP PO SCH ×2 (10:07→14:10)
[2019-05-01] MEDS: Polyethylene Glycol 3350 17 GM Packet PO SCH (10:07)
[2019-05-01] MEDS: Lisinopril/Hydrochlorothiazide 20/25 mg Tablet PO SCH (10:07)
[2019-05-01] MEDS: metFORMIN 500 MG TAB PO SCH ×2 (10:07→17:05)
[2019-05-01] MEDS: clonazePAM 0.5 MG TAB PO SCH (10:08)
[2019-05-01] MEDS: Famotidine/PF 20 mg/2ml Vial SLOW IVP SCH (10:08)
[2019-05-01] MEDS: Vancomycin HCl 1 GM in Premix Bag 1 BAG IVPB SCH (10:57)
[2019-05-01] MEDS ORDERED: Senokot 8.6 MG TAB PO PRN (12:04)
[2019-05-01] MEDS: Vancomycin HCl 1.5 GM in Sodium Chloride 0.9% 250 ML 300 ML IVPB SCH (12:08)
--- NOTE | 2019-05-01 13:43 | PRG ---
DATE OF SERVICE: 05/01/2019 SUBJECTIVE: This is hospital day #3 for the patient. He is in followup by the hospitalist. I have not seen in several months. I will have to review his treatment up to this point. My understanding is he has had 2 recent PET scans, which were unremarkable. He states he is in remission. He recently had a lumbar surgery by Dr. Delvalle. Following this, he developed leg pain. At this time, he is barely able to move his right leg and his left leg is also in significant pain, but he is able to use his left leg. He has also had some surgical wound drainage, which has improved. Yesterday, he had MRIs of the pelvis and T-spine and L-spine. This is presently under review by Dr. Delvalle and Dr. Ramos. His main issue is pain control. OBJECTIVE: VITAL SIGNS: Temperature 97.5, pulse 78, respirations 18, pulse ox 97%, and blood pressure 93/57. GENERAL: The patient is relatively pleasant. He states from the wake up he is doing just fine issue. HEART: Regular rate and rhythm. LUNGS: Clear. ABDOMEN: Soft and nontender. EXTREMITIES: Barely able to move his right leg. He has full range of motion of his left leg. He has bilateral pain in none of both legs. LABORATORY DATA: White count 6.2, hemoglobin and hematocrit of 11 and 33. Electrolytes; sodium 134, potassium 4.3, creatinine 0.56, BUN 22, and blood sugar 150, 150, and 153. ASSESSMENT: 1. Lower extremity radiculopathy. 2. Chronic intractable back pain secondary to T11 and L3 spinal lesions. 3. Nonambulatory secondary to #1. 4. 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 5. Hypertension. 6. Hyperlipidemia. 7. Diabetes. PLAN: 1. Dr. Delvalle and Dr. Ramos review the MRIs. 2. Need to identify the source of the patient's weakness and leg pain. I will discuss with Dr. Ramos and Dr. Delvalle. 3. We will continue to follow along. 4. We will also discuss with Dr. Elkins. 5. At this time, he is a DNR status. Job ID: [id number]
--- NOTE | 2019-05-01 16:47 | PRG ---
DATE OF SERVICE: SUBJECTIVE: The patient is alert, oriented, pleasant. He is in no distress. Discussed with him the findings of the MRI scan of his thoracic, lumbar, and sacral regions. Await Neurology input. He is in little to no pain at present. We will continue his current intrathecal morphine dose at 2 mg per day. We may slowly titrate this downward as tolerated, but I do think he will continue to require analgesics. OBJECTIVE: Alert, oriented, pleasant. Neurologic exam without changed. IMPRESSION: 1. Myelitis, radiation versus inflammatory etiology. Neurology to evaluate and treat. If the patient requires a lumbar puncture, consider performing under fluoroscopy to prevent damaging his intrathecal catheter. 2. Interrogation of the intrathecal pump. After MRI scan was performed yesterday and again today, the pump is functioning properly and will require no further evaluation. Job ID: [id number]
--- NOTE | 2019-05-01 17:25 | CON ---
DATE OF CONSULTATION: 05/01/2019 REASON FOR CONSULTATION: Mr. 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 I was asked to see him to discuss whether the patient has radiation myelopathy. HISTORY OF PRESENT ILLNESS: Mr. Leone is well known to me. In October, he was diagnosed with metastatic sarcomatoid carcinoma of the lung. At that time, he had several areas of painful bony metastases including T9 rib and T11 vertebral body metastasis as well as an L3 paravertebral metastasis. He underwent palliative radiation therapy to 30 Gy in 10 fractions to chacon, which included the T9 through T12 vertebral bodies as well as chacon, which included the L2 through L4 vertebral bodies. This was because of his back pain. He had excellent palliative response to his therapy, although still had residual pain after his treatment. He was then started on chemotherapy, which included Keytruda for management of his systemic disease. In December of 2018, he had palliative radiation therapy to the left humerus because of an impending pathological fracture. He tolerated all that therapy well. In late February, because of a compression fracture at T11 and instability of T11, he underwent placement of rods to stabilize T11 vertebral body as well as a laminectomy for decompression of T11. Neurologically, he is intact. Most recently, he had a PET scan, which showed no evidence of hypermetabolic activity and thus, he was felt to be in complete remission. He has been seeing Dr. Ramos. The patient reports that about two weeks after his surgery, he began experiencing some numbness and weakness in the right leg. This has gradually been more progressive and over the past week, he has had difficulty moving the right leg at all. He has had to use the wheelchair. For the past four weeks, he has had weakness in the left leg and some numbness in the left leg. He then for several days was not able to urinate and subsequently was admitted to the hospital for further workup and evaluation. He had a Darden catheter placed. He has been having bowel movements because of the use of MiraLAX. He has been seeing Dr. Ramos and for the most part, his pain has been managed. He denies any new areas of pain. He has no headaches or shortness of breath. He voices no other complaints. PAST MEDICAL HISTORY: 1. Lung cancer as mentioned above. 2. Diabetes. 3. Hypertension. 4. Hypercholesterolemia. 5. History of kidney stones. 6. History of prostatitis. 7. History of herniated disks with injections in the past. 8. Status post hernia repair. ALLERGIES: NO KNOWN MEDICAL ALLERGIES. MEDICATIONS: 1. Dexamethasone. 2. Klonopin. 3. Pepcid. 4. Neurontin. 5. Morley. 6. Insulin. 7. Toradol. 8. Lisinopril/hydrochlorothiazide. 9. Metformin. 10. MiraLAX p.r.n. 11. Zofran p.r.n. 12. Tizanidine p.r.n. SOCIAL HISTORY: The patient is and lives with his . He briefly smoked for two years when he was young, but has not smoked cigarettes for many years. He has no alcohol use. 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 FAMILY HISTORY: His mother at age 80 from lung cancer. His father at age 84 from complications of diabetes and heart disease. He had a paternal grandmother with cancer at age 80, the type of which is unknown to him. He also had a paternal uncle who had cancer, the type of which is unknown to him. There is no other family history of malignancy. REVIEW OF SYSTEMS: A 12-system review of systems is otherwise negative. PHYSICAL EXAMINATION: VITAL SIGNS: Height 5 feet 11 inches, weight 151 pounds, blood pressure 109/70, pulse is 77, respirations are 18, temperature is 97.5, and O2 saturation is 97% on room air. CONSTITUTIONAL: He is alert and oriented and in no apparent distress. He is well developed and well nourished. Karnofsky performance status is 40% because he is mostly confined to the bed. EYES: Pupils equal, round, and reactive to light. EOMs are intact. ENT: Oral cavity and oropharynx revealed no lesion or erythema. Palate elevates symmetrically. Gingiva is intact. NECK: Supple without cervical or supraclavicular adenopathy. No thyromegaly. Larynx midline. LUNGS: Breathing nonlabored. Clear to auscultation and percussion. CARDIOVASCULAR: Heart, regular and rhythm without murmur. No lower extremity edema. BACK: Some mild tenderness on percussion of his mid to lower thoracic spine region. LYMPHATIC: No axillary or inguinal adenopathy. ABDOMEN: Bowel sounds present. Soft, nontender, nondistended without mass or hepatosplenomegaly. Liver percusses to normal size. NEUROLOGIC: Cranial nerves 2 through 12 are grossly intact. Motor strength is 5/5 in both upper extremities in all muscle groups tested. In his lower extremities, he has considerable weakness, right greater than left. His right leg, he is able to move a little side to side, but cannot lift it off the bed. He has no dorsiflexion or plantarflexion in the right foot. Left foot has dorsiflexion and plantarflexion that are 4/5. He is able to lift the leg off the bed with some resistance, but fairly mild. Reflexes are symmetrical. Gait was not able to be tested. DIAGNOSTIC DATA: Radiologic MRI of the thoracic and lumbar spine was performed and personally reviewed. He does have some cord signal changes that extends from T6 all the way through the conus. This is in the central cord. There does not appear to be any enhancing lesion in this area. He still appears to have metastatic involvement of T11. He has some involvement of L3. The PET scan performed on 04/26/2019 showed no evidence of hypermetabolic activity. LABORATORY DATA: His CBC revealed a white blood cell count of 6,200 with hemoglobin of 11.5, hematocrit of 33.6, platelet count of 241,000. Chemistry group revealed fairly normal appearing electrolytes. Creatinine is 0.56. Calcium is 9.0. ASSESSMENT: Mr. Leone is a 64-year-old gentleman with a previously known history of metastatic sarcomatoid carcinoma of the lung, who now presents with myelopathy type of symptoms of unknown etiology. He has spinal cord changes essentially from T6 through the lower part of the spinal cord that was felt by Radiology to represent radiation myelopathy. Other possibilities include long segment infarct of the spinal cord versus some type of infectious etiology. PLAN: I am very skeptical that this represents radiation myelopathy. I have reviewed his radiation records and the dose that he received to his spinal cord was 30 Gy in 10 fractions, which would be considered to have a low risk of myelopathy. The risks of myelopathy from radiation should be less than 1%. 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 Additionally, the cord signal changes extend above and below the radiation treatment chacon, which would also argue that the changes are not from myelopathy. There is with radiosurgery in the brain, a known increased risk of necrosis with ultrahigh doses of radiation and Keytruda, but to my knowledge, there is no increased risk of myelopathy with standard fractionated doses of radiation therapy and Keytruda. Thus, given the fact that the signal changes are more extensive than his radiation chacon and given the dose of radiation to the spinal cord, I think radiation myelopathy is unlikely. I would be much more concerned about possible spinal cord infarction versus even an infectious etiology. Dr. Delvalle has suggested high-dose steroid and I am in agreement with that. He has also suggested a neurology consult and I think that is reasonable and the lumbar puncture may even need to be considered to rule out other etiologies. In the end, there may not be much that we can do for treatment other than the high dose steroids. All of this was discussed with Mr. Leone and with his . I will continue to monitor his case with you. Thank you for this interesting consultation. Job ID: [id number]
[2019-05-01] MEDS ORDERED: HumaLOG 300 UNITS/3 ML VIAL ONE (23:24)
[2019-05-01] MEDS ORDERED: Ketorolac Tromethamine 30 MG/ML VIAL ONE (23:24)
[2019-05-01] MEDS ORDERED: Acetaminophen 500 MG TAB ONE (23:25)
[2019-05-02] MEDS ORDERED: Ketorolac Tromethamine 30 MG/ML VIAL ONE (05:49)
[2019-05-02] MEDS: Lisinopril/Hydrochlorothiazide 20/25 mg Tablet PO SCH (09:34)
[2019-05-02] MEDS: Polyethylene Glycol 3350 17 GM Packet PO SCH ×3 (09:34→20:36)
[2019-05-02] MEDS: metFORMIN 500 MG TAB PO SCH ×2 (09:35→17:33)
[2019-05-02] MEDS: clonazePAM 0.5 MG TAB PO SCH ×3 (09:35→20:33)
[2019-05-02] MEDS: Gabapentin 300 MG CAP PO SCH ×4 (09:35→20:34)
[2019-05-02] MEDS: Docusate 100 MG CAP PO SCH ×3 (09:36→20:34)
[2019-05-02] MEDS: methylPREDNISolone Sod Succ/PF 125 MG/2 ML VIAL IVP SCH ×3 (09:36→20:35)
[2019-05-02] MEDS: Famotidine/PF 20 mg/2ml Vial SLOW IVP SCH ×3 (09:36→20:32)
[2019-05-02] MEDS: HYDROcodone/Acetaminophen 10/325 mg Tablet PO PRN ×2 (09:47→20:43)
[2019-05-02] MEDS: Vancomycin HCl 1.5 GM in Sodium Chloride 0.9% 250 ML 300 ML IVPB SCH ×3 (11:02→20:44)
[2019-05-02] MEDS: Sodium Chloride 0.9% 1,000 ML IV SCH ×2 (11:13→12:13)
[2019-05-02] MEDS: Ketorolac Tromethamine 30 MG/ML VIAL IVP SCH ×3 (11:15→20:30)
[2019-05-02] MEDS: HumaLOG 300 UNITS/3 ML VIAL SC PRN ×2 (12:10→17:34)
--- NOTE | 2019-05-02 12:20 | PRG ---
DATE OF SERVICE: 05/02/2019 This is a 50-minute subsequent patient evaluation, in which greater than 50% of the exam was spent in counseling and coordinating the patient's care. Remainder of the exam was spent in review of the patient's medical records and formulation of treatment plan. Mr. Leone is hospital day #2 having sustained bilateral lower extremity paresthesias with right leg weakness. Per Neurosurgery review of the patient's MRIs, there is a suspect transverse myelitis, which is perhaps related to paraneoplastic syndrome. Neurology was supposed to see the patient yesterday. From neurosurgical standpoint, there is no type of neurosurgery recommended. Mr. Leone has been on steroids, but has had no significant improvement in his paresthesias or right leg weakness. He does not complain much in the way of thoracic back pain, but does have continued coccygeal area pain. Further, there was a question of lumbar puncture, but this is to be discussed by the patient's medical team including Oncology and Dr. Ramos as the patient does have a morphine pain pump in place. We will defer the possibility of a lumbar puncture to their team. The patient in addition to receiving steroids may likely improve with IVIG and plasmapheresis to again help with his paresthesias and weakness. Please call with any changes in the patient's neurologic status, otherwise he continues with [id number] weakness and myotomes of the right lower extremity with decreased sensation to light touch throughout the bilateral lower extremities. He has good strength in the left lower extremity. He states he attempted to stand yesterday, but given his right leg weakness, he was unable to do so. Neurosurgery will sign off at this time, but please call with any changes in the patient's neurologic status. Job ID: [id number]
[2019-05-02 14:15] LABS: %Eosinophils 0.1 % (0.0-10.0); %Lymphocytes 8.2 % (21.0-51.0); %Neutrophils 88.7 % (42.0-75.0); Hemoglobin 12.6 g/dL (14.0-18.0); Mean Corpuscular HGB CONC 34.5 g/dL (32.0-36.0); Mean Corpuscular Hemoglobin 35.2 pg (27.0-31.0); Mean Platelet Volume 6.8 fL (7.4-10.4); Platelet Count 234 thou/uL (130-400); RBC Distribution Width 12.8 % (11.5-14.5); Red Blood Cell (RBC) Count 3.58 mill/uL (4.70-6.10); White Blood Cell (WBC) Count 7.1 thou/uL (4.8-10.8)
[2019-05-02 14:16] LABS: #Lymphocytes 0.6 thou/uL (1.20-3.40); #Monocytes 0.2 thou/uL (0.11-0.59); #Neutrophils 6.3 thou/uL (1.40-6.50)
[2019-05-02 14:29] LABS: Anion Gap 9 mmol/L (10-20); BUN (Urea Nitrogen) 24 mg/dL (8.4-25.7); Calc. Creatinine Clearance 128 mL/min (70-130); Carbon Dioxide 27 mmol/L (23-31); Chloride 101 mmol/L (98-107); Estimated GFR-MDRD Greater than 90; Potassium 4.3 mmol/L (3.5-5.1); Sodium 133 mmol/L (136-145); Vancomycin, Random 18.6 ug/mL (See Comment)
[2019-05-02 14:30] LABS: Calcium 9.2 mg/dL (7.8-10.44); Glucose 152 mg/dL (80-115)
[2019-05-02 19:24] VITALS: BP 121/74; TEMP 98.3
[2019-05-02 21:26] LABS: Vancomycin, Trough 13.4 ug/mL
--- NOTE | 2019-05-02 22:48 | CON ---
DATE OF CONSULTATION: 05/02/2019 CONSULTING PHYSICIAN: Hospitalist service. IMPRESSION: Extensive area of cord edema involving T6 down to the conus suggesting either viral versus autoimmune process resulting in secondary paraplegia. The patient is being moved to [place] for further evaluation and treatment. HISTORY OF PRESENT ILLNESS: Mr. Leone is a 64-year-old man who has been followed by Dr. Elkins for some type of multiple bony lesion disease. Apparently, his biopsy of one of the rib lesions was benign. He underwent lumbar surgery with Dr. Delvalle about 6 weeks ago. Two weeks postoperatively, he started experiencing some numbness in his right thigh as it progressed and spread to more diffuse numbness. He lost strength in his leg. It seems to take several days, this has progressed on. He came into the hospital for evaluation. His MRI of the lumbar spine was unremarkable. MRI of the thoracic spine showed extensive lesion. He is unable to move the right leg at this point. He still has antigravity strength on the left. PAST MEDICAL HISTORY: As noted above. ALLERGIES: PER CHART. SOCIAL HISTORY: No tobacco or alcohol. FAMILY HISTORY: Noncontributory. REVIEW OF SYSTEMS: Ten-system review of systems is otherwise unremarkable. PHYSICAL EXAMINATION: GENERAL: He is a healthy-appearing, middle-aged man, lying in bed, in no distress. VITAL SIGNS: Have been stable. He is afebrile. HEENT: Pupils are equal. Conjunctivae are clear. Oropharynx is clear. NECK: Supple. EXTREMITIES: No cyanosis or edema. NEUROLOGIC: He is alert, appropriate. His speech is fluent and clear. Cranial nerves are intact. Motor exam shows some flaccid right lower extremity. He has antigravity strength in the left leg. Sensation is subjectively absent in his right leg completely and partially in the left. Gait is not testable. No abnormal movements are seen. SUMMARY: Subacute transverse myelitis of undetermined etiology. Considerations would be a paraneoplastic syndrome versus autoimmune including NMO and MOG antibody type versus viral including HTLV-1 would be considerations. I would typically start Solu-Medrol 1 g daily for 3 days and then a tapering prednisone dose, gabapentin for pain control and such. I will be happy to follow up with him when he returns from [place]. Job ID: [id number]
--- NOTE | 2019-05-03 04:49 | DIS ---
DATE OF ADMISSION: 04/29/2019 DATE OF DISCHARGE: 05/02/2019 DISCHARGE DIAGNOSES: 1. Lower extremity radiculopathy, rule out transverse myelitis of the thoracic spine. 2. Metastatic sarcomatoid cancer with metastases to liver, lung, and bone. 3. Hypertension. 4. Hyperlipidemia. 5. Diabetes. 6. Nonambulatory. 7. Chronic intractable back pain secondary to T11 and L3 spinal lesions. BRIEF HISTORY: This is a 64-year-old white male who presented with leg weakness. The patient's history actually begins in September 2018. He was beginning to experience back pain. The back pain became severe and on October 14, presents to the ER, where the workup revealed a right L3 transverse process soft-tissue mass. Several biopsies were taken and finally the specimen to the [facility] and the patient was diagnosed with a sarcomatoid type metastatic cancer. He has been followed by Dr. Elkins and undergone chemotherapy and the latest treatment involved Keytruda. On 03/07/2019, he was seen by Dr. Delvalle and for intractable back pain and underwent a T9-L1 instructor instrumented stabilization with screws to that area. He also underwent a T11 laminectomy for decompression of the cord. He did well following this procedure. Over the past 3 weeks he has presented with increasing leg weakness to the point to where he could no longer walk. HOSPITAL COURSE: The patient had numbness and paresthesias of his lower extremities with motor weakness. The right leg is worse than the left. He was unable to ambulate at all on his right leg. He had minimal movement of his right leg and he was able to move his left leg. Scans were obtained. The thoracic spine revealed an abnormal area of the T11 vertebral body revealing a pathologic fracture. There was also in particular hyperintensity type area of the spinal cord involving T2 through T6 and extending inferiorly down to the conus medullaris. A lumbar MRI also reviewed various areas of disk protrusions. See reports. The patient was seen by Dr. Delvalle, neurosurgery, as well as Dr. Ivette Elkins and Dr. Ramos pain management. The patient was started on steroids. However, the patient's condition has not been improving. Therefore, the patient is being referred to a higher level of care. The and patient have been very understanding and are eager for the transfer. See labs and reports. Job ID: [id number]
== END 2019-05-02 21:45 | disposition short-term general hospital (02) | DRG 98 ==
LOC: OBSVTOIN 15:35 → T4-A 15:35
PROVIDERS: ADMIT Family Medicine; ATTEND Family Medicine
DX: G37.3 Acute transverse myelitis in demyelinating disease of central nervous system (principal); G83.4 Cauda equina syndrome; C34.90 Malignant neoplasm of unspecified part of unspecified bronchus or lung; C78.7 Secondary malignant neoplasm of liver and intrahepatic bile duct; C79.51 Secondary malignant neoplasm of bone; Z66 Do not resuscitate; R33.9 Retention of urine, unspecified; E11.9 Type 2 diabetes mellitus without complications; I10 Essential (primary) hypertension; D72.819 Decreased white blood cell count, unspecified; D53.9 Nutritional anemia, unspecified; G89.29 Other chronic pain; E78.5 Hyperlipidemia, unspecified; Z95.1 Presence of aortocoronary bypass graft; Z88.5 Allergy status to narcotic agent
CPT/HCPCS: 36415; 36416; 72157; 72158; 72197; 78815; 80048; 80202; 81001; 82565; 83605; 84443; 85025; 85652; 86140; 87040; A9552; J1100; J1885; J2250; J2930; J3010; J3370; J7050; S0028

== ENCOUNTER 2019-07-21 17:30 | Emergency (ER) | payer MEDICARE, OTHER ==
[2019-07-21 17:54] LABS: #Eosinphils 0.1 thou/uL (0.0-0.7); #Lymphocytes 1.1 thou/uL (1.20-3.40); #Monocytes 0.7 thou/uL (0.11-0.59); #Neutrophils 4.2 thou/uL (1.40-6.50); %Basophils 0.1 % (0.0-1.0); %Eosinophils 1.6 % (0.0-10.0); %Lymphocytes 17.6 % (21.0-51.0); %Monocytes 12.1 % (0.0-10.0); %Neutrophils 68.6 % (42.0-75.0); Mean Corpuscular HGB CONC 33.6 g/dL (32.0-36.0); Mean Corpuscular Hemoglobin 33.3 pg (27.0-31.0); Mean Corpuscular Volume 99.1 fL (78.0-98.0); Platelet Count 361 thou/uL (130-400); RBC Distribution Width 13.7 % (11.5-14.5); Red Blood Cell (RBC) Count 3.31 mill/uL (4.70-6.10); White Blood Cell (WBC) Count 6.1 thou/uL (4.8-10.8)
[2019-07-21 18:13] LABS: Anion Gap 11 mmol/L (10-20); BUN (Urea Nitrogen) 12 mg/dL (8.4-25.7); Calc. Creatinine Clearance 0 mL/min (70-130); Carbon Dioxide 30 mmol/L (23-31); Chloride 97 mmol/L (98-107); Estimated GFR-MDRD Greater than 90; Glucose 115 mg/dL (80-115); Potassium 3.7 mmol/L (3.5-5.1); Sodium 134 mmol/L (136-145)
[2019-07-21 19:57] LABS: Bilirubin Negative (Negative); Blood, Urine Trace (Negative); Glucose, Urine (Dipstick) Negative (Negative); Leukocyte Moderate (Negative); Nitrite Positive (Negative); Protein, Urine (Dipstick) Trace mg/dL (Neg-Trace)
[2019-07-21 20:00] LABS: Bilirubin Negative (Negative); Blood, Urine Negative (Negative); Clarity Turbid (Clear); Glucose, Urine (Dipstick) Normal (Negative); Leukocyte Negative Leu/uL (Negative); Nitrite 2+ (Negative); Protein, Urine (Dipstick) Negative (Neg-Trace); RBC/HPF 0-3 HPF (0-3); Squamous Epithelial None Seen HPF (0-3); Urobilinogen Normal mg/dL (Less than 2)
[2019-07-21 20:12] LABS: Clarity Opaque (Clear)
[2019-07-21 20:18] LABS: Bacteria/HPF 3+ HPF (None Seen)
[2019-07-21 20:21] LABS: Bacteria/HPF 2+ HPF (None Seen); RBC/HPF 0-3 HPF (0-3); Squamous Epithelial None Seen HPF (0-3); Transitional Epithelial 0-3 HPF (None Seen); WBC/HPF 0-3 HPF (0-3); Yeast-Hyphae 1+ HPF (None Seen)
[2019-07-21 20:22] LABS: Renal Epithelial 0-3 HPF (None Seen)
[2019-07-21 20:23] LABS: Calcium Oxalate Crystals 1+ HPF (None Seen)
== END 2019-07-21 20:40 | disposition home or self-care (01) ==
LOC: ERS 17:30
DX: T83.098A Other mechanical complication of other urinary catheter, initial encounter (principal); E11.9 Type 2 diabetes mellitus without complications; I10 Essential (primary) hypertension; E78.5 Hyperlipidemia, unspecified; N40.0 Benign prostatic hyperplasia without lower urinary tract symptoms; Z79.899 Other long term (current) drug therapy; Z85.118 Personal history of other malignant neoplasm of bronchus and lung; Z79.84 Long term (current) use of oral hypoglycemic drugs
CPT/HCPCS: 36415; 51702; 80048; 81003; 81015; 85025; 87077; 87086; 87186

== ENCOUNTER 2019-07-24 09:28 | Outpatient (CLI) | payer MEDICARE, OTHER ==
--- NOTE | 2019-07-24 10:05 | RAD ---
EXAM: XR Pelvis AP STANDARD PROVIDED CLINICAL HISTORY: Osteomyelitis. COMPARISON: PET/CT exam on 04/26/2019 FINDINGS: A metallic device again overlies the left lower quadrant. Multiple phleboliths overlie the left hemip сергей. Degenerative changes are seen in the lower lumbar spine. No lytic or sclerotic osseous lesion is iden tified. The sclerotic densities seen in the left iliac bone on prior PET CT scan exam are not well delineated on this study. No obvious sclerotic or lytic lesion is seen. IMPRESSION: 1. No acute osseous abnormality. 2. No osseous destruction is seen. Depending on clinical concern, MRI may be helpful for further eval uation of presumed osteomyelitis.
== END 2019-07-24 09:29 | disposition home or self-care (01) ==
LOC: RAD 09:28
PROVIDERS: ATTEND Family Medicine
DX: L89.159 Pressure ulcer of sacral region, unspecified stage (principal)
CPT/HCPCS: 72170

== ENCOUNTER 2019-07-24 09:47 | Outpatient (CLI) | payer MEDICARE, OTHER ==
--- NOTE | 2019-07-24 13:07 | HP ---
HISTORY OF PRESENT ILLNESS: Mr. Reinier Leone is a very pleasant 64-year-old gentleman, accompanied by his spouse, who [facility] for evaluation of a sacral pressure ulceration. The patient's states that the ulceration developed during his first admission to [facility] after referral to [facility] by Dr. Elkins in April of this year. The patient was subsequently treated in multiple facilities and was last admitted to [facility] in [place]. Upon discharge from [facility] in [place], the patient was referred to the [facility] Center for further evaluation and treatment. The patient's states that she has been dressing the sacral wound with Iodoflex. She states that her has had evaluation by Plastic Surgery and no flap was recommended. The patient's history is significant for metastatic sarcomatoid CA with metastases to the liver, lung, and bone. The patient patient's states that Mr. Leone is presently in remission. PAST MEDICAL HISTORY: 1. Hypertension. 2. Nephrolithiasis. 3. Diabetes mellitus. 4. Metastatic sarcomatoid CA with metastases to the liver, lung, and bone. 5. Intractable back pain. PAST SURGICAL HISTORY: 1. Varicocele repair. 2. Left inguinal herniorrhaphy. 3. Lymph node biopsy, third grade. 4. Lumbar surgery for herniated disk. 5. T9 rib biopsy. 6. Mediport placement. 7. Intrathecal pain pump placement. 8. Surgery for T11 pathologic fracture. MEDICATIONS: 1. Metformin. 2. Probiotics. 3. Multivitamin. 4. Zinc. 5. Iron. 6. P.o. antibiotics. ALLERGIES: NO KNOWN DIAGNOSED ALLERGIES. SOCIAL HISTORY: Social history is significant for tobacco use in the teenage years. Social history is negative for EtOH use. FAMILY HISTORY: Family history is significant for diabetes mellitus. The patient's father was diagnosed with diabetes mellitus. PHYSICAL EXAMINATION: VITAL SIGNS: Temperature 98.2, pulse 95, respirations 20, blood pressure 105/57. GENERAL: A 64-year-old gentleman, lying on stretcher in examination room, in no acute distress. HEENT: Normocephalic and atraumatic. NECK: No nuchal rigidity. CHEST: Clear to auscultation. CV: Regular rate and rhythm. ABDOMEN: Soft. EXTREMITIES: No clubbing or cyanosis. BACK: A sacral wound is present, which measures approximately 3.8 x 3.5 cm. Granulation tissue is present within the wound margins. Nonviable tissue present within the wound margins is debrided with an excisional full-thickness debridement with the use of scissors. No purulent drainage is associated with the wound. No maceration of the skin of the periwound is noted. Bone is palpable within the wound margins on exam today. : A Darden catheter is in place. ASSESSMENT AND PLAN: 1. Sacral wound as described above. Dressing changes of Iodoflex will be continued on a daily basis after cleansing and irrigation with the assistance of Home Health. Plain films of the pelvis will be obtained today to look for findings suggestive of osteomyelitis. I will see Mr. Leone again in 2 to 4 weeks. The patient and his understand and are in agreement with the preceding treatment plan. 2. Hypertension. 3. Nephrolithiasis. 4. Diabetes mellitus. Accu-Cheks will be obtained at the time of the patient's clinic visits. The patient has been told that for optimal wound healing, his blood glucoses should remain below 150. 5. Metastatic sarcomatoid cancer with metastases to liver, lung, and bone. The patient is presently in remission. 6. Intractable back pain. Job ID: [id number]
[2019-07-24] MEDS ORDERED: Sodium Chloride 0.9% 15 ML NEB ONE (15:00)
== END 2019-07-24 09:48 | disposition home or self-care (01) ==
LOC: WCC 09:47
PROVIDERS: ATTEND Family Medicine
DX: L89.159 Pressure ulcer of sacral region, unspecified stage (principal); I10 Essential (primary) hypertension; N20.0 Calculus of kidney; E11.9 Type 2 diabetes mellitus without complications; C80.1 Malignant (primary) neoplasm, unspecified; C78.7 Secondary malignant neoplasm of liver and intrahepatic bile duct; C78.00 Secondary malignant neoplasm of unspecified lung; C79.51 Secondary malignant neoplasm of bone; M54.9 Dorsalgia, unspecified
CPT/HCPCS: 36416; A4218

== ENCOUNTER 2019-08-13 23:57 | Inpatient (IN) | payer MEDICARE, OTHER ==
[2019-08-14 00:40] LABS: #Eosinphils 0.2 thou/uL (0.0-0.7); #Lymphocytes 1.1 thou/uL (1.20-3.40); #Monocytes 0.7 thou/uL (0.11-0.59); #Neutrophils 6.8 thou/uL (1.40-6.50); %Basophils 0.3 % (0.0-1.0); %Eosinophils 1.9 % (0.0-10.0); %Lymphocytes 12.6 % (21.0-51.0); %Monocytes 7.4 % (0.0-10.0); %Neutrophils 77.8 % (42.0-75.0); Hemoglobin 12.2 g/dL (14.0-18.0); Mean Corpuscular HGB CONC 33.7 g/dL (32.0-36.0); Mean Corpuscular Hemoglobin 31.6 pg (27.0-31.0); Mean Corpuscular Volume 93.7 fL (78.0-98.0); Mean Platelet Volume 6.2 fL (7.4-10.4); Platelet Count 348 thou/uL (130-400); RBC Distribution Width 13.9 % (11.5-14.5); Red Blood Cell (RBC) Count 3.86 mill/uL (4.70-6.10); White Blood Cell (WBC) Count 8.7 thou/uL (4.8-10.8)
[2019-08-14 00:59] LABS: ALT (SGPT) 8 U/L (8-55); AST (SGOT) 13 U/L (5-34); Acetaminophen Less than 6.0 mcg/mL (10.0-30.0); Albumin 3.8 g/dL (3.4-4.8); Alcohol Less than 10 mg/dL (Less than 10); Alkaline Phosphatase 49 U/L (40-110); Anion Gap 12 mmol/L (10-20); BUN (Urea Nitrogen) 10 mg/dL (8.4-25.7); Bilirubin, Total 0.5 mg/dL (0.2-1.2); Calc. Creatinine Clearance 0 mL/min (70-130); Calcium 10.1 mg/dL (7.8-10.44); Carbon Dioxide 29 mmol/L (23-31); Chloride 94 mmol/L (98-107); Estimated GFR-MDRD Greater than 90; Globulin 2.5 g/dL (2.4-3.5); Glucose 108 mg/dL (80-115); Potassium 4.2 mmol/L (3.5-5.1); Protein, Total 6.3 g/dL (5.8-8.1); Salicylate Less than 8.0 mg/dL (15.0-30.0); Sodium 131 mmol/L (136-145)
[2019-08-14 03:15] LABS: Bacteria/HPF 1+ HPF (None Seen); Bilirubin Negative (Negative); Blood, Urine Negative (Negative); Clarity Turbid (Clear); Glucose, Urine (Dipstick) Normal (Negative); Leukocyte 250 Leu/uL (Negative); Nitrite Negative (Negative); Protein, Urine (Dipstick) 10 mg/dL (Neg-Trace); RBC/HPF 0-3 HPF (0-3); Squamous Epithelial 0-3 HPF (0-3); Urobilinogen Normal mg/dL (Less than 2); WBC/HPF 21-50 HPF (0-3)
[2019-08-14 03:21] LABS: Amphetamine Not Detected (NotDetected); Barbiturates Screen Not Detected (NotDetected); Benzodiazepine Screen Not Detected (NotDetected); Cocaine Metabolite Screen Not Detected (NotDetected); Medtox Control Line Valid? VALID (VALID); Medtox Reader # READER 4; Methadone Not Detected (NotDetected); Methamphetamine Not Detected (NotDetected); Opiate Screen Detected (NotDetected); Oxycodone Screen Not Detected (NotDetected); Phencyclidine (PCP) Not Detected (NotDetected); THC/Cannabinoid Screen Not Detected (NotDetected); Tricyclic Screen Not Detected (NotDetected)
[2019-08-14] MEDS ORDERED: cefTRIAXone\\ROCEPHIN 1 GM VIAL ONE (03:37)
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
[2019-08-14 12:29] VITALS: BMI 21.5
[2019-08-14] MEDS ORDERED: cefTRIAXone\\ROCEPHIN 1 GM in Sodium Chloride 0.9% 100 ML IVPB SCH (15:00)
[2019-08-14] MEDS: Famotidine 20 MG TAB PO SCH (20:24)
[2019-08-14] MEDS: metFORMIN 500 MG TAB PO SCH (20:24)
--- NOTE | 2019-08-14 22:02 | HP ---
CHIEF COMPLAINT: Altered mental status. HISTORY OF PRESENT ILLNESS: The patient is a 64-year-old male, who presents to the hospital by family for change in mental status. The patient's is at the bedside, stated that the patient is a paraplegic. He has been having frequent urinary tract infections and last night got very confused and was trying to get out of bed. At this time, she called her [id number], who then called the EMS. According to the patient's , he has a chronic Darden catheter and has had multiple urinary tract infections. He just finished his dose of ciprofloxacin yesterday. She denies any history of any dementia. 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 However, currently according to the patient's family, it is in remission. I did investigate in terms of why he is paraplegic. According to the family, it seems that it is an unclear etiology, possible autoimmune cause of his paraplegic. The patient has been worked up with Neurology at [facility]. The patient currently is awake, alert, and oriented x3. PAST MEDICAL HISTORY: 1. He has a history of hypertension. 2. Diabetes. 3. Nephrolithiasis. 4. Metastatic sarcomatoid cancer. However, this is in remission per family and history of back pain. PAST SURGICAL HISTORY: 1. He has had a varicocele repair. 2. Left inguinal hernia repair. 3. Lymph node biopsy, third grade. 4. T9 rib biopsy. 5. MediPort placement. 6. Intrathecal pain pump. 7. Surgery of T11 pathological fracture. 8. Lumbar surgery with herniated disk. MEDICATIONS: He is taking, 1. Metformin. 2. Probiotic. 3. Multivitamin. 4. Zinc. 5. Iron. 6. He was on Cipro, which has been discontinued. ALLERGIES: HE HAS NO KNOWN DRUG ALLERGIES. SOCIAL HISTORY: According to the family, no alcohol use, no drug use. Has a history of smoking as a teenager. He is a full code. Lives with his family. FAMILY HISTORY: History of diabetes. Father was diagnosed with diabetes. PHYSICAL EXAMINATION: VITAL SIGNS: As of the following; temperature of 97.8, heart rate 97, respirations 16, oxygen saturations 95% on room air, blood pressure 116/71. GENERAL: He is awake, alert, and oriented x3. Does not appear in any distress. HEENT: Normocephalic, atraumatic. No lymphadenopathy noted. Pupils are equal, reactive to light. CV: S1 and S2 present. No murmurs, rubs, or gallops. ABDOMEN: Soft and nontender. Bowel sounds are present x2. EXTREMITIES: No edema. Pedal pulses are present x2. LUNGS: Clear to auscultation. No rhonchi or wheezes noted. NEUROVASCULAR: He is unable to move his lower extremities. : He does have a Darden catheter. SKIN: He does have a decubitus ulcer. LABORATORY RESULTS: As of the following; WBCs of 8.7, hemoglobin of 12.2, hematocrit of 36.2, and platelets of 349. Chemistry; sodium of 131, potassium of 4.2, BUN 10, creatinine 0.53. His urine did have 250 leukocyte esterase and 21 to 50 wbc's. ASSESSMENT AND PLAN: The patient is a 64-year-old male, who presents to the hospital with change in mental status. 1. Acute metabolic encephalopathy, unclear etiology at this time. I am not sure this is secondary to a superimposed urinary tract infection. However, the patient was on ciprofloxacin and upon reviewing the patient's chart, he had E coli on 08/02, which was sensitive to the ciprofloxacin, however, it was an intermediate sensitivity versus if this is a medication side effect from the antibiotic. However, if that would be the case, this would not happen toward the end of the antibiotics, this will happen maybe on the 4th or 5th day of antibiotic. However, it is unclear. At this time, we will continue to monitor him. He did have a CT brain, which was negative. We will start him on ceftriaxone based of his last culture and also his urine has been collected and this culture has been sent. His previous cultures have shown Staph epidermidis and E coli. However, the Staph epidermidis has been resistant to ceftriaxone. 2. Chronic Darden secondary to neurogenic bladder due to paraplegia. The patient's family had an appointment with Urology today. They really wanted to see Urology. I will go ahead and consult the on-call Urology Service to come by and see the patient since the family needs a little bit more help in terms of if any to keep the Darden catheter in permanently versus do frequent ins and outs versus a suprapubic catheter. I will consult Urology for further guidance on that. 3. Diabetes. We will continue his metformin. 4. Hypertension. We will continue his blood pressure medications. 5. Deep venous thrombosis prophylaxis. We will put the patient on SCDs and subcu Lovenox. Job ID: [id number]
[2019-08-15 06:31] LABS: #Eosinphils 0.2 thou/uL (0.0-0.7); #Monocytes 0.8 thou/uL (0.11-0.59); #Neutrophils 6.1 thou/uL (1.40-6.50); %Basophils 0.2 % (0.0-1.0); %Eosinophils 2.8 % (0.0-10.0); %Lymphocytes 12.5 % (21.0-51.0); %Monocytes 9.2 % (0.0-10.0); %Neutrophils 75.4 % (42.0-75.0); Hemoglobin 11.8 g/dL (14.0-18.0); Mean Corpuscular HGB CONC 33.8 g/dL (32.0-36.0); Mean Corpuscular Hemoglobin 31.8 pg (27.0-31.0); Mean Platelet Volume 6.1 fL (7.4-10.4); Platelet Count 322 thou/uL (130-400); RBC Distribution Width 14.1 % (11.5-14.5); Red Blood Cell (RBC) Count 3.71 mill/uL (4.70-6.10); White Blood Cell (WBC) Count 8.1 thou/uL (4.8-10.8)
[2019-08-15 06:52] LABS: Anion Gap 13 mmol/L (10-20); BUN (Urea Nitrogen) 8 mg/dL (8.4-25.7); Calc. Creatinine Clearance 176 mL/min (70-130); Calcium 9.5 mg/dL (7.8-10.44); Carbon Dioxide 27 mmol/L (23-31); Chloride 98 mmol/L (98-107); Estimated GFR-MDRD Greater than 90; Glucose 86 mg/dL (80-115); Potassium 3.9 mmol/L (3.5-5.1); Sodium 134 mmol/L (136-145)
[2019-08-15] MEDS ORDERED: Prevnar 13-Val Conj/PF 0.5 ML SYRINGE IM ONE (09:00)
[2019-08-15] MEDS ORDERED: FLU VACC TS2019-20(65YR UP)/PF 180 MCG/0.5 ML SYRINGE IM ONE (09:00)
[2019-08-15] MEDS: Lisinopril 10 MG TAB PO SCH (09:04)
[2019-08-15] MEDS: Famotidine 20 MG TAB PO SCH ×2 (09:04→20:34)
[2019-08-15] MEDS: metFORMIN 500 MG TAB PO SCH ×2 (09:04→20:34)
[2019-08-15] MEDS: Enoxaparin Sodium 40 MG/0.4 ML SYRINGE SC SCH (09:04)
[2019-08-15] MEDS: cefTRIAXone\\ROCEPHIN 1 GM in Sodium Chloride 0.9% 100 ML IVPB SCH (11:58)
--- NOTE | 2019-08-15 16:12 | PDOC.HOSPP ---
- Subjective Encounter Date: 08/15/19 Encounter Time: 14:00 Subjective: pt up in bed oriented to x2 - Objective Vital Signs & Weight: Vital Signs (12 hours) Temp Pulse Resp BP Pulse Ox 08/15/19 12:00 98 F 84 20 147/91 H 97 08/15/19 08:00 97.4 F L 82 20 142/86 H 97 Weight Admit Weight 158 lb 11.725 oz Weight 158 lb 11.725 oz I&O: 08/14/19 08/15/19 08/16/19 06:59 06:59 06:59 Output Total 150 Balance -150 Result Diagrams: 08/15/19 06:04 08/15/19 06:04 Additional Labs: Accuchecks 08/15/19 08/15/19 08/14/19 11:54 04:33 19:59 POC Glucose 87 95 141 H 08/14/19 16:45 POC Glucose 137 H Hospitalist ROS - Review of Systems Respiratory: denies: cough, dry, shortness of breath, hemoptysis, SOB with excertion, pleuritic pain, sputum, wheezing, other Cardiovascular: denies: chest pain, palpitations, orthopnea, paroxysmal noc. dyspnea, edema, light headedness, other Gastrointestinal: denies: nausea, vomiting, abdominal pain, diarrhea, constipation, melena, hematochezia, other - Medication Medications: Active Medications Generic Name Dose Route Start Last Admin Trade Name Freq PRN Reason Stop Dose Admin Enoxaparin Sodium 40 mg 08/15/19 09:00 08/15/19 09:04 Lovenox SC 40 mg 0900 POORNIMA Administration Famotidine 20 mg 08/14/19 21:00 08/15/19 09:04 Pepcid PO 20 mg BID POORNIMA Administration Ceftriaxone Sodium 1 gm/ 100 mls @ 200 mls/hr 08/15/19 11:00 08/15/19 11:58 Sodium Chloride IVPB 100 mls Q24HR POORNIMA Administration Lisinopril 10 mg 08/15/19 09:00 08/15/19 09:04 Zestril PO 10 mg DAILY POORNIMA Administration Metformin HCl 1,000 mg 08/14/19 21:00 08/15/19 09:04 Glucophage PO 1,000 mg BID POORNIMA Administration Sodium Chloride 10 ml 08/14/19 21:00 08/15/19 09:05 Flush - Normal Saline IVF 10 ml Q12HR POORNIMA Administration - Exam Neck: negative: supple, symmetric, no JVD, no thyromegaly, no lymphadenopathy, no carotid bruit, JVD Heart: negative: RRR, no murmur, no gallops, no rubs, normal peripheral pulses, irregular, diminshed peripheral pulses, murmur present, II/IV, III/IV Respiratory: negative: CTAB, no wheezes, no rales, no ronchi, normal chest expansion, no tachypnea, normal percussion, rales, rhonchi, tachypneic, wheezes Hosp A/P (1) Acute metabolic encephalopathy Code(s): G93.41 - METABOLIC ENCEPHALOPATHY Status: Acute (2) UTI (urinary tract infection) Status: Acute (3) Diabetes type 2, controlled Code(s): E11.9 - TYPE 2 DIABETES MELLITUS WITHOUT COMPLICATIONS Status: Chronic (4) Hypertension Code(s): I10 - ESSENTIAL (PRIMARY) HYPERTENSION Status: Chronic - Plan will continue abx for now, neurology consulted. He just finished dose of cipro. will get mri brain. possible delirium.
[2019-08-15] MEDS: Acetaminophen 325 MG TAB PO PRN (22:46)
[2019-08-16] MEDS: Acetaminophen 325 MG TAB PO PRN (03:23)
[2019-08-16] MEDS: Enoxaparin Sodium 40 MG/0.4 ML SYRINGE SC SCH (08:02)
[2019-08-16] MEDS: Famotidine 20 MG TAB PO SCH ×2 (08:02→20:07)
[2019-08-16] MEDS: metFORMIN 500 MG TAB PO SCH ×2 (08:02→20:06)
[2019-08-16] MEDS: Lisinopril 10 MG TAB PO SCH (08:02)
--- NOTE | 2019-08-16 10:49 | CON ---
DATE OF CONSULTATION: 08/16/2019 CONSULTING PHYSICIAN: Hospitalist Service. IMPRESSION: 1. Reported increased confusion. 2. History of frequent urinary tract infections. 3. Paraplegia. 4. History of lung cancer. 5. Diabetes. PLAN: Monitor clinical course. HISTORY OF PRESENT ILLNESS: Mr. Leone is a 64-year-old man, who has a history of chronic paraplegia. He has had frequent urinary tract infections secondary to his indwelling catheter. He was recently treated with ciprofloxacin for urinary tract infection. His thought he was somewhat more confused than usual. She brought him to the emergency room. CT of the brain was unremarkable. His lab work was unremarkable. His vital signs have been stable. He is afebrile. He is without any particular complaints at this point. His is not here to give me any further history. PAST MEDICAL HISTORY: As listed above. ALLERGIES: NONE REPORTED. SOCIAL HISTORY: No tobacco or illicit drug use. FAMILY HISTORY: Noncontributory. REVIEW OF SYSTEMS: Ten-system review of systems is otherwise negative. PHYSICAL EXAMINATION: GENERAL: He is a reasonably well-nourished, middle-aged man, in no acute distress. VITAL SIGNS: Stable. He is afebrile. HEENT: Pupils are equal and reactive. Conjunctivae clear. Oropharynx clear. Cranium, normocephalic and atraumatic. NECK: Supple. No lymphadenopathy. EXTREMITIES: No cyanosis, clubbing, or edema. NEUROLOGIC: He was alert and cooperative. His speech is fluent and clear. He was oriented to time and person, but was confused on his current location. He follows commands appropriately. Cranial nerves 2 through 12 are intact. Motor exam showed good strength in both upper extremities. He is completely paralyzed in both lower extremities. Sensation was diminished to touch to the T4 sensory level. No abnormal movements were seen. LABORATORY DATA: Laboratory studies were reviewed. IMAGING STUDIES: EKG shows sinus rhythm. SUMMARY: A middle-aged man with reported mild confusion. He seems appropriate and cooperative at this point. Ciprofloxacin can cause encephalopathy. He is currently on Rocephin. We will follow up with his to see if she has any further information, but do not see anything remarkable that needs to be done at this point. Job ID: [id number]
[2019-08-16] MEDS: cefTRIAXone\\ROCEPHIN 1 GM in Sodium Chloride 0.9% 100 ML IVPB SCH (11:06)
--- NOTE | 2019-08-16 18:06 | PDOC.HOSPP ---
- Subjective Encounter Date: 08/16/19 Encounter Time: 15:00 Subjective: pt up in bed did not sleep well last night. - Objective Vital Signs & Weight: Vital Signs (12 hours) Temp Pulse Resp BP Pulse Ox 08/16/19 16:21 97.6 F 86 18 153/77 H 99 08/16/19 11:12 97.6 F 86 17 136/81 99 08/16/19 07:23 97.9 F 75 19 132/81 95 Weight Admit Weight 158 lb 11.725 oz Weight 158 lb 11.725 oz I&O: 08/15/19 08/16/19 08/17/19 06:59 06:59 06:59 Intake Total 600 600 Output Total 150 950 Balance -150 -350 600 Result Diagrams: 08/15/19 06:04 08/15/19 06:04 Additional Labs: Accuchecks 08/16/19 08/16/19 08/15/19 16:26 11:19 19:18 POC Glucose 83 98 172 H Hospitalist ROS - Review of Systems Cardiovascular: denies: chest pain, palpitations, orthopnea, paroxysmal noc. dyspnea, edema, light headedness, other Gastrointestinal: denies: nausea, vomiting, abdominal pain, diarrhea, constipation, melena, hematochezia, other Genitourinary: denies: dysuria, frequency, incontinence, hematuria, retention, other - Medication Medications: Active Medications Generic Name Dose Route Start Last Admin Trade Name Freq PRN Reason Stop Dose Admin Acetaminophen 650 mg 08/14/19 15:56 08/16/19 03:23 Tylenol PO 650 mg Q4H PRN Administration Headache/Fever/Mild Pain (1-3) Enoxaparin Sodium 40 mg 08/15/19 09:00 08/16/19 08:02 Lovenox SC 40 mg 0900 POORNIMA Administration Famotidine 20 mg 08/14/19 21:00 08/16/19 08:02 Pepcid PO 20 mg BID POORNIMA Administration Lisinopril 10 mg 08/15/19 09:00 08/16/19 08:02 Zestril PO 10 mg DAILY POORNIMA Administration Metformin HCl 1,000 mg 08/14/19 21:00 08/16/19 08:02 Glucophage PO 1,000 mg BID POORNIMA Administration Sodium Chloride 10 ml 08/14/19 21:00 08/16/19 08:03 Flush - Normal Saline IVF 10 ml Q12HR POORNIMA Administration - Exam Neck: negative: supple, symmetric, no JVD, no thyromegaly, no lymphadenopathy, no carotid bruit, JVD Heart: negative: RRR, no murmur, no gallops, no rubs, normal peripheral pulses, irregular, diminshed peripheral pulses, murmur present, II/IV, III/IV Respiratory: negative: CTAB, no wheezes, no rales, no ronchi, normal chest expansion, no tachypnea, normal percussion, rales, rhonchi, tachypneic, wheezes Gastrointestinal: negative: soft, non-tender, non-distended, normal bowel sounds , no palpable masses, no hepatomegaly, no splenomegaly, no bruit, no guarding, no rigidity, tender to palpation, distended, diminished bowl sounds, voluntary guarding Hosp A/P (1) Acute metabolic encephalopathy Code(s): G93.41 - METABOLIC ENCEPHALOPATHY Status: Acute (2) UTI (urinary tract infection) Status: Acute (3) Diabetes type 2, controlled Code(s): E11.9 - TYPE 2 DIABETES MELLITUS WITHOUT COMPLICATIONS Status: Chronic (4) Hypertension Code(s): I10 - ESSENTIAL (PRIMARY) HYPERTENSION Status: Chronic - Plan urine cx negative will stop iv abx. spoke with urology who will not see the pt while he is inhouse. Recommended to follow up. will get records from [facility]. pt's family wants oncology to be on board, will consult. I am not sure if this is pt's new baseline. He answers all questions but at night he gets confused. I will add melatonin and prn seroquel. He worked with PT today. pt's ducubutis ulcer does not look infectious.
[2019-08-16] MEDS: Melatonin 3 MG TAB PO SCH (20:07)
[2019-08-17 04:30] LABS: Thyroid Stimulating Hormone 0.9076 uIU/mL (0.35-4.94)
[2019-08-17] MEDS: metFORMIN 500 MG TAB PO SCH ×2 (07:42→20:39)
[2019-08-17] MEDS: Enoxaparin Sodium 40 MG/0.4 ML SYRINGE SC SCH (07:42)
[2019-08-17] MEDS: Lisinopril 10 MG TAB PO SCH (07:43)
[2019-08-17] MEDS: Famotidine 20 MG TAB PO SCH ×2 (07:43→20:40)
[2019-08-17] MEDS ORDERED: Lorazepam 2 MG/ML VIAL SLOW IVP PRN (10:02)
--- NOTE | 2019-08-17 11:13 | MRI ---
MRI Brain W WO Con: 08/17/2019 4:01 PM CLINICAL HISTORY: History of pulmonary malignancy and metastatic disease, altered mental status. COMPARISON: Recent head CT 08/14/2019 is referenced FINDINGS: Extra axial spaces: Normal in size and morphology for the patient's age. Acute infarction: There is a tiny focus of restricted diffusion at the inferior most aspect of the ce rebellar vermis, to the left of midline, at the level of the vermian nodule. Ventricular system: Normal in size and morphology for the patient's age. Basal cisterns: Normal. Cerebral parenchyma: Minimal periventricular white matter signal alteration. Midline shift: None. Cerebellum: Punctate focus of restricted diffusion, inferiorly, as above. Brainstem: Normal. Paranasal sinuses:Mucosal thickening and retention cyst formation. Intraaxial Enhancement: None Fat signal intensity focus of the right suboccipital scalp indicates a lipoma, 2 x 1.1 cm in axial di ameter. IMPRESSION:Punctate restricted diffusion involving the inferior cerebellar vermis, at the level of th e vermian nodule, to left of midline, indicating minute focus of acute ischemia.
--- NOTE | 2019-08-17 17:47 | PDOC.HOSPP ---
- Subjective Encounter Date: 08/17/19 Encounter Time: 14:00 Subjective: Mr. Leone was seen today in follow-up. He tells me he is coming out of the " fog " now. He says he is not sure what happened, but thinks it has to do with being in the hospital too many times. - Objective Vital Signs & Weight: Vital Signs (12 hours) Temp Pulse Resp BP Pulse Ox 08/17/19 07:27 97.9 F 94 18 162/84 H 93 L Weight Admit Weight 158 lb 11.725 oz Weight 158 lb 11.725 oz I&O: 08/16/19 08/17/19 08/18/19 06:59 06:59 06:59 Intake Total 600 840 480 Output Total 950 1200 Balance -350 -360 480 Result Diagrams: 08/15/19 06:04 08/15/19 06:04 Additional Labs: Accuchecks 08/17/19 08/17/19 08/17/19 16:11 11:25 04:46 POC Glucose 101 98 92 08/16/19 19:37 POC Glucose 130 H Hospitalist ROS - Medication Medications: Active Medications Generic Name Dose Route Start Last Admin Trade Name Freq PRN Reason Stop Dose Admin Acetaminophen 650 mg 08/14/19 15:56 08/16/19 03:23 Tylenol PO 650 mg Q4H PRN Administration Headache/Fever/Mild Pain (1-3) Enoxaparin Sodium 40 mg 08/15/19 09:00 08/17/19 07:42 Lovenox SC 40 mg 0900 POORNIMA Administration Famotidine 20 mg 08/14/19 21:00 08/17/19 07:43 Pepcid PO 20 mg BID POORNIMA Administration Lisinopril 10 mg 08/15/19 09:00 08/17/19 07:43 Zestril PO 10 mg DAILY POORNIMA Administration Melatonin 6 mg 08/16/19 21:00 08/16/19 20:07 Melatonin PO 6 mg HS POORNIMA Administration Metformin HCl 1,000 mg 08/14/19 21:00 08/17/19 07:42 Glucophage PO 1,000 mg BID POORNIMA Administration Quetiapine Fumarate 25 mg 08/16/19 16:25 08/16/19 20:07 Seroquel PO 25 mg HS PRN Administration Agitation Sodium Chloride 10 ml 08/14/19 21:00 08/17/19 07:43 Flush - Normal Saline IVF 10 ml Q12HR POORNIMA Administration - Exam Eye: PERRL Heart: RRR, no murmur, no gallops, no rubs, normal peripheral pulses Respiratory: CTAB, no wheezes, no rales, no ronchi, normal chest expansion, no tachypnea, normal percussion Gastrointestinal: soft, non-tender, non-distended, normal bowel sounds, no palpable masses, no hepatomegaly, no splenomegaly, no guarding, no rigidity Extremities: no cyanosis, no edema Musculoskeletal: diffuse muscle atrophy (in both lower extremities, and paralysis in both legs ( paraplegia)) Hosp A/P (1) Acute metabolic encephalopathy Code(s): G93.41 - METABOLIC ENCEPHALOPATHY Status: Acute (2) Urinary retention Code(s): R33.9 - RETENTION OF URINE, UNSPECIFIED Status: Acute (3) Diabetes type 2, controlled Code(s): E11.9 - TYPE 2 DIABETES MELLITUS WITHOUT COMPLICATIONS Status: Chronic (4) Hypertension Code(s): I10 - ESSENTIAL (PRIMARY) HYPERTENSION Status: Chronic - Plan * Metabolic encephalopathy- ? etiology- however this has resolved * MRI results noted, but I do not believe this tiny infarct caused his symptoms * HTN- blood pressure has been a bit labile- will continue to monitor * Will discuss with his , I suspect he can be discharged home
--- NOTE | 2019-08-17 19:23 | CON ---
DATE OF CONSULTATION: 08/17/2019 REASON FOR CONSULTATION: Sarcomatoid carcinoma and altered mental status. HISTORY OF PRESENT ILLNESS: The patient is a 64-year-old man with a history of a metastatic sarcomatoid carcinoma, likely a lung primary, who was admitted for new-onset altered mental status. His history is complex and begins in late 2017 when he presented with back pain requiring hospitalizations. Scan showed metastatic disease within the lungs and spine. There was a soft tissue mass within the right 9th rib and a biopsy showed a sarcomatoid carcinoma confirmed by the [facility]. He underwent palliative radiation and subsequently underwent 3 cycles of chemotherapy utilizing carboplatin/Taxol/Keytruda. In April, a PET scan was negative indicating a complete response. Keytruda maintenance was planned as the tumor is PD-L1 at 90%, but he developed more severe back pain, a pathologic fracture in the thoracic spine, and new bilateral lower extremity weakness in April. An evaluation there was indeterminate and he was subsequently transferred to [place] for further evaluation. I have no source documents for review. However, it appears the conclusion was that this was a consequence of prior malignancy and treatment damage. He was subsequently transferred back to [place] and has been in a rehabilitation setting since that time. On the day of admission, he was noted to have altered mental status, agitation, and some confusion. He was brought to the emergency room and admitted for further evaluation. Initial impression was that there may have been a urinary tract infection, which he suffered from chronically having an indwelling Darden catheter. However, cultures have been negative and a full metabolic evaluation has also been normal. An MRI of the brain showed no evidence of metastatic disease or explanation for the altered mental status. Since admission, there has been perhaps some improvement, although the describes him as continuing to be lethargic, intermittently agitated, and somewhat confused. I am asked to see the patient at this time to provide further management recommendations from an oncologic viewpoint. ALLERGIES: NONE. MEDICATIONS: 1. Lovenox. 2. Tylenol. 3. Pepcid. 4. Lisinopril. 5. Ativan at bedtime, given only last night. 6. Melatonin. 7. Metformin. 8. He also takes Seroquel p.r.n. MEDICAL ILLNESS: There is a history of diabetes and hypertension. SURGERIES: 1. Had varicocele repair. 2. Left inguinal hernia repair. 3. 9th rib biopsy. 4. MediPort placement. 5. Intrathecal pain pump. 6. Surgery on T11 to reduce and stabilize a pathologic fracture. 7. Lumbar surgery for herniated disk. SOCIAL HISTORY: He does not use alcohol or drugs. He smoked as a teenager, but has not used tobacco for decades. He lives with his family, and his is present at the bedside. FAMILY HISTORY: There is a history of diabetes, but no history of malignancy. PHYSICAL EXAMINATION: VITAL SIGNS: Temperature 97.9, pulse 74 and regular, respirations 20, blood pressure 112/69, O2 saturation on room air 93%. GENERAL: The patient is a well-developed and well-nourished man. He responds to questioning, but is lethargic. HEENT: His extraocular movements are intact. Pupils are equal, round, and reactive to light. NECK: Supple. LUNGS: Clear. CARDIOVASCULAR: Regular rate and rhythm without murmur, rub, gallop, or click. ABDOMEN: No tenderness, organomegaly, masses, bruits, or ascites. There is a pain pump in the left lower quadrant. EXTREMITIES: The patient is paraplegic. LYMPH: No adenopathy. MUSCULOSKELETAL: No active arthritis. NEUROLOGICAL: Lower extremity paraplegia. LABORATORY DATA: White blood cell count 8.1, hemoglobin 11.8, and platelet count 322,000. Chemistry showed normal electrolytes except for sodium of 131. Calcium is 10.1, and liver function studies are normal. Creatinine is 0.53. A random blood sugar most recently was 95. The B12 and TSH are both normal. IMAGING DATA: An MRI of the brain today showed a tiny, punctate area of restricted diffusion involving the inferior cerebellar vermis, left of midline that may indicate a minute focus of acute ischemia. However, there is no evidence of malignancy and no explanation for the lethargy. IMPRESSION: 1. 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 2. Bilateral paraplegia. 3. Altered mental status of unclear etiology. RECOMMENDATIONS: I discussed findings at length with the patient and his , who is at the bedside. At this point, there is no clear explanation for the lethargy and agitation although Ativan last night to prepare him for the MRI may be now contributing. I would continue to provide him with comfort measures in general support and we will follow with you at this time. Thank you very much for allowing me to provide my recommendations. Job ID: [id number] DIANNA
[2019-08-17] MEDS: Melatonin 3 MG TAB PO SCH (20:40)
[2019-08-18] MEDS: Enoxaparin Sodium 40 MG/0.4 ML SYRINGE SC SCH (07:43)
[2019-08-18] MEDS: Lisinopril 10 MG TAB PO SCH (07:44)
[2019-08-18] MEDS: metFORMIN 500 MG TAB PO SCH (07:44)
[2019-08-18] MEDS: Famotidine 20 MG TAB PO SCH (07:44)
--- NOTE | 2019-08-18 10:50 | PDOC.HOSPP ---
- Subjective Encounter Date: 08/18/19 Encounter Time: 10:48 Subjective: Mr. Leone was seen today in follow-up of metabolic encephalopathy. No new problems voiced. His is at the bedside. - Objective Vital Signs & Weight: Vital Signs (12 hours) Temp Pulse Resp BP Pulse Ox 08/18/19 08:00 95 08/18/19 05:07 98.3 F 80 18 145/87 H 93 L 08/17/19 23:56 98.6 F 86 20 137/84 95 Weight Admit Weight 158 lb 11.725 oz Weight 158 lb 11.725 oz I&O: 08/17/19 08/18/19 08/19/19 06:59 06:59 06:59 Intake Total 840 720 360 Output Total 1200 Balance -360 720 360 Result Diagrams: 08/15/19 06:04 08/15/19 06:04 Additional Labs: Accuchecks 08/18/19 08/17/19 08/17/19 05:08 20:13 16:11 POC Glucose 87 170 H 101 08/17/19 11:25 POC Glucose 98 Hospitalist ROS - Medication Medications: Active Medications Generic Name Dose Route Start Last Admin Trade Name Freq PRN Reason Stop Dose Admin Acetaminophen 650 mg 08/14/19 15:56 08/16/19 03:23 Tylenol PO 650 mg Q4H PRN Administration Headache/Fever/Mild Pain (1-3) Enoxaparin Sodium 40 mg 08/15/19 09:00 08/18/19 07:43 Lovenox SC 40 mg 0900 POORNIMA Administration Famotidine 20 mg 08/14/19 21:00 08/18/19 07:44 Pepcid PO 20 mg BID POORNIMA Administration Lisinopril 10 mg 08/15/19 09:00 08/18/19 07:44 Zestril PO 10 mg DAILY POORNIMA Administration Melatonin 6 mg 08/16/19 21:00 08/17/19 20:40 Melatonin PO 6 mg HS POORNIMA Administration Metformin HCl 1,000 mg 08/14/19 21:00 08/18/19 07:44 Glucophage PO 1,000 mg BID POORNIMA Administration Quetiapine Fumarate 25 mg 08/16/19 16:25 08/16/19 20:07 Seroquel PO 25 mg HS PRN Administration Agitation Sodium Chloride 10 ml 08/14/19 21:00 08/18/19 07:45 Flush - Normal Saline IVF 10 ml Q12HR POORNIMA Administration - Exam Eye: PERRL, anicteric sclera Heart: RRR, no murmur, no gallops, no rubs, normal peripheral pulses Respiratory: CTAB, no wheezes, no rales, no ronchi, normal chest expansion, no tachypnea, normal percussion Gastrointestinal: soft, non-tender, non-distended, normal bowel sounds, no palpable masses, no hepatomegaly, no splenomegaly, no bruit, no guarding Neurological: no focal deficits (Paraplegia) Musculoskeletal: diffuse muscle atrophy (in both lower extremities) Psychiatric: normal behavior Hosp A/P (1) Acute metabolic encephalopathy Code(s): G93.41 - METABOLIC ENCEPHALOPATHY Status: Acute (2) Urinary retention Code(s): R33.9 - RETENTION OF URINE, UNSPECIFIED Status: Acute (3) Diabetes type 2, controlled Code(s): E11.9 - TYPE 2 DIABETES MELLITUS WITHOUT COMPLICATIONS Status: Chronic (4) Hypertension Code(s): I10 - ESSENTIAL (PRIMARY) HYPERTENSION Status: Chronic - Plan * Metabolic encephalopathy- resolved- I suspect he may have some pseudo-dementia * MRI results - discussed with the patient's * HTN- blood pressure has improved * Discharge was held over until today, so that his could prepare * Discharge home today
[2019-08-18 11:42] VITALS: BP 142/84; TEMP 97.2
--- NOTE | 2019-08-18 13:19 | CON ---
DATE OF CONSULTATION: 08/18/2019 Mr. Leone had uneventful evening. There was no reported agitation or delirium. His was in the room today. We discussed the events that led to his admission. He has been getting a bit frustrated and depressed since his paraplegia developed 4 to 5 months ago. 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 He has not been sleeping appropriate schedule. His reports he sleeps a lot of the day away and then has trouble sleeping at night. His MRI of the brain was reviewed, only shows a punctate area of abnormality in the cerebellum, which is inconsequential. His lab work is otherwise unremarkable. I suspected the main issues that led to his admission related to depression and him lashing out in frustration. We will try an antidepressant, and I will be following up with him in about a week. Job ID: [id number]
[2019-08-19] MEDS ORDERED: Citalopram 20 MG TAB PO SCH (09:00)
--- NOTE | 2019-08-19 12:53 | DIS ---
DATE OF ADMISSION: 08/17/2019 DATE OF DISCHARGE: 08/18/2019 PRIMARY CARE PHYSICIAN: Dr. Calin Seymour. DISCHARGE DISPOSITION: Home. PRIMARY DISCHARGE DIAGNOSES: 1. Metabolic encephalopathy. 2. 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 3. Hypertension. 4. Diabetes mellitus, type 2. 5. History of metastatic sarcomatoid cancer. DISCHARGE MEDICATIONS: Include; 1. Ativan 0.5 mg b.i.d. p.r.n. 2. Zofran 4 mg p.o. q.6 as needed. 3. Colace 100 mg twice daily. 4. Zinc sulfate 220 mg p.o. daily. 5. Metformin 1000 mg twice a day. 6. Lisinopril 10 mg daily. 7. Iron sulfate 325 mg p.o. t.i.d. 8. Pepcid 20 mg twice daily. 9. Tylenol with codeine 1 tablet q.6 as needed for pain. LABORATORY DATA: Lab and imaging: The patient had a CT scan of the brain showing mild motion artifact, but no mass or bleed. The patient also had an MRI of the brain showing a punctate restricted diffusion involving the inferior cerebellar vermis showing a minute focus of an acute infarct. CODE STATUS: Full code. ALLERGIES: ALLERGIES ARE TO BACLOFEN AND PROMETHAZINE. HOSPITAL COURSE: Mr. Leone is a pleasant 64-year-old gentleman, who was brought into the hospital by his who stated that he was acting altered, he was getting confused, trying to get out of bed and apparently being verbally abusive to his . He had problems with urinary tract infections in the past and this was the initial suspected problem. However, urinalysis on admission only showed a few white blood cells in the urine and the urine culture was negative as well as blood cultures. There was no other evidence of obvious infection and no fever, and a CT scan was also done which was negative. Due to the 's concerns, a Neurology as well as Oncology consults both were obtained. MRI of the brain was also done showing a minute area of infarct in the cerebellum, which was thought likely not to be contributing to this current presentation. He was also evaluated by Oncology and it was felt that there was no clear explanation for the lethargy and agitation. I spoke with the about his symptoms and the patient himself had told me that he realize he was coming "out of the fog" and when I asked him what he thought was going on, he says that he was tired of being in and out of the hospital and admitted that he did suffer some depression around these multiple hospitalizations. It is possible that his symptoms could be due to a pseudodementia. I discussed this with the patient and the . She seemed a bit reluctant about this and also was reluctant about taking him back home. It was interesting the interaction, he seemed to be more agitated when the was in the room and it seems that they may have developed some degree of dysfunctional communication. I told her that it would probably be best to leave any further medication additions up to the primary care physician since he likely is more familiar with the patient in the patient's overall clinical case. However, it would be my recommendation to add an antidepressant, which I did explain to both she as well as the patient. We will be adding a mild antianxiety medicine however, but once again, I suspect that due to the patient's multiple medical problems and chronic conditions in and out of the hospital that some of his symptoms are likely related to depression. Job ID: [id number]
--- NOTE | 2019-08-20 07:10 | PQF ---
[employer] GEORGE Cameron ROBERT HUBBARD MD [id number] [facility] [id number] CLINICAL DOCUMENTATION CLARIFICATION FORM: POST DISCHARGE Addendum to original discharge summary date: ____ Late entry note date: __ DATE: 08/20/2019 ATTN: ROBERT HUBBARD MD Please exercise your independent, professional judgment in responding to the clarification form. Clinical indicators are provided on the bottom of this form for your review Please check appropriate box(s): Depression Severity: [ ] Mild [ ] Moderate [ ] Severe [ ] Other diagnosis [ ] Unable to determine In addition, please specify: Present on Admission (POA): [ ] Yes [ ] No [ ] Unable to determine For continuity of documentation, please document condition throughout progress notes and discharge summary. Thank You. CLINICAL INDICATORS - SIGNS / SYMPTOMS / LABS his symptoms are likely related to depression - Documented in DS on 08/18 by ROBERT HUBBARD MD Acting altered and confused - Documented in DS on 08/18 by ROBERT HUBBARD MD Possible Pseudodementia - Documented in DS on 08/18 by ROBERT HUBBARD MD He tried being in and out of the hospital and admitted that he did suffer some depression around these multiple hospitalization - Documented in DS on 08/18 by ROBERT HUBBARD MD it is possible his symptoms could be due to Pseudodementia Documented in DS on 08/18 by ROBERT HUBBARD MD RISK FACTORS DM-Documented in DS on 08/18 by ROBERT HUBBARD MD Metabolic encephalopathy - Documented in DS on 08/18 by ROBERT HUBBARD MD TREATMENT: To add an antidepressant - Documented in DS on 08/18 by ROBERT HUBBARD MD will adding mild antianxiety medication - Documented in DS on 08/18 by ROBERT HUBBARD MD [employer] (This form is maintained as a part of the permanent medical record) 2014 [employer], [employer]. All Rights Reserved [email or web address] [not provided] DIANNA
--- NOTE | 2019-08-23 12:28 | PQF ---
GEORGE MAJOR TONI MD [id number] CLINICAL DOCUMENTATION IMPROVEMENT CLARIFICATION FORM: ICD-10 Updated PLEASE DO AN ADDENDUM TO THE PROGRESS NOTE WITH ANY DOCUMENTATION UPDATES OR ADDITIONS AND CARRY THROUGH TO DC SUMMARY. THANK YOU. DATE: 08-23-19 ATTN: DR. HUBBARD Please exercise your independent, professional judgment in responding to the clarification form. Clinical indicators are provided on the bottom of this form for your review Please check appropriate box(s): Conflicting documentation was noted in the Medical Record, please clarify if patient is being treated/monitored [ ] Pressure Ulcer Sacrococcygeal Stage IV per wound care [ ] Pressure Ulcer Sacrum stage 3 per ED [ ] Other diagnosis [ ] Unable to determine In addition, please specify: Present on Admission (POA): [ ] Yes [ ] No [ ] Unable to determine For continuity of documentation, please document condition throughout progress notes and discharge summary. Thank You. CLINICAL INDICATORS - SIGNS / SYMPTOMS / LABS * 10-2 (Dom) H&P: Physical Exam - he does have a decubitus ulcer * PU SACROCOCCYGEAL - STAGE IV - WOUND CARE ASSESSMENT 08-15 * PU TO SACRUM - STAGE 3 - ED RISK FACTORS: 10-2 (Dom): Paraplegic - possible autoimmune cause TREATMENTS: Wound care consult -08/15/19 stg IV to scg, fredohobimal, foam composite dressing THANK YOU, JUSTINA (This form is maintained as a part of the permanent medical record) 2014 [employer]. All Rights Reserved Justina Fink RN, BS [email or web address] [employer] [facility] HOSPITALJarrod
--- NOTE | 2019-08-25 02:06 | EKG ---
Test Reason : AMS Blood Pressure : / mmHG Vent. Rate : 099 BPM Atrial Rate : 099 BPM P-R Int : 160 ms QRS Dur : 088 ms QT Int : 356 ms P-R-T Axes : 055 061 061 degrees QTc Int : 456 ms Sinus rhythm with Fusion complexes Low voltage QRS No STEMI Borderline Prolonged QT Confirmed by GALLITO HOOVER M.D. ([id number]), purchasing expeditor ALIN TAVARES ([id number]) on 08/25/2019 2:06:16 AM Referred By: Confirmed By:GALLITO HOOVER M.D.
== END 2019-08-18 13:58 | disposition home or self-care (01) | DRG 881 ==
LOC: ERS 23:57 → ERHOLD 08-14 03:57 → T4-A 08-14 11:51 → OBSVTOIN 08-17 18:43
PROVIDERS: ADMIT Internal Medicine; ATTEND Internal Medicine
DX: F32.9 Major depressive disorder, single episode, unspecified (principal); G93.41 Metabolic encephalopathy; E11.9 Type 2 diabetes mellitus without complications; Z79.84 Long term (current) use of oral hypoglycemic drugs; Z87.891 Personal history of nicotine dependence; Z98.890 Other specified postprocedural states; I10 Essential (primary) hypertension; Z85.89 Personal history of malignant neoplasm of other organs and systems
CPT/HCPCS: 36415; 36416; 51702; 70450; 70553; 80048; 80053; 80306; 80307; 81003; 81015; 82140; 82306; 82607; 83605; 84443; 85025; 87040; 87086; 93005; 96374; J0696; J1650; J3490